=== PATIENT | female | born 1945 | race Caucasian/White ===

== ENCOUNTER → 2017-07-26 07:08 | Outpatient (CLI) | payer MEDICARE, SELFPAY ==
[2017-07-26 10:10] LABS: Absolute Lymphocyte Count 1.75 X10^3/ul (0.83-4.51); Absolute Neutrophil Count 1.3 X10^3/uL (2.0-7.7); Basophil# 0.02 X10^3/uL; Basophil% 0.6 % (0-1); Eosinophil# 0.13 X10^3/uL; Eosinophils% 3.7 % (0-5); Hematocrit 35.9 % (37-47); Hemoglobin 11.8 g/dl (12.0-15.0); Lymphocyte # 1.75 X10^3/ul (4.0); Lymphocyte % 49.7 % (19-41); Mean Corp Hgb Conc 32.9 g/gl (32-36); Mean Corpuscular Hgb 29.5 pg (27.0-32.0); Mean Corpuscular Volume 89.8 fL (81-99); Mean Platelet Vol. 9.3 fl (6.2-12.0); Monocyte# 0.35 X10^3/uL; Monocyte% 9.9 % (0-10); Neutrophil # 1.27 X10^3/uL (2.7-7.7); Neutrophil % 36.1 % (47-70); POSITIVE COUNT NO; POSITIVE DIFFERENTIAL NO; POSITIVE MORPHOLOGY NO; Platelet Count 174 K/mm3 (150-450); RBC Distribution Width CV 13.1 % (11.6-14.6); RBC Distribution Width SD 42.4 fl (35.1-43.9); White Blood Count 3.5 K/mm3 (4.4-11.0)
[2017-07-26 10:20] LABS: Albumin, Serum 3.5 g/dL (3.2-5.0); BUN 27 mg/dL (7-18); BUN/Creat Ratio 29.9 RATIO (10-20); Calcium,Total 8.4 mg/dL (8.5-10.1); Chloride 104 mmol/L (98-107); EST Glomerular Filtration Rate 65 mL/min (>60); Est Glom Filt Rate - Afr Amer 79 mL/min (>60); Glucose 104 mg/dL (74-106); Magnesium 1.7 mg/dL (1.6-2.6); Phosphorus 2.8 mg/dL (2.5-4.9); Potassium 3.2 mmol/L (3.5-5.1); Sodium Level 139 mmol/L (136-145)
[2017-07-27 09:00] LABS: Vitamin D,25 Hydroxy 27.7 ng/mL (19.95-100.01)
[2017-07-27 09:03] LABS: PTHIN 44.4 pg/mL (18.4-80.1)
== END ==
PROVIDERS: Family Provider Family Medicine; PCP Family Medicine; Visit Provider Internal Medicine Nephrology
DX: N18.3 Chronic kidney disease, stage 3 (moderate) (principal); D63.1 Anemia in chronic kidney disease; E55.9 Vitamin D deficiency, unspecified
CPT/HCPCS: 36415; 80069; 82306; 82570; 83735; 83970; 85025

== ENCOUNTER → 2017-10-13 14:12 | Outpatient (CLI) | payer MEDICARE, SELFPAY ==
[2017-10-13 14:23] LABS: Bacteria 0 SEEN /hpf (None Seen); Mucous, Urine 0 SEEN /hpf (<or=2+); Squamous Epithelial Cells - UA 0 SEEN /hpf (5-10)
[2017-10-13 14:28] LABS: Color, Urine Yellow (Yellow); Glucose, Dipstick 1000 mg/dl (Normal); Ketone-Dipstick Negative (Negative); Leukocyte Esterase-Dipstick 25 /ul (Negative); Nitrite-Dipstick Negative (Negative); Occult Blood-Urine 250 /ul (Negative); Protein-Dipstick 15 mg/dl (Negative); Urine Bilirubin Dipstick Negative (Negative); Urine Clarity Clear (Clear); Urine Urobilinogen Normal (Normal)
[2017-10-13 14:38] LABS: White Blood Cells 5-10 SEEN /hpf (0-5)
[2017-10-13 14:40] LABS: Red Blood Cells-Urine 5-10 SEEN /hpf (0-5)
== END ==
PROVIDERS: Family Provider Family Medicine; PCP Family Medicine; Visit Provider Nurse Practitioner Family
DX: N39.0 Urinary tract infection, site not specified (principal)
CPT/HCPCS: 81001; 87086; 87088; 87186

== ENCOUNTER → 2017-12-05 08:44 | Outpatient (CLI) | payer MEDICARE, SELFPAY ==
--- NOTE | 2017-12-05 09:04 | RAD_ITS ---
STUDY: X-RAY - ACUTE ABDOMINAL SERIES REASON FOR EXAM: Female, 72 years old. Abdominal pain for 2 weeks, most prominent in the right lower quadrant. History of colon cancer, hysterectomy, appendectomy, bladder wall repair. TECHNIQUE: Single view of the chest. Supine, and erect view(s) of the abdomen were obtained. COMPARISON: None. FINDINGS: The lungs are clear and expanded. Normal size heart. Normal mediastinum and ines. Normal visualized pulmonary arteries. There is mild atherosclerotic calcification of the aortic arch. There is a non-specific bowel gas pattern. There is no demonstrated free intraperitoneal air. Surgical clips of prior cholecystectomy project in the right upper quadrant of the abdomen. There are a few small calcified phleboliths in the right pelvic soft tissues. There are multilevel degenerative changes of the visualized spine, as well as early degenerative arthrosis of the bilateral sacroiliac and hip joints. RAD/Acute Abdomen Inc Chest IMPRESSION: 1. Prior cholecystectomy. 2. Nonspecific bowel gas pattern. No free gas. 3. No acute cardiopulmonary disease. Electronically Signed: Ajiht Bah MD at 19:28 EDT , Service support ,
[2017-12-05 10:26] LABS: Absolute Lymphocyte Count 1.46 X10^3/ul (0.83-4.51); Absolute Neutrophil Count 1.4 X10^3/uL (2.0-7.7); Basophil# 0.02 X10^3/uL; Basophil% 0.6 % (0-1); Eosinophil# 0.12 X10^3/uL; Eosinophils% 3.7 % (0-5); Hematocrit 37.1 % (37-47); Hemoglobin 12.4 g/dl (12.0-15.0); Lymphocyte # 1.46 X10^3/ul (4.0); Lymphocyte % 44.5 % (19-41); Mean Corp Hgb Conc 33.4 g/gl (32-36); Mean Corpuscular Hgb 30.5 pg (27.0-32.0); Mean Corpuscular Volume 91.4 fL (81-99); Monocyte# 0.25 X10^3/uL; Monocyte% 7.6 % (0-10); Neutrophil # 1.43 X10^3/uL (2.7-7.7); Neutrophil % 43.6 % (47-70); Platelet Count 179 K/mm3 (150-450); RBC Distribution Width CV 12.6 % (11.6-14.6); RBC Distribution Width SD 42.4 fl (35.1-43.9); Red Blood Count 4.06 M/mm3 (4.2-5.4); White Blood Count 3.3 K/mm3 (4.4-11.0)
[2017-12-05 10:37] LABS: POSITIVE COUNT NO; POSITIVE DIFFERENTIAL NO; POSITIVE MORPHOLOGY NO
[2017-12-05 10:39] LABS: ALB/GLOB Ratio 1.1 RATIO (0.9-2.4); AST(SGOT) 17 U/L (15-37); Alanine Aminotransfer ALT/SGPT 21 U/L (13-56); Albumin, Serum 3.8 g/dL (3.2-5.0); Alkaline Phosphatase 40 U/L (45-117); Anion Gap 7 (5-15); BUN 26 mg/dL (7-18); Calcium,Total 8.9 mg/dL (8.5-10.1); Chloride 106 mmol/L (98-107); Creatinine, Serum 1.04 mg/dL (0.55-1.02); EST Glomerular Filtration Rate 55 mL/min (>60); Est Glom Filt Rate - Afr Amer 67 mL/min (>60); Globulin 3.4 g/dL (2.2-4.2); Glucose 111 mg/dL (74-106); Protein, Total 7.2 g/dL (6.4-8.2); Sodium Level 140 mmol/L (136-145)
== END ==
PROVIDERS: Family Provider Family Medicine; PCP Family Medicine; Visit Provider Family Medicine
DX: R10.9 Unspecified abdominal pain (principal); Z90.49 Acquired absence of other specified parts of digestive tract
CPT/HCPCS: 36415; 74022; 80053; 85025

== ENCOUNTER → 2017-12-14 11:36 | Outpatient (CLI) | payer MEDICARE, SELFPAY | PROVIDERS: Family Provider Family Medicine; PCP Family Medicine; Visit Provider Family Medicine | DX: N39.0 Urinary tract infection, site not specified (principal) | CPT/HCPCS: 87086; 87088; 87186 ==

== ENCOUNTER → 2018-07-15 07:06 | Outpatient (CLI) | payer MEDICARE, SELFPAY ==
[2018-07-15 10:15] LABS: Hematocrit 35.8 % (37-47); Hemoglobin 12.4 g/dl (12.0-15.0); Mean Corp Hgb Conc 34.6 g/gl (32-36); Mean Corpuscular Hgb 31.2 pg (27.0-32.0); Mean Corpuscular Volume 90.2 fL (81-99); Mean Platelet Vol. 9.6 fl (6.2-12.0); Platelet Count 173 K/mm3 (150-450); RBC Distribution Width CV 11.8 % (11.6-14.6); RBC Distribution Width SD 38.2 fl (35.1-43.9); Red Blood Count 3.97 M/mm3 (4.2-5.4); White Blood Count 2.9 K/mm3 (4.4-11.0)
[2018-07-15 10:19] LABS: Scan Indicated on CBC? Y/N NO
[2018-07-15 10:23] LABS: Albumin, Serum 3.7 g/dL (3.2-5.0); BUN 22 mg/dL (7-18); Calcium,Total 8.8 mg/dL (8.5-10.1); Chloride 103 mmol/L (98-107); Creatinine, Serum 1.05 mg/dL (0.55-1.02); EST Glomerular Filtration Rate 55 mL/min (>60); Est Glom Filt Rate - Afr Amer 66 mL/min (>60); Glucose 116 mg/dL (74-106); Magnesium 1.9 mg/dL (1.6-2.6); Phosphorus 3.9 mg/dL (2.5-4.9); Potassium 3.4 mmol/L (3.5-5.1); Sodium Level 137 mmol/L (136-145)
[2018-07-15 10:29] LABS: PTHIN 23.8 pg/mL (18.4-80.1)
[2018-07-15 10:43] LABS: Microalbumin,Random Urine 29.6 mg/L (NO RANGE EST.); Microalbumin:Creatinine Ratio 58.4 mg/g CRE (<30 mg/g CRE)
== END ==
PROVIDERS: Family Provider Family Medicine; PCP Family Medicine; Referring Provider Internal Medicine Nephrology; Visit Provider Internal Medicine Nephrology
DX: E55.9 Vitamin D deficiency, unspecified (principal); N18.3 Chronic kidney disease, stage 3 (moderate); D63.1 Anemia in chronic kidney disease
CPT/HCPCS: 36415; 80069; 82043; 82306; 82570; 83735; 83970; 85027

== ENCOUNTER → 2018-08-06 06:26 | Outpatient (CLI) | payer MEDICARE, SELFPAY ==
[2018-07-15 08:55] VITALS: BMI 27.4
--- NOTE | 2018-08-06 10:32 | STRESSREP_ITS ---
Stress Test Report Date: 08-06-18 Procedure: Exercise tolerance test/imaging study Indications: Chest pain; shortness of breath/dyspnea; cardiac dysrhythmia Consent: Per the patient Procedure: The patient exercised on a Miguelangel protocol for 3 minutes completing Stage I achieving a peak heart rate of 176 bpm (119 % predicted maximal heart rate) with a peak blood pressure 200/46 mmHg and a peak MET capacity of 4 METs. The baseline ECG demonstrated normal sinus rhythm . The peak exercise ECG demonstrated approximately 1-[address] segment depression in leads II, III, and aVF, and approximately 1 mm of horizontal/upsloping ST segment depression in leads V4 through V6 with gradual resolution towards baseline and recovery . There were occasional PACs and PVCs pretest, during exercise, and recovery The functional capacity was considered decreased . There was chest pressure during exercise with spontaneous resolution and recovery . The examination was discontinued secondary to dysrhythmia, chest discomfort, and fatigue . Impression: 1. Technically adequate (percent predicted maximal heart rate greater than 85%) exercise tolerance test 2. Peak exercise ECG demonstrated approximately 1-[address] segment depression in leads II, III, and aVF, and approximately 1 mm of horizontal/upsloping ST segment depression in leads V4 through V6 with gradual resolution towards baseline and recovery 3. There were occasional PACs and PVCs pretest, during exercise, and recovery 4. Nuclear images pending Myocardial perfusion imaging study: Technique: The patient was injected with 11.6 mCi of technetium 99m Cardiolite and subsequently rest SPECT Cardiolite nuclear imaging was obtained in the horizontal long, vertical long, and short axis views. The patient exercised on a Miguelangel protocol for 3 minutes completing Stage I achieving a peak heart rate of 176 bpm (119 % predicted maximal heart rate) with a peak blood pressure 200/46 mmHg and a peak MET capacity of For 4 METs. The patient was injected with 33.1 mCi of technetium 99m Cardiolite and subsequently stress SPECT Cardiolite nuclear imaging was obtained in the horizontal long, vertical long, and short axis views. A gated Cardiolite study at peak stress was obtained. Interpretation: Rest and stress SPECT Cardiolite nuclear imaging status post realignment, normalization, and attenuation correction, demonstrates a small area of subtle diminished tracer uptake in the distal inferior/inferoapical area status post stress . There is end systolic thickening and brightening. The gated Cardiolite study demonstrates myocardial thickening and inward wall motion. The reported LVEF is 86 %. Impression: 1. Rest and stress SPECT Cardiolite nuclear imaging demonstrate A small area of subtle diminished tracer uptake in the distal inferior/inferoapical areas status post stress potentially compatible with shifting soft tissue attenuation/artifact although a small area of stress induced myocardial ischemia cannot necessarily be excluded . 2. The gated Cardiolite study reports an LVEF of 86 %. This note was generated with [employer] software. It may contain incorrect words, spelling, and punctuation that were not noted in checking the note before signing.
== END ==
PROVIDERS: Family Provider Family Medicine; PCP Family Medicine; Referring Provider Nurse Practitioner Family; Visit Provider Nurse Practitioner Family
DX: I25.10 Atherosclerotic heart disease of native coronary artery without angina pectoris (principal); I10 Essential (primary) hypertension; E78.2 Mixed hyperlipidemia; R07.9 Chest pain, unspecified
CPT/HCPCS: 78452; 93017; A9500; A4216

== ENCOUNTER → 2018-08-09 12:25 | Outpatient (CLI) | payer MEDICARE, SELFPAY ==
[2018-07-15 08:55] VITALS: BMI 27.4
== END ==
PROVIDERS: Family Provider Family Medicine; PCP Family Medicine; Referring Provider Family Medicine; Visit Provider Family Medicine
DX: R35.0 Frequency of micturition (principal)
CPT/HCPCS: 87077; 87086; 87088; 87186

== ENCOUNTER 2018-08-14 06:46 | Day surgery (SDC) | payer MEDICARE, SELFPAY ==
[2018-07-15 08:55] VITALS: BMI 27.4
[2018-08-12 09:35] VITALS: BMI 26.9
--- NOTE | 2018-08-12 10:35 | RAD_ITS ---
STUDY: X-RAY CHEST REASON FOR EXAM: Female, 72 years old. Chest pain for 2 to 3 months. TECHNIQUE: PA and lateral views of the chest. COMPARISON: Acute abdominal series with chest, January 04, 2018. FINDINGS: The lungs are clear and hyperexpanded. There is no demonstrated pleural abnormality. Normal size heart. Normal mediastinum and ines. Normal visualized pulmonary arteries. Normal visualized aortic arch and descending thoracic aorta. Normal visualized thoracic spine. There is evidence of anterior fusion of lower cervical spine. There is degenerative osteoarthritis of the bilateral shoulders. There is no demonstrated abnormality of the visualized soft tissue structures of the upper abdomen. RAD/Chest PA and Lateral IMPRESSION: No acute cardiopulmonary disease or major interval change. Electronically Signed: Timothy Brand DO at 22:38 EST Tel [phone], Service support ,
[2018-08-12 12:35] LABS: Prothrombin Time (Protime)PT. 13.4 SECONDS (11.7-14.9)
[2018-08-12 12:52] LABS: Hematocrit 40.2 % (37-47); Hemoglobin 13.7 g/dl (12.0-15.0); Mean Corp Hgb Conc 34.1 g/gl (32-36); Mean Corpuscular Hgb 31.1 pg (27.0-32.0); Mean Corpuscular Volume 91.4 fL (81-99); Platelet Count 226 K/mm3 (150-450); RBC Distribution Width SD 39.7 fl (35.1-43.9); White Blood Count 4.2 K/mm3 (4.4-11.0)
[2018-08-12 12:57] LABS: Scan Indicated on CBC? Y/N NO
[2018-08-12 13:02] LABS: Anion Gap 12 (5-15); BUN 19 mg/dL (7-18); BUN/Creat Ratio 17.3 RATIO (10-20); Calcium,Total 9.1 mg/dL (8.5-10.1); Chloride 102 mmol/L (98-107); EST Glomerular Filtration Rate 52 mL/min (>60); Est Glom Filt Rate - Afr Amer 63 mL/min (>60); Glucose 206 mg/dL (74-106); Potassium 3.8 mmol/L (3.5-5.1); Sodium Level 140 mmol/L (136-145)
[2018-08-13 09:28] VITALS: BMI 26.9
--- NOTE | 2018-08-14 09:13 | CL.D_ITS ---
Patient Name: LAW TSAHL Study Date: 08/14/2018 Performing: Nitin Rodriguez MD Ht: 64.17 inches 163 cm : 1945 Wt: 156.53 lbs 71 kg Age: 72 Gender: female BSA: 1.77 PROCEDURE(S) PERFORMED UR29-GWF/COR/LV CLINICAL PROFILE AND INDICATIONS Indications: Suspected CAD Heart Failure: None Stress/Imaging Stress Test w/SPECT MPI: Yes Result: PositiveStress Test with SPECT MPI: Positive Angina Classification Anginal Classification w/in 2 Weeks: CCS III CAD Presentations: Other: Chest Pain / Shortness of Breath CONCLUSIONS Elevated Left Ventricular End Diastolic Pressure (mild) Normal LV size, wall motion,and systolic function LVEF: by LV gram 65 % [place] Multivessel CAD (non angiographically significant) RECOMMENDATIONS Risk factor modification Medical therapy Follow up with primary care physician for non cardiac evaluation of symptoms DESCRIPTION OF PROCEDURE The patient arrived to the procedure lab. The risks and benefits of the procedure as well as a full d escription of our services here and current unavailability of surgical backup were fully explained to the patient and/or their significant other prior to the catheterization. The Timeout was completed, verifying the correct patient and procedure. The patient's procedural site was prepped and draped in the usual fashion. Local anesthetic was given subcutaneously to right groin region with Lidocaine 2%. Using a modified Seldinger technique, arterial access was obtained via the right femoral artery, a 4 Fr sheath was inserted Left Coronary Artery selective angiography was performed in multiple views us ing a 4 Fr. JL5 catheter. Right Coronary Artery selective angiography was then performed in multiple views using a 4 Fr. 3DRC catheter. Left Ventriculography was performed in JACK projection using a 4 Fr . Pigtail catheter. LV to AO pullback pressures were then recorded.The arterial sheath was pulled and manual compression applied until hemostasis is achieved. CORONARY ANGIOGRAPHY DOMINANCE: Right Dominant LEFT HEART ASSESSMENT Left Ventricular Ejection Fraction: by LV Gram 65 % Normal LV wall motion Elevated Left Ventricular End Diastolic Pressure LVEDP: 15 mmHg LEFT MAIN: Angiographically normal LEFT ANTERIOR DECENDING ARTERY: Mild luminal irregularities PROX LAD: Moderate calcification MID LAD: Moderate calcification CIRCUMFLEX ARTERY: OSTIAL CIRC: Eccentric: 10 % Stenosis RIGHT CORONARY ARTERY: Mild luminal irregularities PROX RCA: Mild calcification, Eccentric: 10 % Stenosis MID RCA: Mild calcification VALVE FINDINGS: Normal Aortic Valve function Normal Mitral Valve function AORTIC ROOT: Angiographically normal COMPLICATIONS No Complications PROCEDURE MEDICATIONS Versed 1 mg IV Oxygen: 2 L/min via nasal cannula SUMMARY OF HEMODYNAMIC DATA Time AIR REST ECG 07:06:22 AO 145/50 (84) SA 08:16:30 LV 165/-14, 16 08:33:06 LV 152/-16, 15 08:33:13 LV 145/-2, 15 08:34:08 LV 154/-3, 16 08:34:15 LVp 157/1, 13 08:34:25 AOp 155/56 (97) 08:34:30 Signed By Nitin Rodriguez MD On 08/14/2018 09:13:14 Nitin Rodriguez MD
== END 2018-08-14 13:00 | disposition home or self-care (01) ==
LOC: CLSP 06:47
PROVIDERS: Family Provider Family Medicine; PCP Family Medicine; Referring Provider Internal Medicine Cardiovascular Disease; Visit Provider Internal Medicine Cardiovascular Disease
DX: I25.10 Atherosclerotic heart disease of native coronary artery without angina pectoris (principal); I11.0 Hypertensive heart disease with heart failure; I50.1 Left ventricular failure, unspecified; I47.2 Ventricular tachycardia; E78.2 Mixed hyperlipidemia; R07.89 Other chest pain; R94.39 Abnormal result of other cardiovascular function study; E11.9 Type 2 diabetes mellitus without complications; Z79.4 Long term (current) use of insulin; Z79.899 Other long term (current) drug therapy
CPT/HCPCS: 36415; 71046; 80048; 85027; 85610; 85730; 93458; 99152; 99153; J7040; C1769; C1894; Q9967

== ENCOUNTER → 2018-08-20 12:12 | Outpatient (CLI) | payer MEDICARE, SELFPAY ==
[2018-08-13 09:28] VITALS: BMI 26.9
--- NOTE | 2018-08-20 12:14 | BI_ITS ---
MAMMOGRAPHY - BILATERAL SCREENING REASON FOR EXAM: Female, 72 years old. Routine annual screening examination. PERTINENT HISTORY: Sister with breast cancer. TECHNIQUE: Digital bilateral breast danyell (3D mammographic acquisition) in the CC and MLO projections. 2-D mediolateral oblique (MLO) and craniocaudad (CC) views of both breasts were obtained. CAD: Full Field Digital Mammography with Computer Added Detection was performed. COMPARISON: Comparison is made with prior study dated June 22, 2016 and May 26, 2015. FINDINGS: Breast Composition: There are scattered areas of fibroglandular density. There are no dominant masses or suspicious calcifications. There is a 2 mm nodule in the superior lateral anterior aspect of the left breast. This may present a small cyst. Correlation with ultrasound is recommended. No other significant abnormalities are identified. BI/SCREENING MAMM (CAD), BILAT IMPRESSION: 2 mm well-defined nodule in the upper lateral anterior aspect of the left breast as described. Correlation with ultrasound is recommended. ASSESSMENT CATEGORY: BIRADS Category 0: Incomplete. Need additional imaging evaluation. A letter regarding these results will be sent to the patient by the facility within 30 days. Approximately 10% of breast cancers are not detected by mammography. A normal mammogram should not delay biopsy of a clinically suspicious abnormality. [id number] Electronically Signed: Addi Azar, at 14:51 EDT , Service support ,
--- NOTE | 2018-08-20 12:22 | BD_ITS ---
STUDY: DUAL ENERGY X-RAY ABSORPTIOMETRY / DXA REASON FOR EXAM: Female, 72 years old. The patient is postmenopausal. Loss of height. TECHNIQUE: Bone Mineral Density (BMD) measurements of lumbar spine and bilateral hips were obtained. COMPARISON: Comparison is made with prior study dated June 22, 2016. FINDINGS: Lumbar Spine (L1-L4): g/cm2 (1.278) / T-score (0.9) / Z-score (2.6) Findings are suggestive of normal bone density with a low fracture risk. Left Femur Total: g/cm2 (0.933) / T-score (-0.6) / Z-score (1.1) Left Femoral Neck: g/cm2 (0.878) / T-score (-1.2) / Z-score (0.7) Right Femur Total: g/cm2 (0.954) / T-score (-0.4) / Z-score (1.2) Right Femoral Neck: g/cm2 (0.881) / T-score (-1.1) / Z-score (0.7) The T-Scores on the most recent prior examination were: Lumbar Spine (L1-L4): There has been improvement of bone density since the previous examination. Left Femur Total: which represents a worsening of 3%. Right Femur Total: which represents a worsening of 2.8%. BD/Dexa Bone Density Study IMPRESSION: The patient is considered osteopenic as outlined below according to World Teddy Organization (WHO) criteria with a low fracture risk. There has been worsening of bone density since the previous examination. Reference Information: The T-score is the number of standard deviations above or below the standard which is normal for young adults at their peak bone mineral density. The World Health Organization (WHO) interprets the T-scores as follows: Above -1 Normal bone density Between -1 and -2.5 Osteopenia Equal to / or below -2.5 Osteoporosis As a practical clinical guideline, osteopenia may be graded as follows: Mild -1 through -1.5 Moderate -1.6 through -2.0 Severe -2.1 through -2.4 The Z-score is the number of standard deviations above or below age-matched controls. A Z-score of less than -1.5 would be considered abnormal. References: 1. NIH Osteoporosis and Related Bone Diseases http://www.osteo.org 2. International Society for Clinical Densitometry http://www.iscd.org 3. National Osteoporosis Foundation http://www.nof.org Electronically Signed: Addi Azar, at 15:46 EDT , Service support ,
== END ==
PROVIDERS: Family Provider Family Medicine; PCP Family Medicine; Referring Provider Family Medicine; Visit Provider Family Medicine
DX: N95.9 Unspecified menopausal and perimenopausal disorder (principal); Z12.31 Encounter for screening mammogram for malignant neoplasm of breast; N63.20 Unspecified lump in the left breast, unspecified quadrant; Z80.3 Family history of malignant neoplasm of breast
CPT/HCPCS: 77063; 77067; 77080

== ENCOUNTER → 2018-08-23 10:28 | Outpatient (CLI) | payer MEDICARE, SELFPAY ==
[2018-08-13 09:28] VITALS: BMI 26.9
--- NOTE | 2018-08-23 10:35 | US_ITS ---
STUDY: ULTRASOUND BREAST - LEFT REASON FOR EXAM: Female, 72 years old. Abnormal screening mammogram. TECHNIQUE: Axial and longitudinal images of the LEFT breast were performed with a high resolution ultrasound transducer. COMPARISON: Comparison is made with prior mammogram dated August 20, 2018. FINDINGS: LEFT Breast: The lateral half of the left breast was examined by ultrasound. There is evidence of fibroglandular tissue. No solid or cystic mass lesion is seen. US/Breast Limited Unilateral IMPRESSION: Unremarkable sonogram of the lateral half of the left breast as described. Routine mammographic follow-up is recommended. ASSESSMENT CATEGORY: BIRADS Category 1: Negative. A letter regarding these results will be sent to the patient by the facility within 30 days. Electronically Signed: Addi Azar, at 14:06 EDT , Service support ,
== END ==
PROVIDERS: Family Provider Family Medicine; PCP Family Medicine; Referring Provider Family Medicine; Visit Provider Family Medicine
DX: R92.8 Other abnormal and inconclusive findings on diagnostic imaging of breast (principal)
CPT/HCPCS: 76642

== ENCOUNTER → 2019-05-29 08:26 | Outpatient (CLI) | payer MEDICARE, SELFPAY ==
[2018-08-26 10:25] VITALS: BMI 27.8
[2019-05-29 11:20] LABS: Anion Gap 7 (5-15); BUN 23 mg/dL (7-18); BUN/Creat Ratio 20.4 RATIO (10-20); Calcium,Total 9.2 mg/dL (8.5-10.1); Chloride 107 mmol/L (98-107); Creatinine, Serum 1.13 mg/dL (0.55-1.02); EST Glomerular Filtration Rate 50 mL/min (>60); Est Glom Filt Rate - Afr Amer 60 mL/min (>60); Glucose 97 mg/dL (74-106); Potassium 3.9 mmol/L (3.5-5.1); Sodium Level 140 mmol/L (136-145)
== END ==
PROVIDERS: Family Provider Family Medicine; PCP Family Medicine; Referring Provider Family Medicine; Visit Provider Family Medicine
DX: I10 Essential (primary) hypertension (principal)
CPT/HCPCS: 36415; 80048

== ENCOUNTER → 2019-07-25 07:17 | Outpatient (CLI) | payer MEDICARE, SELFPAY ==
[2018-08-26 10:25] VITALS: BMI 27.8
[2019-07-25 10:06] LABS: Hematocrit 37.8 % (37-47); Hemoglobin 12.6 g/dL (12.0-15.0); Mean Corp Hgb Conc 33.3 g/dL (32-36); Mean Corpuscular Hgb 30.1 pg (27.0-32.0); Mean Corpuscular Volume 90.2 fL (81-99); Mean Platelet Vol. 9.7 fl (6.2-12.0); Platelet Count 205 K/mm3 (150-450); RBC Distribution Width CV 12.3 % (11.6-14.6); RBC Distribution Width SD 39.9 fl (35.1-43.9); Red Blood Count 4.19 M/mm3 (4.2-5.4); White Blood Count 3.8 K/mm3 (4.4-11.0)
[2019-07-25 10:16] LABS: Albumin, Serum 3.6 g/dL (3.2-5.0); BUN 23 mg/dL (7-18); BUN/Creat Ratio 20.9 RATIO (10-20); Calcium,Total 8.8 mg/dL (8.5-10.1); Chloride 105 mmol/L (98-107); Color, Urine Yellow (Yellow); EST Glomerular Filtration Rate 52 mL/min (>60); Est Glom Filt Rate - Afr Amer 62 mL/min (>60); Glucose 93 mg/dL (74-106); Glucose, Dipstick 1000 mg/dl (Normal); Ketone-Dipstick Negative (Negative); Leukocyte Esterase-Dipstick Negative /ul (Negative); Nitrite-Dipstick Negative (Negative); Occult Blood-Urine 10 /ul (Negative); Phosphorus 3.6 mg/dL (2.5-4.9); Potassium 3.6 mmol/L (3.5-5.1); Protein-Dipstick Negative (Negative); Sodium Level 139 mmol/L (136-145); Specific Gravity, Urine 1.015 (1.002-1.030); Urine Bilirubin Dipstick Negative (Negative); Urine Clarity Clear (Clear); Urine Urobilinogen Normal (Normal)
[2019-07-25 10:31] LABS: Vitamin D,25 Hydroxy 41.5 ng/mL (29.95-100.01)
[2019-07-25 10:32] LABS: PTHIN 43.7 pg/mL (18.4-80.1)
[2019-07-25 10:41] LABS: Microalbumin,Random Urine 10.5 mg/L (NO RANGE EST.); Protein, Urine (Random) 8.2 mg/dL (<11.9); Protein:Creat Ratio 109 mg/g CRE (0-200)
== END ==
PROVIDERS: PCP Family Medicine; Referring Provider Internal Medicine Nephrology; Visit Provider Internal Medicine Nephrology
DX: N18.3 Chronic kidney disease, stage 3 (moderate) (principal); D63.1 Anemia in chronic kidney disease; E55.9 Vitamin D deficiency, unspecified
CPT/HCPCS: 36415; 80069; 81002; 82043; 82306; 82570; 83970; 84156; 85027

== ENCOUNTER → 2019-11-21 12:06 | Outpatient (CLI) | payer MEDICARE, SELFPAY ==
[2019-08-01 09:58] VITALS: BMI 28.9
--- NOTE | 2019-11-21 12:08 | BI_ITS ---
MAMMOGRAPHY - BILATERAL SCREENING REASON FOR EXAM: Female, 74 years old. Routine annual screening examination. PERTINENT HISTORY: Sister with breast cancer. TECHNIQUE: Digital bilateral breast bebo (3D mammographic acquisition) in the CC and MLO projections. 2-D mediolateral oblique (MLO) and craniocaudad (CC) views of both breasts were obtained. CAD: Full Field Digital Mammography with Computer Added Detection was performed. COMPARISON: Comparison is made with prior examination of August 20, 2018 and June 22, 2016. FINDINGS: Breast Composition: There are scattered areas of fibroglandular density. There are no dominant masses or suspicious calcifications. No other significant abnormalities are identified. There has been no significant change since the prior study. BI/SCREEN MAMM (CAD) W/BEBO BILAT IMPRESSION: Stable bilateral screening mammogram. Yearly follow-up mammogram recommended. (A) ASSESSMENT CATEGORY: BIRADS Category 1: Negative. A letter regarding these results will be sent to the patient by the facility within 30 days. Approximately 10% of breast cancers are not detected by mammography. A normal mammogram should not delay biopsy of a clinically suspicious abnormality. [id number] Electronically Signed: Addi Azar, at 13:06 EDT , Service support ,
== END ==
PROVIDERS: PCP Family Medicine; Referring Provider Family Medicine; Visit Provider Family Medicine
DX: Z12.31 Encounter for screening mammogram for malignant neoplasm of breast (principal); Z80.3 Family history of malignant neoplasm of breast
CPT/HCPCS: 77063; 77067

== ENCOUNTER → 2019-11-24 09:07 | Outpatient (CLI) | payer MEDICARE, SELFPAY ==
[2019-08-01 09:58] VITALS: BMI 28.9
[2019-11-24 12:49] LABS: AST(SGOT) 13 U/L (15-37); Alanine Aminotransfer ALT/SGPT 19 U/L (13-56); Albumin, Serum 3.7 g/dL (3.2-5.0); Alkaline Phosphatase 50 U/L (45-117); Anion Gap 3 (5-15); BUN 24 mg/dL (7-18); BUN/Creat Ratio 25.4 RATIO (10-20); Calcium,Total 9.2 mg/dL (8.5-10.1); Chloride 107 mmol/L (98-107); Cholesterol 141 mg/dL (200); Creatinine, Serum 0.94 mg/dL (0.55-1.02); EST Glomerular Filtration Rate 61 mL/min (>60); Est Glom Filt Rate - Afr Amer 74 mL/min (>60); Globulin 3.7 g/dL (2.2-4.2); Glucose 106 mg/dL (74-106); High Density Lipoprotein 51 mg/dL; Potassium 3.5 mmol/L (3.5-5.1); Protein, Total 7.4 g/dL (6.4-8.2); Sodium Level 141 mmol/L (136-145); Triglycerides 81 mg/dL; Very Low Density Lipoprotein 16 mg/dL (5-40)
== END ==
PROVIDERS: PCP Family Medicine; Referring Provider Family Medicine; Visit Provider Family Medicine
DX: E11.65 Type 2 diabetes mellitus with hyperglycemia (principal)
CPT/HCPCS: 36415; 80053; 80061

== ENCOUNTER 2020-02-18 11:38 | Emergency (ER) | payer MEDICARE, SELFPAY ==
[2020-01-29 13:26] VITALS: BMI 28.7
[2020-02-18 11:39] VITALS: BP 154/80; PULSE 72; RESP 16; TEMP 36.1; O2SAT 98; BMI 27.8
[2020-02-18 11:41] VITALS: BP 154/80; PULSE 72; RESP 16; TEMP 36.1; O2SAT 98
--- NOTE | 2020-02-18 11:52 | ED.VIS.GEN ---
History of Present Illness Chief Complaint: General Illness Informant: Patient Onset: Days Context: Gradual Onset Timing: Continuous Current Severity: Mild Maximum Severity: Mild Narrative: The patient is a 74-year-old female medical history significant for hypertension, hyperlipidemia, diabetes that presents to the emergency department concern for COVID-19. Patient's has tested positive. She is been quarantining with him. Over the past 2 days, she states she is had a mild tickle in her throat. Today, she was mildly nauseated. She denies fever chills. She denies cough or shortness of breath. She denies syncope. She states otherwise, she has been doing well. She states because of the exposure, she thought that she may benefit from testing. Prior similar symptoms: No Recent Illness/Hospitalization: No Past Medical History - Allergies and Home Meds Allergies/Adverse Reactions: Allergies exenatide [From Byetta] Adverse Reaction (Severe, Verified 02/18/20 11:41) hives, nausea, vomiting codeine Adverse Reaction (Intermediate, Verified 02/18/20 11:41) Vomiting liraglutide [From Victoza] Adverse Reaction (Intermediate, Verified 02/18/20 11:41) Nausea,vomiting Primary Care Physician: Nitin Blair MD [Primary Care Provider] - Prior records reviewed: Yes Past Medical History: - - Hypertension, diabetes Surgical History: noncontributory Smoking Status: Never smoker Review of Systems General: Reports: Malaise. Denies: Chills, Fever, Sweats Eyes: Denies: Visual changes - bilaterally, Diplopia ENT: Denies: Rhinorrhea, Sore throat Cardiovascular: Denies: Chest pain, Palpitations Respiratory: Denies: Dyspnea, Cough, Dyspnea on exertion Gastrointestinal: Reports: Nausea. Denies: Abdominal pain, Vomiting, Diarrhea, Melena, Hematochezia Genitourinary: Denies: Dysuria, Hematuria, Frequency Musculoskeletal: Denies: Back pain, Extremity Pain Skin: Denies: Rash, Wounds Neurological: Denies: Headache, Weakness, Numbness Physical Exam Vital Signs/Narrative: Vital Signs Temp Pulse Resp BP Pulse Ox 02/18/20 11:41 97 F L 72 16 154/80 H 98 02/18/20 11:39 97 F L 72 16 154/80 H 98 Inital Vital Signs reviewed: Yes General: Well nourished, Well developed, No Acute Distress Head: Normocephalic, Atraumatic Eyes: Perrl, EOMI ENT: Moist mucous membranes, No rhinorrhea Neck: Supple, Nontender Cardiovascular: Regular rate, Regular rhythm, No murmurs Respiratory: No distress, CTA bilaterally, Chest nontender Abdomen: Soft, Nontender, Nondistended, Normal bowel sounds Back: Nontender, Normal Inspection Extremities: Nontender, No edema Skin: Normal color, No rash Neurological: Alert, Oriented x3, Cranial nerves II-XII grossly intact, Normal Strength, Normal Sensation Psychological: Normal affect, Normal Mood Diagnostic/Tx/Re-eval - Medical Decision Making Patient is very well-appearing. She is not tachypneic, hypoxic, or tachycardic. She is in no distress. Her abdomen is soft and nontender. Her symptoms do seem very limited. At this point, we will obtain a send out COVID. She does feel comfortable with self quarantine. She was counseled on concerning symptoms and reasons to return. She will be discharged home. Impression 1. Exposure to COVID-19 ED Disposition - Plan for ED Patient: Instructions: ED Viral Syndrome Referrals: Nitin Blair MD [Primary Care Provider] -
== END 2020-02-18 12:34 | disposition home or self-care (01) ==
LOC: ED 12:19
PROVIDERS: Emergency Provider Emergency Medicine; PCP Family Medicine
DX: U07.1 COVID-19 (principal); I10 Essential (primary) hypertension; E78.5 Hyperlipidemia, unspecified; E11.9 Type 2 diabetes mellitus without complications; Z79.4 Long term (current) use of insulin; Z79.82 Long term (current) use of aspirin; Z79.899 Other long term (current) drug therapy
CPT/HCPCS: 87635; 99282; C9803; U0003

== ENCOUNTER → 2020-07-09 10:35 | Outpatient (CLI) | payer MEDICARE, SELFPAY ==
[2020-07-09 10:47] LABS: Bacteria 0 SEEN /hpf (None Seen); Mucous, Urine 0 SEEN /hpf (<or=2+); Red Blood Cells-Urine 0 SEEN /hpf (0-5); White Blood Cells 0 SEEN /hpf (0-5)
[2020-07-09 12:15] LABS: Color, Urine Yellow (Yellow); Glucose, Dipstick 1000 mg/dl (Normal); Ketone-Dipstick Negative (Negative); Leukocyte Esterase-Dipstick Negative /ul (Negative); Nitrite-Dipstick Negative (Negative); Occult Blood-Urine Negative /ul (Negative); Protein-Dipstick Negative (Negative); Urine Bilirubin Dipstick Negative (Negative); Urine Clarity Sl. Cloudy (Clear); Urine Urobilinogen Normal (Normal)
[2020-07-09 12:27] LABS: Squamous Epithelial Cells - UA 0-5 SEEN /hpf (5-10)
[2020-07-09 12:50] LABS: Creatinine, Urine (random) < 13.00 mg/dL (NO RANGE EST.); Protein, Urine (Random) < 6.0 mg/dL (<11.9)
[2020-07-09 12:53] LABS: Anion Gap 9 (5-15); BUN 24 mg/dL (7-18); BUN/Creat Ratio 20.9 RATIO (10-20); Calcium,Total 9.2 mg/dL (8.5-10.1); Chloride 100 mmol/L (98-107); Creatinine, Serum 1.15 mg/dL (0.55-1.02); EST Glomerular Filtration Rate 49 mL/min (>60); Est Glom Filt Rate - Afr Amer 59 mL/min (>60); Glucose 218 mg/dL (74-106); Phosphorus 3.7 mg/dL (2.5-4.9); Potassium 3.7 mmol/L (3.5-5.1); Sodium Level 134 mmol/L (136-145)
[2020-07-09 13:02] LABS: Vitamin D,25 Hydroxy 56.4 ng/mL
[2020-07-09 13:23] LABS: 24HR. UA Prot. Total Volume 2400 mL
[2020-07-09 13:28] LABS: Urine Protein (24 Hour) < 6.0 mg/dL (<11.9)
[2020-07-09 13:29] LABS: Creat.Clear Total Volume 2400 mL; Creatinine Clearance 45 ml/min (100-200); Creatinine Serum Creat 1.2 mg/dL (0.6-1.0); Creatinine Urine 31.1 mg/dL (NO RANGE EST.); EST Glomerular Filtration Rate 49 mL/min (>60); Est Glom Filt Rate - Afr Amer 59 mL/min (>60)
== END ==
PROVIDERS: PCP Family Medicine; Referring Provider Internal Medicine; Visit Provider Internal Medicine
DX: N18.30 Chronic kidney disease, stage 3 unspecified (principal); E55.9 Vitamin D deficiency, unspecified
CPT/HCPCS: 36415; 80048; 81001; 82306; 82570; 82575; 84100; 84156

== ENCOUNTER → 2020-07-16 09:14 | Outpatient (CLI) | payer MEDICARE, SELFPAY ==
[2019-08-01 09:58] VITALS: BMI 28.9
--- NOTE | 2020-07-16 09:21 | US_ITS ---
STUDY: RENAL ULTRASOUND - COMPLETE REASON FOR EXAM: Female, 74 years old. CKD3 TECHNIQUE: Ultrasound evaluation of the kidneys was performed with real-time and static telles-scale imaging. COMPARISON: Comparison is made with prior examination dated 02/03/2010. FINDINGS: RIGHT KIDNEY: Normal location of the right kidney, which is normal in size. The right kidney measures 9.6 cm x 4.1 cm x 4.1 cm. There is a normal cortex of the right kidney. The renal cortex measures 1.4 cm. There is no right renal mass or cyst. There are no right renal calculi. There is no right hydronephrosis. DISTAL RIGHT URETER: There is non-visualization of the distal right ureter. There is no demonstrated right ureterovesical junction calculus. There is a visualized right ureteral jet. LEFT KIDNEY: Normal location of the left kidney, which is normal in size. The left kidney measures 9 cm x 5.2 cm x 4.6 cm. There is a normal cortex of the left kidney. The renal cortex measures 1.4 cm. There is no left renal mass or cyst. There are no left renal calculi. There is no left hydronephrosis. DISTAL LEFT URETER: There is non-visualization of the distal left ureter. There is no demonstrated left ureterovesical junction calculus. There is a visualized left ureteral jet. BLADDER: The distended urinary bladder has a volume of 21 ml. There is a normal wall thickness of the distended urinary bladder. There is no demonstrated mass within the urinary bladder. There are no demonstrated bladder calculi. US/Kidney and Bladder IMPRESSION: Normal ultrasound of the kidneys and urinary bladder. Electronically Signed: Addi Azar MD at 10:31 EST , Service support ,
== END ==
PROVIDERS: PCP Family Medicine; Referring Provider Internal Medicine; Visit Provider Internal Medicine
DX: N18.30 Chronic kidney disease, stage 3 unspecified (principal)
CPT/HCPCS: 76770

== ENCOUNTER → 2020-08-23 08:48 | Outpatient (CLI) | payer MEDICARE, SELFPAY ==
[2020-08-23 10:24] LABS: Anion Gap 7 (5-15); BUN 21 mg/dL (7-18); BUN/Creat Ratio 21.2 RATIO (10-20); Calcium,Total 8.9 mg/dL (8.5-10.1); Chloride 105 mmol/L (98-107); Cholesterol 144 mg/dL (200); Creatinine, Serum 0.99 mg/dL (0.55-1.02); EST Glomerular Filtration Rate 58 mL/min (>60); Est Glom Filt Rate - Afr Amer 70 mL/min (>60); Glucose 133 mg/dL (74-106); High Density Lipoprotein 55 mg/dL; Potassium 3.4 mmol/L (3.5-5.1); Sodium Level 139 mmol/L (136-145); Triglycerides 88 mg/dL; Very Low Density Lipoprotein 18 mg/dL (5-40)
[2020-08-23 10:36] LABS: PTHIN 32.4 pg/mL (18.4-80.1)
[2020-08-23 10:48] LABS: Hepatitis C Antibody Non-Reactive (Nonreactive)
== END ==
PROVIDERS: PCP Family Medicine; Visit Provider Family Medicine
DX: E11.22 Type 2 diabetes mellitus with diabetic chronic kidney disease (principal); N18.9 Chronic kidney disease, unspecified; Z11.59 Encounter for screening for other viral diseases
CPT/HCPCS: 36415; 80048; 80061; 83970; 86803

== ENCOUNTER → 2021-01-11 10:49 | Outpatient (CLI) | payer MEDICARE, SELFPAY ==
--- NOTE | 2021-01-11 10:52 | BI_ITS ---
MAMMOGRAPHY - BILATERAL SCREENING REASON FOR EXAM: Female, 75 years old. Routine annual screening examination. PERTINENT HISTORY: TECHNIQUE: Digital bilateral breast bebo (3D mammographic acquisition) in the CC and MLO projections. 2-D mediolateral oblique (MLO) and craniocaudad (CC) views of both breasts were obtained. CAD: Full Field Digital Mammography with Computer Added Detection was performed. COMPARISON: Previous mammogram obtained on 11/21/2019 FINDINGS: Breast Composition: Fatty There are no dominant masses or suspicious calcifications. No other significant abnormalities are identified. BI/SCRN MAMM (CAD)W/BEBO BILAT IMPRESSION: Stable bilateral screening mammogram. Yearly follow-up mammogram recommended. (A) ASSESSMENT CATEGORY: BIRADS Category 1: Negative. A letter regarding these results will be sent to the patient by the facility within 30 days. Approximately 10% of breast cancers are not detected by mammography. A normal mammogram should not delay biopsy of a clinically suspicious abnormality. [id number] Electronically Signed: Sacha Galan DO at 13:49 EDT Tel , Service support ,
== END ==
PROVIDERS: PCP Family Medicine; Referring Provider Family Medicine; Visit Provider Family Medicine
DX: Z12.31 Encounter for screening mammogram for malignant neoplasm of breast (principal)
CPT/HCPCS: 77063; 77067

== ENCOUNTER 2021-06-20 13:38 | Outpatient (CLI) | payer MEDICARE, SELFPAY | END 2021-06-20 23:59 | disposition short-term general hospital (02) | LOC: MFPLAB 13:40 | PROVIDERS: PCP Family Medicine; Visit Provider Family Medicine | DX: R30.0 Dysuria (principal) | CPT/HCPCS: 87077; 87086; 87088; 87186 ==

== ENCOUNTER 2021-07-12 07:15 | Outpatient (CLI) | payer MEDICARE, SELFPAY ==
[2021-07-12 07:21] LABS: Mucous, Urine 0 SEEN /hpf (<or=2+)
[2021-07-12 10:04] LABS: Color, Urine Yellow (Yellow); Glucose, Dipstick 1000 mg/dl (Normal); Ketone-Dipstick Negative (Negative); Leukocyte Esterase-Dipstick 100 /ul (Negative); Nitrite-Dipstick Negative (Negative); Occult Blood-Urine 25 /ul (Negative); Protein-Dipstick Negative (Negative); Specific Gravity, Urine 1.015 (1.002-1.030); Urine Bilirubin Dipstick Negative (Negative); Urine Clarity Clear (Clear); Urine Urobilinogen Normal (Normal)
[2021-07-12 10:14] LABS: Protein, Urine (Random) 11.1 mg/dL (<11.9); Protein:Creat Ratio 139 mg/g CRE (0-200)
[2021-07-12 10:17] LABS: PTHIN 43.6 pg/mL (18.4-80.1)
[2021-07-12 10:19] LABS: Bacteria 1+ /hpf (None Seen); Red Blood Cells-Urine 0-5 SEEN /hpf (0-5); Squamous Epithelial Cells - UA 0-5 SEEN /hpf (5-10); White Blood Cells 10-25 SEEN /hpf (0-5)
[2021-07-12 10:20] LABS: Vitamin D,25 Hydroxy 48.3 ng/mL
[2021-07-12 10:25] LABS: Anion Gap 9 (5-15); BUN 16 mg/dL (7-18); BUN/Creat Ratio 15.7 RATIO (10-20); Calcium,Total 8.8 mg/dL (8.5-10.1); Chloride 97 mmol/L (98-107); Creatinine, Serum 1.02 mg/dL (0.55-1.02); EST Glomerular Filtration Rate 56 mL/min (>60); Est Glom Filt Rate - Afr Amer 68 mL/min (>60); Glucose 108 mg/dL (74-106); Phosphorus 3.5 mg/dL (2.5-4.9); Potassium 2.9 mmol/L (3.5-5.1); Sodium Level 132 mmol/L (136-145)
== END 2021-07-12 23:59 | disposition short-term general hospital (02) ==
LOC: MTLAB 07:17
PROVIDERS: PCP Family Medicine; Referring Provider Internal Medicine; Visit Provider Internal Medicine
DX: N18.31 Chronic kidney disease, stage 3a (principal); E55.9 Vitamin D deficiency, unspecified
CPT/HCPCS: 36415; 80048; 81001; 82306; 82570; 83970; 84100; 84156

== ENCOUNTER 2021-08-16 07:08 | Outpatient (CLI) | payer MEDICARE, SELFPAY ==
[2021-08-16 10:12] LABS: Hematocrit 40.1 % (37-47); Hemoglobin 13.5 g/dL (12.0-15.0); Mean Corp Hgb Conc 33.7 g/dL (32-36); Mean Corpuscular Hgb 30.1 pg (27.0-32.0); Mean Corpuscular Volume 89.5 fL (81-99); Platelet Count 227 K/mm3 (150-450); RBC Distribution Width CV 12.1 % (11.6-14.6); RBC Distribution Width SD 39.8 fl (35.1-43.9); Red Blood Count 4.48 M/mm3 (4.2-5.4); White Blood Count 3.1 K/mm3 (4.4-11.0)
[2021-08-16 10:26] LABS: Albumin, Serum 3.6 g/dL (3.2-5.0); BUN 19 mg/dL (7-18); BUN/Creat Ratio 20.7 RATIO (10-20); Calcium,Total 9.1 mg/dL (8.5-10.1); Chloride 99 mmol/L (98-107); Creatinine, Serum 0.92 mg/dL (0.55-1.02); EST Glomerular Filtration Rate 63 mL/min (>60); Est Glom Filt Rate - Afr Amer 76 mL/min (>60); Glucose 139 mg/dL (74-106); Phosphorus 3.5 mg/dL (2.5-4.9); Potassium 3.7 mmol/L (3.5-5.1); Protein, Urine (Random) 8.4 mg/dL (<11.9); Protein:Creat Ratio 268 mg/g CRE (0-200); Sodium Level 135 mmol/L (136-145)
[2021-08-16 10:31] LABS: PTHIN 35.2 pg/mL (18.4-80.1)
[2021-08-16 10:34] LABS: Vitamin D,25 Hydroxy 47.3 ng/mL
== END 2021-08-16 23:59 | disposition home or self-care (01) ==
LOC: MTLAB 07:09
PROVIDERS: PCP Family Medicine; Referring Provider Internal Medicine Nephrology; Visit Provider Internal Medicine Nephrology
DX: N18.31 Chronic kidney disease, stage 3a (principal); N25.81 Secondary hyperparathyroidism of renal origin; D63.1 Anemia in chronic kidney disease; E55.9 Vitamin D deficiency, unspecified
CPT/HCPCS: 36415; 80069; 82306; 82570; 83970; 84156; 85027

== ENCOUNTER → 2022-02-23 | Outpatient (CLI) | payer MEDICARE, SELFPAY ==
[2022-02-23 10:25] LABS: Anion Gap 9 (5-15); BUN 21 mg/dL (7-18); BUN/Creat Ratio 19.4 RATIO (10-20); Calcium,Total 8.7 mg/dL (8.5-10.1); Chloride 98 mmol/L (98-107); Cholesterol 127 mg/dL (200); Creatinine, Serum 1.08 mg/dL (0.55-1.02); EST Glomerular Filtration Rate 52 mL/min (>60); Est Glom Filt Rate - Afr Amer 63 mL/min (>60); Glucose 101 mg/dL (74-106); High Density Lipoprotein 54 mg/dL; Potassium 3.4 mmol/L (3.5-5.1); Sodium Level 133 mmol/L (136-145); Triglycerides 67 mg/dL; Very Low Density Lipoprotein 13 mg/dL (5-40)
== END | disposition home or self-care (01) ==
LOC: MFPLAB 08:26
PROVIDERS: PCP Family Medicine; Referring Provider Family Medicine; Visit Provider Family Medicine
DX: E11.65 Type 2 diabetes mellitus with hyperglycemia (principal)
CPT/HCPCS: 36415; 80048; 80061

== ENCOUNTER → 2022-03-13 | Outpatient (CLI) | payer MEDICARE, SELFPAY ==
--- NOTE | 2022-03-13 07:26 | BI_ITS ---
MAMMOGRAPHY - BILATERAL SCREENING REASON FOR EXAM: Female, 76 years old. Routine annual screening examination. PERTINENT HISTORY: Sister with breast cancer. TECHNIQUE: Digital bilateral breast bebo (3D mammographic acquisition) in the CC and MLO projections. 2-D mediolateral oblique (MLO) and craniocaudad (CC) views of both breasts were obtained. CAD: Full Field Digital Mammography with Computer Added Detection was performed. COMPARISON: Comparison is made with prior study 01/11/2021 and 11/21/2019. FINDINGS: Breast Composition: There are scattered areas of fibroglandular density. There are no dominant masses or suspicious calcifications. No other significant abnormalities are identified. There has been no significant change since the prior study. BI/SCRN MAMM (CAD)W/BEBO BILAT IMPRESSION: Stable bilateral screening mammogram. Yearly follow-up mammogram recommended. (A) ASSESSMENT CATEGORY: BIRADS Category 1: Negative. A letter regarding these results will be sent to the patient by the facility within 30 days. Approximately 10% of breast cancers are not detected by mammography. A normal mammogram should not delay biopsy of a clinically suspicious abnormality. [id number] Electronically Signed: Addi Azar MD at 9:24 EDT ,
== END | disposition home or self-care (01) ==
LOC: OPBI 07:23
PROVIDERS: PCP Family Medicine; Visit Provider Family Medicine
DX: Z12.31 Encounter for screening mammogram for malignant neoplasm of breast (principal); Z80.3 Family history of malignant neoplasm of breast
CPT/HCPCS: 77063; 77067

== ENCOUNTER → 2022-03-23 | Outpatient (CLI) | payer MEDICARE, SELFPAY ==
[2022-03-23 12:48] LABS: Anion Gap 9 (5-15); BUN 20 mg/dL (7-18); BUN/Creat Ratio 16.3 RATIO (10-20); Chloride 101 mmol/L (98-107); Creatinine, Serum 1.23 mg/dL (0.55-1.02); EST Glomerular Filtration Rate 45 mL/min (>60); Est Glom Filt Rate - Afr Amer 54 mL/min (>60); Glucose 237 mg/dL (74-106); Potassium 3.8 mmol/L (3.5-5.1); Sodium Level 135 mmol/L (136-145)
== END | disposition home or self-care (01) ==
LOC: MFPLAB 10:17
PROVIDERS: PCP Family Medicine; Referring Provider Family Medicine; Visit Provider Family Medicine
DX: E87.6 Hypokalemia (principal)
CPT/HCPCS: 36415; 80048

== ENCOUNTER → 2022-08-23 | Outpatient (CLI) | payer MEDICARE, SELFPAY ==
[2022-08-23 10:47] LABS: Anion Gap 10 (5-15); BUN 19 mg/dL (7-18); BUN/Creat Ratio 20.3 RATIO (10-20); Calcium,Total 9.1 mg/dL (8.5-10.1); Chloride 98 mmol/L (98-107); Creatinine, Serum 0.93 mg/dL (0.55-1.02); EST Glomerular Filtration Rate 62 mL/min (>60); Est Glom Filt Rate - Afr Amer 75 mL/min (>60); Glucose 113 mg/dL (74-106); Potassium 3.4 mmol/L (3.5-5.1); Sodium Level 135 mmol/L (136-145)
== END | disposition home or self-care (01) ==
LOC: MFPLAB 08:38
PROVIDERS: PCP Family Medicine; Referring Provider Family Medicine; Visit Provider Family Medicine
DX: I10 Essential (primary) hypertension (principal)
CPT/HCPCS: 36415; 80048

== ENCOUNTER → 2023-03-16 | Outpatient (CLI) | payer MEDICARE, SELFPAY ==
--- NOTE | 2023-03-16 08:44 | BI_ITS ---
MAMMOGRAPHY - BILATERAL SCREENING REASON FOR EXAM: Female, 77 years old. Routine annual screening examination. PERTINENT HISTORY: Sister with breast cancer. Palpable lump in the axillary region of the right breast. TECHNIQUE: Digital bilateral breast bebo (3D mammographic acquisition) in the CC and MLO projections. 2-D mediolateral oblique (MLO) and craniocaudad (CC) views of both breasts were obtained. CAD: Full Field Digital Mammography with Computer Added Detection was performed. COMPARISON: Comparison is made with prior study March 13, 2022 and January 11, 2021. FINDINGS: Breast Composition: The breasts are almost entirely fatty. There are no dominant masses or suspicious calcifications. No other significant abnormalities are identified. There has been no significant change since the prior study. BI/SCRN MAMM (CAD)W/BEBO BILAT IMPRESSION: Stable bilateral screening mammogram. Yearly follow-up mammogram recommended. (A) ASSESSMENT CATEGORY: BIRADS Category 1: Negative. A letter regarding these results will be sent to the patient by the facility within 30 days. Approximately 10% of breast cancers are not detected by mammography. A normal mammogram should not delay biopsy of a clinically suspicious abnormality. [id number] Electronically Signed: Addi Azar MD at 14:30 EDT ,
== END | disposition home or self-care (01) ==
LOC: OPBI 08:42
PROVIDERS: PCP Family Medicine; Referring Provider Family Medicine; Visit Provider Family Medicine
DX: Z12.31 Encounter for screening mammogram for malignant neoplasm of breast (principal); Z80.3 Family history of malignant neoplasm of breast
CPT/HCPCS: 77063; 77067

== ENCOUNTER → 2023-05-24 | Outpatient (CLI) | payer MEDICARE, SELFPAY ==
[2023-05-24 11:18] LABS: Anion Gap 7 (5-15); BUN 18 mg/dL (7-18); BUN/Creat Ratio 18.4 RATIO (10-20); Calcium,Total 9.2 mg/dL (8.5-10.1); Chloride 104 mmol/L (98-107); Cholesterol 132 mg/dL (200); Creatinine, Serum 0.98 mg/dL (0.55-1.02); EST Glomerular Filtration Rate 58 mL/min (>60); Est Glom Filt Rate - Afr Amer 71 mL/min (>60); Glucose 122 mg/dL (74-106); High Density Lipoprotein 48 mg/dL; Potassium 3.7 mmol/L (3.5-5.1); Sodium Level 136 mmol/L (136-145); Triglycerides 91 mg/dL; Very Low Density Lipoprotein 18 mg/dL (5-40)
[2023-05-24 11:38] LABS: Microalbumin,Random Urine 70.2 mg/L (NO RANGE EST.); Microalbumin:Creatinine Ratio 108.8 mg/g CRE (<30 mg/g CRE)
== END | disposition home or self-care (01) ==
LOC: MFPLAB 08:29
PROVIDERS: PCP Family Medicine; Visit Provider Family Medicine
DX: E11.9 Type 2 diabetes mellitus without complications (principal)
CPT/HCPCS: 36415; 80048; 80061; 82043; 82570

== ENCOUNTER → 2023-09-26 | Outpatient (CLI) | payer MEDICARE, SELFPAY ==
[2023-09-26 10:52] LABS: ALB/GLOB Ratio 1.1 RATIO (0.9-2.4); AST(SGOT) 19 U/L (15-37); Alanine Aminotransfer ALT/SGPT 22 U/L (13-56); Albumin, Serum 3.8 g/dL (3.2-5.0); Alkaline Phosphatase 49 U/L (45-117); Anion Gap 7 (5-15); BUN 19 mg/dL (7-18); BUN/Creat Ratio 16.8 RATIO (10-20); Calcium,Total 9.1 mg/dL (8.5-10.1); Chloride 101 mmol/L (98-107); Creatinine, Serum 1.13 mg/dL (0.55-1.02); EST Glomerular Filtration Rate 49 mL/min (>60); Est Glom Filt Rate - Afr Amer 60 mL/min (>60); Globulin 3.4 g/dL (2.2-4.2); Glucose 211 mg/dL (74-106); Potassium 4.1 mmol/L (3.5-5.1); Protein, Total 7.2 g/dL (6.4-8.2); Sodium Level 134 mmol/L (136-145)
== END | disposition home or self-care (01) ==
LOC: MFPLAB 08:43
PROVIDERS: PCP Family Medicine; Visit Provider Family Medicine
DX: E11.65 Type 2 diabetes mellitus with hyperglycemia (principal)
CPT/HCPCS: 36415; 80053

== ENCOUNTER 2023-11-15 16:05 | Emergency (ER) | payer MEDICARE, SELFPAY ==
[2023-11-15 16:05] VITALS: BP 168/59; PULSE 64; RESP 14; TEMP 36.1; O2SAT 100
--- NOTE | 2023-11-15 16:50 | RAD_ITS ---
INDICATION: fall EXAMINATION/TECHNIQUE: X-RAY - LEFT XR Hand Min 3 Views 4 VIEWS COMPARISON: No relevant prior comparison study available FINDINGS: SOFT TISSUES: No soft tissue swelling or gas. No radiopaque foreign body. BONES/JOINTS: 1. There is normal bony alignment, degenerative changes are present at the trapeziometacarpal articulation with joint space narrowing endplate sclerosis and mild erosions. 2. Remaining bony elements have normal alignment with the exception of a fracture at the base of the proximal 5th phalanx. Fracture plane extends into the joint surface and there is impaction and mild angulation. No other fracture noted. RAD/Hand Min 3 Views IMPRESSION: 1. Impacted angulated fracture involving the base of the 5th proximal phalanx with fracture plane extending into the articular surface of the MCP. 2. No other fracture noted. 3. Extensive degenerative change at the base of the thumb at the trapeziometacarpal articulation. Electronically Signed: Feroz Gutierres MD at 17:24 EDT ,
--- NOTE | 2023-11-15 16:50 | RAD_ITS ---
INDICATION: fall EXAMINATION/TECHNIQUE: X-RAY - LEFT XR Ankle Min 3 Views 3 VIEWS COMPARISON: Imaging of the LEFT foot on same date FINDINGS: SOFT TISSUES: No soft tissue swelling or gas. No radiopaque foreign body. BONES/JOINTS: There is a minimally distracted avulsion fracture involving the base of the 5th metatarsal. No other fractures noted. Joint space maintained. Incidental note of a plantar spur. RAD/Ankle min 3 Views IMPRESSION: 1. Avulsion fracture of base of 5th metatarsal. 2. No other fracture or joint space abnormality involving the LEFT ankle. 3. Plantar spur Electronically Signed: Feroz Gutierres MD at 17:30 EDT ,
--- NOTE | 2023-11-15 16:50 | RAD_ITS ---
INDICATION: fall EXAMINATION/TECHNIQUE: X-RAY - LEFT XR Foot Min 3 Views 3 VIEWS COMPARISON: No relevant prior comparison study available FINDINGS: SOFT TISSUES: No soft tissue swelling or gas. No radiopaque foreign body. BONES/JOINTS: There is normal bony alignment with the exception of avulsion deformity/fracture at the base of the 5th metatarsal. There is chronic deformity of the head and neck of the 2nd metatarsal. Mild degenerative changes involving the interphalangeal joints. No other evidence of acute bony or joint space abnormality. There is a plantar spur. RAD/Foot min 3 Views IMPRESSION: 1. Avulsion fracture at the base of the 5th metatarsal with mild distraction. No angulation. 2. No other fractures or acute bony or joint space abnormality noted. 3. Moderate degenerative changes involving the head and neck of the 2nd metatarsal Electronically Signed: Feroz Gutierres MD at 17:28 EDT ,
--- NOTE | 2023-11-15 16:51 | EX.ED.DYSGE1 ---
HPI <ISAC Aviles - Last Filed: 11/15/23 18:00> History of Present Illness Chief Complaint: Fall Narrative Narrative: Patient is a 78-year-old female with history of diabetes, hypertension hyperlipidemia presents to the emergency department after mechanical fall injuring her left foot and ankle as well as left hand. Patient that she was sitting, when she went to get up to the window, her left leg was asleep. She rolled her left ankle, injuring her foot and her ankle. Patient also landed on her left hand. Denies any head or neck injury. Denies any LOC. PFS <ISAC Aviles - Last Filed: 11/15/23 18:00> [facility] Medical History (Updated 11/15/23 @ 18:00 by ISAC Aviles) Essential hypertension Abnormal stress test Chest discomfort Abnormal myocardial perfusion study Ventricular tachyarrhythmia CAD in [place] artery Diabetes mellitus Atherosclerotic heart disease of [place] coronary artery without angina pectoris Home Medications ?Medication ?Instructions ?Recorded ?Last Taken ?Type aspirin 81 mg tablet,delayed 81 mg PO QDAY 05/15/17 08/14/18 History release (Adult Low Dose Aspirin) losartan 50 mg tablet 50 mg PO QDAY 05/15/17 08/14/18 History metformin 1,000 mg tablet 1,000 mg PO BID 90 days #180 tabs 07/15/18 Unknown History nitroglycerin 0.4 mg sublingual 0.4 mg sublingual Q5-15M PRN chest 08/12/18 Unknown Rx tablet pain #25 tabs pravastatin 40 mg tablet 40 mg PO DAILY 90 days #90 tabs 08/26/18 Unknown History cholecalciferol (vitamin D3) 125 125 mcg PO DAILY 08/01/19 Unknown History mcg (5,000 unit) capsule dapagliflozin propanediol 5 mg 5 mg PO DAILY 08/01/19 Unknown History tablet (Farxiga) esomeprazole magnesium 20 mg 20 mg PO DAILY 08/01/19 Unknown History capsule,delayed release (Nexium) multivitamin 1 tab PO DAILY 08/01/19 Unknown History hrhubje-wdxxqaxsxdkza-sszcxxuj 250 1 tab PO DAILY PRN 01/23/22 Unknown History mg-250 mg-65 mg tablet (Excedrin Extra Strength) metoprolol tartrate 25 mg tablet 25 mg PO DAILY 01/23/22 Unknown History potassium chloride 20 mEq 20 meq PO DAILY 01/23/22 Unknown History tablet,extended release insulin glargine 100 unit/mL (3 18 unit subcut DAILY 03/16/23 Unknown History mL) subcutaneous pen (Basaglar KwikPen U-100 Insulin) Allergy/AdvReac Type Severity Reaction Status Date / Time exenatide (From Byetta) AdvReac Severe hives, Verified 03/16/23 11:03 nausea, vomiting codeine AdvReac Intermediate Vomiting Verified 03/16/23 11:03 liraglutide (From Victoza) AdvReac Intermediate Nausea,vomi Verified 03/16/23 11:03 ting Family History Mother CAD (coronary artery disease) Hx CABG Cancer Lung cancer Grandmother CVA (cerebral vascular accident) Grandfather CVA (cerebral vascular accident) Brother Heart disease CAD (coronary artery disease) Hx CABG Myocardial infarction Cancer pancreas, stomach Sister CAD (coronary artery disease) Cancer breast Son , age 53 Cancer lung Surgical History History of bladder repair surgery History of partial colectomy History of fusion of cervical spine History of carpal tunnel surgery of right wrist Hx of cholecystectomy History of hysterectomy History of appendectomy Social History Smoking Status: Never smoker alcohol intake: never substance use type: does not use caffeine: Yes Type: coffee Number of servings: 1 what type of physical activity do you participate in: none seatbelt use: always do you feel safe at home: Yes ROS <Nitin Morataya NP-C - Last Filed: 11/15/23 18:00> ROS ED ROS Narrative Constitutional: Negative for fever, chills, weight loss, weakness Eyes: Negative for vision loss, vision change, double vision ENT: Negative for any sore throat, ear pain, congestion Cardiovascular: Negative for any chest pain, tightness, palpitations Respiratory: Negative for any cough, sputum production, hemoptysis, dyspnea, dyspnea on exertion, orthopnea Gastrointestinal: Negative for any abdominal pain, nausea, vomiting, diarrhea, constipation, blood in stool, blood in vomit : Negative for any urinary frequency, dysuria, retention, blood in urine Muscle skeletal: Negative for any neck pain, back pain. Positive for left foot, left ankle pain. Positive for left hand pain Neurological: Negative for any headache, syncope, dizziness Skin: Negative for any rashes, itching, abrasions, lacerations Psychiatric: Negative for any depression, anxiety, stress, suicidal ideation, homicidal ideation Hematologic: Negative for any excessive bruising, easy bleeding EXAM <ISAC Aviles - Last Filed: 11/15/23 18:00> Physical Exam Narrative Exam Narrative: Vital signs reviewed. HEET: Head normocephalic atraumatic, TMs clear bilaterally. Posterior pharynx is clear, moist mucous membranes. Nares clear bilaterally. Neck: Supple with no lymphadenopathy or tenderness. No signs of meningismus. Cardiac: Regular rate and rhythm no murmurs gallops or rubs, equal peripheral pulses bilaterally. Respiratory: Lungs clear to auscultation bilaterally. No chest tenderness. Abdomen: Soft, nontender, nondistended. No abdominal bruit or pulsatile masses. No hepatosplenomegaly Extremities: Patient has pain to the left lateral malleolus, as well as dorsal foot on the lateral aspect. Significant pain along the fifth metatarsal. Patient does have bruising to the palmar aspect of the fourth and fifth digits. Active full range of motion of all extremities. Neuro: Cranial nerves II through XII intact, no focal neurological deficits. Skin: Clean dry and intact with no rash, purpura, petechiae, vesicles or pustules. Backs/flank: No CVA tenderness, no midline spinal tenderness, no deformity. Psych: Normal mood and affect. No SI, HI or acute psychosis. Const Vital Signs: 11/15/23 16:05 11/15/23 16:05 Temperature 97 F L Temperature Source Temporal Pulse Rate 64 Respiratory Rate 14 Respiratory Effort Normal Non-Labored Respiratory Depth Normal Respiratory Pattern Normal Blood Pressure 168/59 H Blood Pressure Mean 95 Pulse Ox 100 Oxygen Delivery Method Room Air Positive well nourished and well developed General Appearance ED: well developed <Dr. Ronny Hopkins DO - Last Filed: 11/15/23 18:16> Physical Exam Const Vital Signs: 11/15/23 16:05 11/15/23 16:05 Temperature 97 F L Temperature Source Temporal Pulse Rate 64 Respiratory Rate 14 Respiratory Effort Normal Non-Labored Respiratory Depth Normal Respiratory Pattern Normal Blood Pressure 168/59 H Blood Pressure Mean 95 Pulse Ox 100 Oxygen Delivery Method Room Air [facility] <ISAC Aviles - Last Filed: 11/15/23 18:00> [facility] Radiography Diagnostic Testing: Clinical Impression(s) from Imaging Studies Ankle X-Ray 11/15/23 16:50 IMPRESSION: 1. Avulsion fracture of base of 5th metatarsal. 2. No other fracture or joint space abnormality involving the LEFT ankle. 3. Plantar spur Electronically Signed: Feroz Gutierres MD at 17:30 EDT , Foot X-Ray 11/15/23 16:50 IMPRESSION: 1. Avulsion fracture at the base of the 5th metatarsal with mild distraction. No angulation. 2. No other fractures or acute bony or joint space abnormality noted. 3. Moderate degenerative changes involving the head and neck of the 2nd metatarsal Electronically Signed: Feroz Gutierres MD at 17:28 EDT , Hand X-Ray 11/15/23 16:50 IMPRESSION: 1. Impacted angulated fracture involving the base of the 5th proximal phalanx with fracture plane extending into the articular surface of the MCP. 2. No other fracture noted. 3. Extensive degenerative change at the base of the thumb at the trapeziometacarpal articulation. Electronically Signed: Feroz Gutierres MD at 17:24 EDT , Treatment and Re-Evaluation :: Differential diagnosis includes however is not limited to: Left foot contusion, metatarsal fracture, lateral malleolus fracture, hand fracture, contusions Patient appears to be in no obvious distress vital signs are stable. Patient presents to the emergency department for complaints of a mechanical fall injuring her left foot and ankle as well as her left hand. Patient received Tylenol here. Patient received x-rays of the left foot ankle as well as left hand. All radiologic examinations were read, reviewed by the emergency department attending. From these reads, a plan of care will be put in place. Patient's x-rays of the left ankle shows avulsion fracture of the base of the fifth metatarsal. No other fractures or joint space abnormality along the left ankle. Patient's x-ray of the left hand shows an impacted angulated fracture involving the base of the fifth proximal phalanx with fracture plane extending into the articular surface of the MCP. No other fracture noted. Spoke with orthopod, patient will follow-up with him, he will she will also be instructed to follow-up with the [facility] in case she might need surgery. Patient be placed in a boot for her left foot. She given pain medicine for home. I will place the patient in a gutter like splint for her left fifth finger. Patient tolerated well, patient was offered pain medicine for home however she refused. Patient will ice and elevate. She will follow-up with both orthopedics locally, I will also provide her with names from the [facility] hand center. She is happy with the plan of care, stable for discharge. <Dr. Ronny Hopkins, DO - Last Filed: 11/15/23 18:16> MDM Radiography Diagnostic Testing: Clinical Impression(s) from Imaging Studies Ankle X-Ray 11/15/23 16:50 IMPRESSION: 1. Avulsion fracture of base of 5th metatarsal. 2. No other fracture or joint space abnormality involving the LEFT ankle. 3. Plantar spur Electronically Signed: Feroz Gutierres MD at 17:30 EDT , Foot X-Ray 11/15/23 16:50 IMPRESSION: 1. Avulsion fracture at the base of the 5th metatarsal with mild distraction. No angulation. 2. No other fractures or acute bony or joint space abnormality noted. 3. Moderate degenerative changes involving the head and neck of the 2nd metatarsal Electronically Signed: Feroz Gutierres MD at 17:28 EDT , Hand X-Ray 11/15/23 16:50 IMPRESSION: 1. Impacted angulated fracture involving the base of the 5th proximal phalanx with fracture plane extending into the articular surface of the MCP. 2. No other fracture noted. 3. Extensive degenerative change at the base of the thumb at the trapeziometacarpal articulation. Electronically Signed: Feroz Gutierres MD at 17:24 EDT , Treatment and Re-Evaluation :: Differential diagnosis includes however is not limited to: Left foot contusion, metatarsal fracture, lateral malleolus fracture, hand fracture, contusions Patient appears to be in no obvious distress vital signs are stable. Patient presents to the emergency department for complaints of a mechanical fall injuring her left foot and ankle as well as her left hand. Patient received Tylenol here. Patient received x-rays of the left foot ankle as well as left hand. All radiologic examinations were read, reviewed by the emergency department attending. From these reads, a plan of care will be put in place. Patient's x-rays of the left ankle shows avulsion fracture of the base of the fifth metatarsal. No other fractures or joint space abnormality along the left ankle. Patient's x-ray of the left hand shows an impacted angulated fracture involving the base of the fifth proximal phalanx with fracture plane extending into the articular surface of the MCP. No other fracture noted. Spoke with orthopod, patient will follow-up with him, he will she will also be instructed to follow-up with the [facility] in case she might need surgery. Patient be placed in a boot for her left foot. She given pain medicine for home. I will place the patient in a gutter like splint for her left fifth finger. Patient tolerated well, patient was offered pain medicine for home however she refused. Patient will ice and elevate. She will follow-up with both orthopedics locally, I will also provide her with names from the [facility] hand center. She is happy with the plan of care, stable for discharge. This patient was seen with a PA/PROGRAM DIRECTOR Individually assessed they patient including history and physical. I have reviewed everything on the chart that is available and agree with the documentation provided by the PA/PROGRAM DIRECTOR including discussion about the assessment, treatment plan, discussion, and return precautions. Patient presenting with left hand pain left foot pain after mechanical fall. On my interpretation she stated fracture to the left hand with an impacted angulated fracture of the base of the proximal fifth phalanx. There is also intra-articular extension. There is also a left foot avulsion fracture at the base of the fifth metatarsal. Discussed with orthopedics and will place patient in a walking boot and splint her hand for follow-up. Discharge Plan Triage Chief Complaint: Fall ED Midlevel Provider: Nitin Morataya ED Provider: Ronny Hopkins Dx/Rx/DC Orders Clinical Impression: Fall, Foot fracture, Finger fracture Instructions: ED Fracture, Foot, ED Fracture, Upper Extremity Prescriptions: No Action losartan 50 mg tablet 50 mg PO QDAY aspirin [Adult Low Dose Aspirin] 81 mg tablet,delayed release (DR/EC) 81 mg PO QDAY metformin 1,000 mg tablet 1,000 mg PO BID 90 Days Qty: 180 Patient Comments: pravastatin 40 mg tablet 40 mg PO DAILY 90 Days Qty: 90 Patient Comments: nitroglycerin 0.4 mg tablet, sublingual 0.4 mg SUBLINGUAL Q5-15M PRN (Reason: chest pain) Qty: 25 3RF Rx Instructions: until response; do not exceed 3 doses per episode Farxiga 5 mg tablet 5 mg PO DAILY esomeprazole magnesium [Nexium] 20 mg capsule,delayed release(DR/EC) 20 mg PO DAILY cholecalciferol (vitamin D3) 125 mcg (5,000 unit) capsule 125 mcg PO DAILY multivitamin Tablet 1 tab PO DAILY Basaglar KwikPen U-100 Insulin 100 unit/mL (3 mL) insulin pen 18 unit SC DAILY metoprolol tartrate 25 mg tablet 25 mg PO DAILY potassium chloride 20 mEq tablet extended release 20 meq PO DAILY Excedrin Extra Strength 250-250-65 mg tablet 1 tab PO DAILY PRN Primary Care Provider: Nitin Blair Referrals: Sacha Irene MD [Non-Staff] - Nitin Blair MD [Primary Care Provider] - Stanislav Garcia MD [Med Staff - Active Staff] - Activity Restrictions/Additional Instructions: You will follow-up with orthopedics locally, I will also provide you with [facility] hand surgeons. Keep elevated. Ice is much as you can. Continue take Tylenol. Print Language: Barb[place] Disposition Disposition: Home, Self Care
[2023-11-15] MEDS: Acetaminophen 500 MG Tablet 1000 MG PO (17:18)
--- NOTE | 2023-11-15 18:04 | CON.PCM.OR_ITS ---
HPI Consult Data Date of Consult: 11/15/23 HPI Narrative HPI Narrative: LAW STAHL, is a 78 F who presents for a fall 5th digit fracture and 5th MT base fracture. [facility] Medical History (Updated 11/15/23 @ 18:00 by ISAC Aviles) Essential hypertension Abnormal stress test Chest discomfort Abnormal myocardial perfusion study Ventricular tachyarrhythmia CAD in [place] artery Diabetes mellitus Atherosclerotic heart disease of [place] coronary artery without angina pectoris Home Medications ?Medication ?Instructions ?Recorded ?Last Taken ?Type aspirin 81 mg tablet,delayed 81 mg PO QDAY 05/15/17 08/14/18 History release (Adult Low Dose Aspirin) losartan 50 mg tablet 50 mg PO QDAY 05/15/17 08/14/18 History metformin 1,000 mg tablet 1,000 mg PO BID 90 days #180 tabs 07/15/18 Unknown History nitroglycerin 0.4 mg sublingual 0.4 mg sublingual Q5-15M PRN chest 08/12/18 Unknown Rx tablet pain #25 tabs pravastatin 40 mg tablet 40 mg PO DAILY 90 days #90 tabs 08/26/18 Unknown History cholecalciferol (vitamin D3) 125 125 mcg PO DAILY 08/01/19 Unknown History mcg (5,000 unit) capsule dapagliflozin propanediol 5 mg 5 mg PO DAILY 08/01/19 Unknown History tablet (Farxiga) esomeprazole magnesium 20 mg 20 mg PO DAILY 08/01/19 Unknown History capsule,delayed release (Nexium) multivitamin 1 tab PO DAILY 08/01/19 Unknown History ogxjgvi-xppzkirpebeod-mwzuajcg 250 1 tab PO DAILY PRN 01/23/22 Unknown History mg-250 mg-65 mg tablet (Excedrin Extra Strength) metoprolol tartrate 25 mg tablet 25 mg PO DAILY 01/23/22 Unknown History potassium chloride 20 mEq 20 meq PO DAILY 01/23/22 Unknown History tablet,extended release insulin glargine 100 unit/mL (3 18 unit subcut DAILY 03/16/23 Unknown History mL) subcutaneous pen (Basaglar KwikPen U-100 Insulin) Allergy/AdvReac Type Severity Reaction Status Date / Time exenatide (From Byetta) AdvReac Severe hives, Verified 03/16/23 11:03 nausea, vomiting codeine AdvReac Intermediate Vomiting Verified 03/16/23 11:03 liraglutide (From Victoza) AdvReac Intermediate Nausea,vomi Verified 03/16/23 11:03 ting Family History (Reviewed 03/16/23 @ 11:09 by Shawna Henriquez APPLICATIONS INSTRUCTOR, APPLICATIONS INSTRUCTOR-C) Mother CAD (coronary artery disease) Hx CABG Cancer Lung cancer Grandmother CVA (cerebral vascular accident) Grandfather CVA (cerebral vascular accident) Brother Heart disease CAD (coronary artery disease) Hx CABG Myocardial infarction Cancer pancreas, stomach Sister CAD (coronary artery disease) Cancer breast Son , age 53 Cancer lung Surgical History (Reviewed 03/16/23 @ 11:08 by Shawna Henriquez APPLICATIONS INSTRUCTOR, APPLICATIONS INSTRUCTOR-C) History of bladder repair surgery History of partial colectomy History of fusion of cervical spine History of carpal tunnel surgery of right wrist Hx of cholecystectomy History of hysterectomy History of appendectomy Social History (Reviewed 03/16/23 @ 11:09 by Shawna Henriquez APPLICATIONS INSTRUCTOR, APPLICATIONS INSTRUCTOR-C) Smoking Status: Never smoker alcohol intake: never substance use type: does not use caffeine: Yes Type: coffee Number of servings: 1 what type of physical activity do you participate in: none seatbelt use: always do you feel safe at home: Yes Vital Signs Vital Signs Vital Signs: 11/15/23 16:05 11/15/23 16:05 Temperature 97 F L Temperature Source Temporal Pulse Rate 64 Respiratory Rate 14 Respiratory Effort Normal Non-Labored Respiratory Depth Normal Respiratory Pattern Normal Blood Pressure 168/59 H Blood Pressure Mean 95 Pulse Ox 100 Oxygen Delivery Method Room Air Imaging Radiology Impression Ankle X-Ray 11/15/23 16:50 IMPRESSION: 1. Avulsion fracture of base of 5th metatarsal. 2. No other fracture or joint space abnormality involving the LEFT ankle. 3. Plantar spur Electronically Signed: Feroz Gutierres MD at 17:30 EDT , Foot X-Ray 11/15/23 16:50 IMPRESSION: 1. Avulsion fracture at the base of the 5th metatarsal with mild distraction. No angulation. 2. No other fractures or acute bony or joint space abnormality noted. 3. Moderate degenerative changes involving the head and neck of the 2nd metatarsal Electronically Signed: Feroz Gutierres MD at 17:28 EDT , Hand X-Ray 11/15/23 16:50 IMPRESSION: 1. Impacted angulated fracture involving the base of the 5th proximal phalanx with fracture plane extending into the articular surface of the MCP. 2. No other fracture noted. 3. Extensive degenerative change at the base of the thumb at the trapeziometacarpal articulation. Electronically Signed: Feroz Gutierres MD at 17:24 EDT , Assessment & Plan Assessment/Plan (1) Finger fracture: PLAN: Recommend splinting the finger / rusty taping. NVI per the ED doc. Will FU in clinic next week. Will likely need ORIF d/t intra articular involvement. (2) Foot fracture: PLAN: Recommend orthosis boot, NWB, crutches and FU in the office next week. ED doc concurs with the plan. no further concerns. No need to see the patient in ED.
[2023-11-15 18:05] VITALS: BP 150/62; PULSE 77; RESP 12; O2SAT 98
[2023-11-15 18:30] VITALS: BP 150/62; PULSE 77; RESP 12; TEMP 36.7; O2SAT 98
== END 2023-11-15 18:31 | disposition home or self-care (01) ==
PROVIDERS: Emergency Provider Student in an Organized Health Care Education/Training Program; PCP Family Medicine; Visit Provider Student in an Organized Health Care Education/Training Program
DX: S92.902A Unspecified fracture of left foot, initial encounter for closed fracture (principal); E11.9 Type 2 diabetes mellitus without complications; S62.617A Displaced fracture of proximal phalanx of left little finger, initial encounter for closed fracture; I25.10 Atherosclerotic heart disease of native coronary artery without angina pectoris; W19.XXXA Unspecified fall, initial encounter
CPT/HCPCS: 73130; 73610; 73630; 99283

== ENCOUNTER → 2023-12-28 | Outpatient (CLI) | payer MEDICARE, SELFPAY ==
[2023-12-28 10:42] LABS: Anion Gap 9 (5-15); BUN 17 mg/dL (7-18); BUN/Creat Ratio 17.9 RATIO (10-20); Chloride 98 mmol/L (98-107); Cholesterol 111 mg/dL (200); Creatinine, Serum 0.95 mg/dL (0.55-1.02); EST Glomerular Filtration Rate 60 mL/min (>60); Est Glom Filt Rate - Afr Amer 73 mL/min (>60); Glucose 97 mg/dL (74-106); High Density Lipoprotein 57 mg/dL; Potassium 3.6 mmol/L (3.5-5.1); Sodium Level 133 mmol/L (136-145); Triglycerides 54 mg/dL; Very Low Density Lipoprotein 11 mg/dL (5-40)
== END | disposition home or self-care (01) ==
LOC: MFPLAB 08:32
PROVIDERS: PCP Family Medicine; Visit Provider Family Medicine
DX: E11.22 Type 2 diabetes mellitus with diabetic chronic kidney disease (principal)
CPT/HCPCS: 36415; 80048; 80061

== ENCOUNTER → 2024-01-15 | Outpatient (CLI) | payer MEDICARE, SELFPAY ==
--- NOTE | 2024-01-15 11:04 | BD_ITS ---
STUDY: DUAL ENERGY X-RAY ABSORPTIOMETRY / DXA REASON FOR EXAM: Female, 78 years old. [id number]. TECHNIQUE: Bone Mineral Density (BMD) measurements of lumbar spine and bilateral hips were obtained. COMPARISON: Comparison is made with prior study August 20, 2018. FINDINGS: Lumbar Spine (L1-L4): g/cm2 (1.085) / T-score (0.6) / Z-score (3.2) Findings are suggestive of normal bone density with a low fracture risk. Left Femur Total: g/cm2 (0.836) / T-score (-0.9) / Z-score (1.2) Left Femoral Neck: g/cm2 (0.702) / T-score (-1.3) / Z-score (0.9) Right Femur Total: g/cm2 (0.815) / T-score (-1.0) / Z-score (1.0) Right Femoral Neck: g/cm2 (0.728) / T-score (-1.1) / Z-score (1.2) The T-Scores on the most recent prior examination were: Lumbar Spine (L1-L4): There has been worsening of bone density since the previous examination. Left Femur Total: which represents a worsening of 3.7%. Right Femur Total: which represents a worsening of 8.4%. BD/Dexa Bone Density Study IMPRESSION: The patient is considered osteopenic as outlined below according to World Teddy Organization (WHO) criteria with a low fracture risk. There has been worsening of bone density since the previous examination. Reference Information: The T-score is the number of standard deviations above or below the standard which is normal for young adults at their peak bone mineral density. The World Health Organization (WHO) interprets the T-scores as follows: Above -1 Normal bone density Between -1 and -2.5 Osteopenia Equal to / or below -2.5 Osteoporosis As a practical clinical guideline, osteopenia may be graded as follows: Mild -1 through -1.5 Moderate -1.6 through -2.0 Severe -2.1 through -2.4 The Z-score is the number of standard deviations above or below age-matched controls. A Z-score of less than -1.5 would be considered abnormal. References: 1. NIH Osteoporosis and Related Bone Diseases www osteo.org 2. International Society for Clinical Densitometry www iscd.org 3. National Osteoporosis Foundation www nof.org Electronically Signed: Addi Azar MD at 12:18 EDT ,
== END | disposition home or self-care (01) ==
LOC: OPBD 11:00
PROVIDERS: PCP Family Medicine; Referring Provider Family Medicine; Visit Provider Family Medicine
DX: N95.9 Unspecified menopausal and perimenopausal disorder (principal)
CPT/HCPCS: 77080

== ENCOUNTER → 2024-05-12 | Outpatient (CLI) | payer MEDICARE, SELFPAY ==
--- NOTE | 2024-05-12 08:16 | BI_ITS ---
MAMMOGRAPHY - BILATERAL SCREENING REASON FOR EXAM: Female, 78 years old. Routine annual screening examination. PERTINENT HISTORY: Sister with breast cancer. TECHNIQUE: Digital bilateral breast bebo (3D mammographic acquisition) in the CC and MLO projections. 2-D mediolateral oblique (MLO) and craniocaudad (CC) views of both breasts were obtained. CAD: Full Field Digital Mammography with Computer Added Detection was performed. COMPARISON: Comparison is made with prior study March 16, 2023 and March 13, 2022. FINDINGS: Breast Composition: There are scattered areas of fibroglandular density. There are no dominant masses or suspicious calcifications. Since prior study, there has been an increase in the breast tissue seen in both breasts. This may be related to patient''s medication intake. Clinical correlation recommended. No other significant abnormalities are identified. BI/SCRN MAMM (CAD)W/BEBO BILAT IMPRESSION: Increased glandular tissue as compared to prior study. This may be related to patient''s medication intake. Clinical correlation recommended. Yearly follow-up mammogram recommended. (A) ASSESSMENT CATEGORY: BIRADS Category 2: Benign. A letter regarding these results will be sent to the patient by the facility within 30 days. Approximately 10% of breast cancers are not detected by mammography. A normal mammogram should not delay biopsy of a clinically suspicious abnormality. [id number] Electronically Signed: Addi Azar MD at 10:13 EST ,
== END | disposition home or self-care (01) ==
LOC: OPBI 08:15
PROVIDERS: PCP Family Medicine; Referring Provider Family Medicine; Visit Provider Family Medicine
DX: Z12.31 Encounter for screening mammogram for malignant neoplasm of breast (principal)
CPT/HCPCS: 77063; 77067

== ENCOUNTER → 2024-06-30 | Outpatient (CLI) | payer MEDICARE, SELFPAY ==
[2024-06-30 10:41] LABS: Protein, Urine (Random) 22.7 mg/dL (<11.9); Protein:Creat Ratio 299 mg/g CRE (0-200)
[2024-06-30 10:55] LABS: AST(SGOT) 13 U/L (15-37); Alanine Aminotransfer ALT/SGPT 16 U/L (13-56); Albumin, Serum 3.6 g/dL (3.2-5.0); Alkaline Phosphatase 47 U/L (45-117); Anion Gap 5 (5-15); BUN 19 mg/dL (7-18); BUN/Creat Ratio 20.9 RATIO (10-20); Calcium,Total 9.2 mg/dL (8.5-10.1); Chloride 103 mmol/L (98-107); Cholesterol 130 mg/dL (200); Creatinine, Serum 0.91 mg/dL (0.55-1.02); EST Glomerular Filtration Rate 63 mL/min (>60); Est Glom Filt Rate - Afr Amer 77 mL/min (>60); Globulin 3.7 g/dL (2.2-4.2); Glucose 102 mg/dL (74-106); High Density Lipoprotein 59 mg/dL; Potassium 3.5 mmol/L (3.5-5.1); Protein, Total 7.3 g/dL (6.4-8.2); Sodium Level 136 mmol/L (136-145); Triglycerides 73 mg/dL; Very Low Density Lipoprotein 15 mg/dL (5-40)
== END | disposition home or self-care (01) ==
LOC: MTLAB 08:26
PROVIDERS: PCP Family Medicine; Referring Provider Family Medicine; Visit Provider Family Medicine
DX: E11.65 Type 2 diabetes mellitus with hyperglycemia (principal)
CPT/HCPCS: 36415; 80053; 80061; 82570; 84156

== ENCOUNTER → 2024-12-25 | Outpatient (CLI) | payer MEDICARE, SELFPAY ==
[2024-12-25 11:00] LABS: Creatinine, Urine (random) 59.30 mg/dL (28.00-217.00); Microalbumin,Random Urine 13.6 mg/L (<20 mg/L)
== END | disposition home or self-care (01) ==
LOC: MTLAB 08:59
PROVIDERS: PCP Family Medicine; Referring Provider Family Medicine; Visit Provider Family Medicine
DX: I10 Essential (primary) hypertension (principal)
CPT/HCPCS: 36415; 82043; 82570

== ENCOUNTER → 2024-12-29 | Outpatient (CLI) | payer MEDICARE, SELFPAY ==
[2024-12-29 11:24] LABS: Creatinine, Urine (random) 60.40 mg/dL (28.00-217.00); Microalbumin,Random Urine 17.1 mg/L (<20 mg/L)
[2024-12-29 12:08] LABS: Anion Gap 13 (5-15); BUN 16 mg/dL (4-19); BUN/Creat Ratio 16.5 RATIO (10-20); Calcium,Total 9.2 mg/dL (7.6-11.0); Carbon Dioxide 23.4 mmol/L (21.0-32.0); Chloride 99 mmol/L (98-108); Cholesterol 133 mg/dL (<=200); Glucose 97 mg/dL (70-99); Low Density Lipoprotein Calc. 61 mg/dL; Potassium 4.0 mmol/L (3.3-5.1); Triglycerides 75 mg/dL; Very Low Density Lipoprotein 15 mg/dL (5-40); cholesterol:hdl ratio screen 2.33
== END | disposition home or self-care (01) ==
LOC: MFPLAB 08:46
PROVIDERS: PCP Family Medicine; Referring Provider Family Medicine; Visit Provider Family Medicine
DX: E11.65 Type 2 diabetes mellitus with hyperglycemia (principal)
CPT/HCPCS: 36415; 80048; 80061; 82043; 82570

== ENCOUNTER → 2025-01-02 | Outpatient (CLI) | payer MEDICARE, SELFPAY ==
--- NOTE | 2025-01-02 08:32 | EKG12_ITS ---
Test Reason : ROUTINE Blood Pressure : */* mmHG Vent. Rate : 66 BPM Atrial Rate : 80 BPM P-R Int : 170 ms QRS Dur : 90 ms QT Int : 422 ms P-R-T Axes : 44 58 71 degrees QTcB Int : 442 ms Sinus rhythm with marked sinus arrhythmia Otherwise normal ECG Confirmed by JEANETTE RHODES, BETY ([id number]), supervising editor news reel EMERSON SINGH ([id number]) on 01/05/2025 9:02:14 AM Referred By: Marisela Bernardo Confirmed By: BETY REID MD
== END | disposition home or self-care (01) ==
PROVIDERS: PCP Family Medicine; Referring Provider Physician Assistant Medical; Visit Provider Physician Assistant Medical
DX: R42 Dizziness and giddiness (principal)
CPT/HCPCS: 93005; 93225; 93226

== ENCOUNTER → 2025-01-23 | Outpatient (CLI) | payer MEDICARE, SELFPAY ==
--- OUTSIDE RECORDS SUMMARY | 2025-01-23 06:35 | XMS RPT_ITS | CCD ---
Author Organization [facility] CliniSyal Care Team Providers Care Piggyback Clerk Name Role Phone Lazara Bedolla Unavailable Unavailable Johnnie, Dr. Taveras Primary Care Provider Johnnie, Dr. Taveras Referring Provider Dr. Nitin Rodriguez Attending Provider Johnnie, Dr. Taveras Primary Care Provider Johnnie, Dr. Taveras Referring Provider [phone] Martinez BECKETT, ISAC Matos Attending Provider Dr. Nitin Blair MD Primary Care Provider Dr. Nitin Blair MD Attending Provider Johnnie RHODES, Dr. Taveras Referring Provider Marisela Staton Attending Provider Marisela Staton Referring Provider Dr. Theo Hernandez MD Attending Provider Nitin Blair Primary Care Unavailable Blair, Nitin Attending Unavailable Blair, Nitin Referring Unavailable Blair, Nitin Primary Care Unavailable Blair, Nitin Attending Unavailable Blair, Nitin Referring Unavailable Blair, Nitin Primary Care Unavailable Marisela Staton Attending Unavail able Nitin Blair Referring Unavailable Blair, Nitin Primary Care Unavailable Shawna Henriquez NP Attending Unavailable Nitin Blair Referring Unavailable Blair, Nitin Primary Care Unavailable Johnnie, Nitin Referring Unavailable Theo Hernandez Attending Unavailable Marisela Staton Referring Unavail able Theo Hernandez Attending Unavailable Johnnie, Nitin Primary Care Unavailable Blair, Nitin Primary Care Unavailable Blair, Nitin Attending Unavailable Blair, Nitin Referring Unavailable Blair, Nitin Primary Care Unavailable Blair, Nitin Attending Unavailable Blair, Nitin Referring Unavailable Blair, Nitin Primary Care Unavailable Blair, Nitin Attending Unavailable Marisela Staton Consulting Unavail able Nitin Blair Referring Unavailable Nitin Blair Primary Care Unavailable Marisela Staton Consulting Unavail able Marisela Staton Attending Unavail able Marisela Staton Referring Unavail able Allergies Allergy Classification Reported Allergen(s) Allergy Type Date of Onset Reaction(s) Facility (12 sources) Codeine; Translations: [codeine] Drug Allergy 3 vomiting [facility] Work Phone: (1 source) exenatide Drug Allergy 3 hives, nausea, vomitting [facility] Work Phone: (1 source) liraglutide Drug Allergy 3 nausea & vomitting [facility] Work Phone: (10 sources) exenatide Drug Allergy 2 hives, nausea, vomiting [facility] (10 sources) liraglutide Drug Allergy 2 Nausea,vomiting [facility] (1 source) exenatide Drug Allergy 5 [facility] (1 source) liraglutide Drug Allergy 5 [facility] Medications Current Medications Medication Drug Class(es) Dates Sig (Normalized) Sig (Original) acetaminophen 250 mg / aspirin 250 mg / caffeine 65 mg oral tablet (10 sources) Platelet Aggregation Inhibitor, Nonsteroidal Anti-inflammatory Drug, Central Nervous System Stimulant, Methylxanthine Start: 01-23-2022 Aspirin-Acetaminoph en-Caffeine (Excedrin Extra Strength) 250-250-65 mg tablet Active 1 {tbl} PO DAILY as needed January 23, 2022 12:00am calcium acetate (4 sources) Start: 03-18-2024 calcium acetate Active PO daily March 18, 2024 12:00am cholecalciferol 0.125 mg oral capsule (20 sources) Vitamin D Start: 08-01-2019 take 1 capsule by mouth once daily Cholecalciferol (Vitamin D3) 125 mcg (5,000 unit) capsule Active 125 ug PO DAILY August 01, 2019 1:00am Start: 08-26-2018 End: 08-01-2019 take 1 capsule by mouth once daily Cholecalciferol (Vitamin D3) 2,000 unit capsule Discontinued 2000 U PO DAILY August 26, 2018 12:00am August 01, 2019 11:00am dapagliflozin 5 mg oral tablet (10 sources) Sodium-Glucose Cotransporter 2 Inhibitor Start: 08-01-2019 take 1 tablet by mouth once daily Dapagliflozin Propanediol (Farxiga) 5 mg tablet Active 5 mg PO DAILY August 01, 2019 1:00am esomeprazole 20 mg delayed release oral capsule (10 sources) Proton Pump Inhibitor Start: 08-01-2019 take 1 capsule by mouth once daily Esomeprazole Magnesium (Nexium) 20 mg capsule,delayed release(DR/EC) Active 20 mg PO DAILY August 01, 2019 1:00am 3 ml insulin glargine 100 unt/ml pen injector (20 sources) Insulin Analog Start: 03-18-2024 Insulin Glargine (Basaglar Kwikpen U-100 Insulin) 100 unit/mL (3 mL) insulin pen Active 15 U SC DAILY March 18, 2024 8:35am Start: 03-16-2023 End: 03-18-2024 Insulin Glargine (Basaglar K wikpen U-100 Insulin) 100 unit/mL (3 mL) insulin pen Discontinued 18 U SC DAILY March 16, 2023 11:03am March 18, 2024 8:38am Start: 01-26-2021 End: 03-16-2023 Insulin Glargine (Basaglar K wikpen U-100 Insulin) 100 unit/mL (3 mL) insulin pen Discontinued 16 U SC DAILY January 26, 2021 10:29am March 16, 2023 11:03am Start: 08-01-2019 End: 01-26-2021 Insulin Glargine (Basaglar K wikpen U-100 Insulin) 100 unit/mL (3 mL) insulin pen Discontinued 14 U SC DAILY August 01, 2019 1:00am January 26, 2021 10:30am Start: 07-15-2018 End: 08-01-2019 Insulin Glargine (Lantus U-1 00 Insulin) 100 unit/mL solution Discontinued 11 U SC daily July 15, 2018 10:07am August 01, 2019 10:59am Start: 07-03-2017 End: 07-15-2018 Insulin Glargine (Lantus U-1 00 Insulin) 100 unit/mL solution Discontinued 0 SC daily July 03, 2017 1:00am July 15, 2018 10:08am As directed SC QDAY Start: 07-03-2017 End: 07-15-2018 Insulin Glargine (Lantus U-1 00 Insulin) 100 unit/mL solution Discontinued 0 SC daily July 03, 2017 1:00am July 15, 2018 10:08am As directed SC QDAY Start: 10-21-2014 LANTUS 100 UNI T/ML SOLN as directed INSULIN GLARGINE [id number] Marisela Bernardo PA-C losartan potassium 100 mg oral tablet (20 sources) Angiotensin 2 Receptor Ethel Start: 12-30-2024 take 1 tablet by mouth once daily Losartan 100 mg tablet Active 100 mg PO daily December 30, 2024 12:00am Start: 11-20-2023 End: 12-30-2024 take 2 tablets by mouth once daily Losartan 50 mg tablet Discontinued 100 mg PO daily November 20, 2023 9:58am December 30, 2024 12:59pm Start: 05-15-2017 End: 11-20-2023 take 1 tablet by mouth once daily Losartan 50 mg tablet Discontinued 50 mg PO daily May 15, 2017 1:00am November 20, 2023 9:59am Start: 10-14-2013 take 1 tablet by mariana th once daily LOSARTAN POTASSIUM 25 MG TABS One tablet by mouth daily LOSARTAN POTASSIUM [id number] Marisela Bernardo PA-C Start: 10-14-2013 take 1 tablet by mariana th once daily LOSARTAN POTASSIUM 50 MG TABS One tablet by mouth daily LOSARTAN POTASSIUM [id number] Marisela Bernardo PA-C metFORMIN hydrochloride 1000 mg oral tablet (20 sources) Biguanide Start: 05-15-2017 End: 07-15-2018 take 1 tablet by mouth twice daily Metformin 1,000 mg tablet Active 1000 mg PO TWICE A DAY 180 90 0 July 15, 2018 10:07am Start: 05-15-2017 End: 07-15-2018 Metformin 1,000 mg tablet Discontinued PO 90 0 May 15, 2017 1:00am July 15, 2018 10:08am Start: 01-09-2013 take 1 tablet by mariana th twice daily METFORMIN HCL 1000 MG TABS One tablet by mouth twice daily METFORMIN HCL [id number] Morena Fair RN 24 hr metoprolol succinate 25 mg extended release oral tablet (20 sources) beta-Adrenergic Ethel Start: 12-30-2024 take 1 tablet by mouth once daily Metoprolol Succinate 25 mg tablet extended release 24 hr Active 25 mg PO daily December 30, 2024 12:00am Start: 01-23-2022 End: 12-30-2024 take 1 tablet by mouth once daily Metoprolol Tartrate 25 mg tablet Discontinued 25 mg PO DAILY January 23, 2022 11:40am December 30, 2024 1:00pm Start: 06-12-2019 End: 01-23-2022 take 1 tablet by mouth twice daily Metoprolol Tartrate 25 mg tablet Discontinued 25 mg PO TWICE A DAY 180 3 June 12, 2019 2:52pm January 23, 2022 11:42am Start: 05-15-2017 End: 05-17-2019 take 1 tablet by mouth twice daily Metoprolol Tartrate 25 mg tablet Discontinued 25 mg PO TWICE A DAY 180 90 3 May 22, 2018 5:56pm May 16, 2019 1:00am May 17, 2019 1:09am Start: 05-15-2017 End: 05-15-2017 Metoprolol Tartrate 25 mg ta blet Discontinued PO 90 0 May 15, 2017 1:00am May 15, 2017 4:32pm Start: 05-15-2017 End: 05-15-2017 Metoprolol Tartrate Disconti nued PO 90 May 15, 2017 1:00am May 15, 2017 4:32pm Start: 01-09-2013 take 1 tablet by mariana th twice daily METOPROLOL TARTRATE 25 MG TABS One tablet by mouth twice daily METOPROLOL TARTRATE [id number] Janice Fried ECHOCARDIOGRAPHY TECH Multivitamin preparation (6 sources) Start: 08-01-2019 take 1 tablet by mouth once daily Multivitamin Active 1 TABLET PO DAILY August 01, 2019 12:00am Start: 08-01-2019 take 1 tablet by mariana th once daily Multivitamin Active 1 TABLET PO DAILY August 01, 2019 1:00am potassium chloride 20 meq extended release oral tablet (10 sources) Start: 01-23-2022 take 1 tablet by mouth once daily Potassium Chloride 20 mEq tablet extended release Active 20 meq PO DAILY January 23, 2022 12:00am pravastatin sodium 40 mg oral tablet (20 sources) HMG-CoA Reductase Inhibitor Start: 08-26-2018 take 1 tablet by mouth once daily Pravastatin 40 mg tablet Active 40 mg PO DAILY 90 90 0 August 26, 2018 10:30am Start: 05-15-2017 End: 08-26-2018 Pravastatin 40 mg tablet Discontinued 1 {tbl} PO EVERY OTHER DAY 90 0 May 15, 2017 1:00am August 26, 2018 10:32am Start: 01-09-2013 take 1 tablet by mariana th at bedtime PRAVASTATIN SODIUM 40 MG TABS One tablet by mouth at bedtime. PRAVASTATIN SODIUM [id number] Eileen Aguirre RN Completed/Discontinued Medications Medication Drug Class(es) Dates Sig (Normalized) Sig (Original) aspirin 81 mg delayed release oral tablet (12 sources) Platelet Aggregation Inhibitor, Nonsteroidal Anti-inflammatory Drug Start: 05-15-2017 End: 03-18-2024 Aspirin (Adult Low Dose Aspirin) 81 mg tablet,delayed release (DR/EC) Discontinued 81 mg PO daily May 15, 2017 1:00am March 18, 2024 8:34am Start: 01-09-2013 take 1 tablet by mariana th once daily ASPIRIN 81 MG CHEW One tablet by mouth daily ASPIRIN [id number] Nitin Rodriguez MD Start: 01-09-2013 take 1 tablet by mariana th once daily ASPIRIN EC 81 MG TBEC One tablet by mouth daily ASPIRIN [id number] Marisela Smith RN calcium carbonate 1500 mg / cholecalciferol 200 unt oral tablet (2 sources) Vitamin D Start: 01-09-2013 End: 04-22-2014 take 1 tablet by mouth once daily CALCIUM + D 600-200 MG-UNIT TABS One tablet by mouth daily CALCIUM CARBONATE-VITAMIN D [id number] Nitin Rodriguez MD canagliflozin 100 mg oral tablet (11 sources) Sodium-Glucose Cotransporter 2 Inhibitor Start: 07-03-2017 End: 08-01-2019 take 1 tablet by mouth once daily Canagliflozin (Invokana) 100 mg tablet Discontinued 100 mg PO daily July 03, 2017 1:00am August 01, 2019 11:00am Start: 04-11-2013 take 1 tablet by mariana th once daily INVOKANA 100 MG TABS One tablet by mouth daily CANAGLIFLOZIN [id number] Marisela Bernardo PA-C cephalexin 500 mg oral capsule (10 sources) Cephalosporin Antibacterial Start: 10-13-2017 End: 07-15-2018 take 1 capsule by mouth every twelve hours Cephalexin (Keflex) 500 mg capsule Discontinued 500 mg PO Q12H 14 0 October 13, 2017 12:00am July 15, 2018 10:06am cetirizine hydrochloride 10 mg oral tablet (2 sources) Histamine-1 Receptor Antagonist Start: 01-09-2013 End: 04-22-2014 take 1 tablet by mouth once daily ZYRTEC ALLERGY 10 MG TABS One tablet by mouth daily CETIRIZINE HCL [id number] Nitin Rodriguez MD clopidogrel 75 mg oral tablet (20 sources) P2Y12 Platelet Inhibitor Start: 08-07-2018 End: 08-14-2018 take 1 tablet by mouth once daily Clopidogrel 75 mg tablet Discontinued 75 mg PO DAILY August 07, 2018 10:28am August 12, 2018 11:02am empagliflozin 10 mg oral tablet (1 source) Sodium-Glucose Cotransporter 2 Inhibitor Start: 04-11-2013 take 1 tablet by mouth once daily JARDIANCE 10 MG TABS One tablet by mouth daily EMPAGLIFLOZIN [id number] Nitin Rodriguez MD glipiZIDE er 5 mg 24 hr extended release oral tablet (11 sources) Sulfonylurea Start: 07-15-2018 End: 01-26-2021 take 1 tablet by mouth once daily Glipizide 5 mg tablet extended release 24hr Discontinued 5 mg PO DAILY July 15, 2018 1:00am January 26, 2021 10:30am Start: 01-09-2013 take 1 tablet by mariana th once daily GLIPIZIDE 5 MG TABS One tablet by mouth daily GLIPIZIDE [id number] Marisela Bernardo PA-C glyBURIDE 5 mg oral tablet (11 sources) Sulfonylurea Start: 05-15-2017 End: 07-15-2018 Glyburide 5 mg tablet Discontinued PO 90 0 May 15, 2017 1:00am July 15, 2018 10:06am Start: 05-15-2017 End: 07-15-2018 Glyburide Discontinued PO 90 May 15, 2017 1:00am July 15, 2018 10:06am Start: 01-09-2013 take 1 tablet by mariana th twice daily GLYBURIDE 5 MG TABS One tablet by mouth twice daily GLYBURIDE [id number] Eileen Aguirre RN lisinopril 10 mg oral tablet (2 sources) Angiotensin Converting Enzyme Inhibitor Start: 01-09-2013 End: 10-23-2016 take 1 tablet by mouth once daily LISINOPRIL 10 MG TABS One tablet by mouth daily LISINOPRIL [id number] Eileen gAuirre RN MULTIPLE VITAMIN (2 sources) Start: 01-09-2013 End: 04-26-2016 take 1 tablet by mouth once daily MULTIVITAMINS TABS One tablet by mouth daily MULTIPLE VITAMIN [id number] Nitin Rodriguez MD Start: 01-09-2013 take 1 tablet by mariana once daily MULTIVITAMINS TABS One tablet by mouth daily MULTIPLE VITAMIN [id number] Nitin Rodriguez MD Multivitamin tablet (4 sources) Start: 08-01-2019 End: 12-30-2024 Multivitamin tablet Discontinued 1 {tbl} PO DAILY August 01, 2019 1:00am December 30, 2024 1:00pm nitroglycerin 0.4 mg sublingual tablet (10 sources) Nitrate Vasodilator Start: 08-12-2018 End: 11-20-2023 Nitroglycerin 0.4 mg tablet, sublingual Discontinued 0.4 mg SL every 5 to 15 minutes as needed for chest pain 02 09August 12, 2018 1:00am November 20, 2023 9:58am until response; do not exceed 3 doses per episode Start: 08-12-2018 Nitroglycerin Active 0.4 MG SL every 5 to 15 minutes August 12, 2018 1:00am until response; do not exceed 3 doses per episode omeprazole 20 mg delayed release oral tablet (20 sources) Proton Pump Inhibitor Start: 08-14-2018 End: 08-01-2019 Omeprazole Magnesium (Prilosec Otc) 20 mg tablet,delayed release (DR/EC) Discontinued 40 mg PO daily August 14, 2018 1:02pm August 01, 2019 11:00am Start: 05-15-2017 End: 08-14-2018 take 1 tablet by mouth once daily Omeprazole Magnesium (Prilosec Otc) 20 mg tablet,delayed release (DR/EC) Discontinued 20 mg PO daily May 15, 2017 1:00am August 14, 2018 1:03pm Start: 01-09-2013 take 1 tablet by mariana th once daily PRILOSEC OTC 20 MG TBEC One tablet by mouth daily OMEPRAZOLE MAGNESIUM [id number] Nitin Rodriguez MD SITagliptin 100 mg oral tablet (11 sources) Dipeptidyl Peptidase 4 Inhibitor Start: 05-15-2017 End: 08-01-2017 Sitagliptin Phosphate 100 mg tablet Discontinued PO 30 0 May 15, 2017 1:00am August 01, 2017 12:38pm Start: 05-15-2017 End: 08-01-2017 Sitagliptin Phosphate Discon tinued PO 30 May 15, 2017 1:00am August 01, 2017 12:38pm Start: 04-11-2013 take 1 tablet by mariana th once daily JANUVIA 100 MG TABS One tablet by mouth daily SITAGLIPTIN PHOSPHATE [id number] Nitin Rodriguez MD valsartan 160 mg oral tablet (2 sources) Angiotensin 2 Receptor Ethel Start: 01-09-2013 End: 10-14-2013 take 1 tablet by mouth once daily DIOVAN 160 MG TABS One tablet by mouth daily VALSARTAN [id number] Marisela Bernardo PA-C Problems Active Problems Problem Classification Problem Date Documented Date Episodic/Chronic Cardiac dysrhythmias (20 sources) Ventricular tachycardia; Translations: [Ventricular tachycardia] Onset: 3 01-09-2013 Chronic Cardiac dysrhythmias (1 source) Palpitations; Translations: [Palpitations] Onset: 5 Episodic Conditions associated with dizziness or vertigo (12 sources) Dizziness; Translations: [Dizziness and giddiness] Onset: 3 01-09-2013 Episodic Coronary atherosclerosis and other heart disease (20 sources) Atherosclerotic heart disease of [place] coronary artery without angina pectoris; Translations: [Coronary arteriosclerosis] Onset: 3 04-19-2016 Chronic Diabetes mellitus with complications (1 source) Type 2 diabetes mellitus with hyperglycemia; Translations: [Type 2 diabetes mellitus with hyperglycemia] Onset: 5 Chronic Diabetes mellitus without complication (12 sources) Diabetes mellitus; Translations: [Type 2 diabetes mellitus without complications] Onset: 3 10-21-2014 Chronic Disorders of lipid metabolism (19 sources) Hyperlipidemia; Translations: [Mixed hyperlipidemia] Onset: 3 01-09-2013 Chronic E Codes: Fall (4 sources) Fall; Translations: [Unspecified fall, initial encounter] 11-23-2023 Episodic Essential hypertension (20 sources) Hypertensive disorder; Translations: [Essential hypertension] Onset: 3 01-09-2013 Chronic Fracture of lower limb (8 sources) Displaced fracture of fifth metatarsal bone, left foot, initial encounter for closed fracture; Translations: [Fracture of fifth metatarsal bone of left foot] 11-20-2023 Episodic Fracture of upper limb (8 sources) Fracture of phalanx of finger; Translations: [Fracture of unspecified phalanx of unspecified finger, initial encounter for closed fracture] 11-23-2023 Episodic Nonspecific chest pain (20 sources) Chest discomfort; Translations: [Other chest pain] Onset: 3 01-09-2013 Episodic Other aftercare (6 sources) Patient encounter status; Translations: [Other care home (current) drug therapy] 07-25-2017 Episodic Other aftercare (4 sources) Long-term current use of drug therapy; Translations: [Other termite treater (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) drug therapy] 07-25-2017 Episodic Other lower respiratory disease (2 sources) Other forms of dyspnea; Translations: [Other forms of dyspnea] Onset: 5 Episodic Other nutritional; endocrine; and metabolic disorders (1 source) Body mass index 25-29 - overweight; Translations: [Overweight] Onset: 3 11-11-2015 Chronic Other screening for suspected conditions (not mental disorders or infectious disease) (1 source) Abnormal findings on diagnostic imaging of other specified body structures; Translations: [Abnormal findings on diagnostic imaging of other specified body structures] Onset: 5 Chronic Other screening for suspected conditions (not mental disorders or infectious disease) (20 sources) Electrocardiogram abnormal; Translations: [Cardiovascular stress test abnormal] Onset: 3 01-09-2013 Episodic Unclassified (2 sources) Long-term drug therapy; Translations: [Other termite treater (current) drug therapy] Onset: 5 11-11-2015 Past or Other Problems Problem Classification Problem Date Documented Da te Episodic/Chronic Other nutritional; endocrine; and metabolic disorders (1 source) Body mass index (BMI) 26.0-26.9, adult; Translations: [Body mass index (BMI) 26.0-26.9, adult] Onset: 04-11-2013 04-11-2013 Episodic Residual codes; unclassified (2 sources) Family history of ischemic heart disease and other diseases of the circulatory system; Translations: [Family history of ischemic heart disease and other diseases of the circulatory system] 04-22-2014 Episodic Residual codes; unclassified (1 source) Family history of stroke; Translations: [Family history of stroke] 10-21-2014 Episodic Unclassified (2 sources) Finding of body mass index; Translations: [Body mass index (BMI) 25.0-25.9, adult] Onset: 04-11-2013 04-22-2014 Results Test Name Value Interpretation Reference Range Facility Electrocardiogram reportOrde red By: Theo Hernandez on 01-05-2025 EKG study [facility] [address] [place] [id number] 12 Lead EKG 01/02/25 0831 MR#: [id number] Acct: [id number] Name: LAW STAHL Rep #:[id number] : 1945 79 From: Thoe Hernandez MD Attending Dr: Marisela Bernardo PA Status: REG CLI Ordering Dr: Nitin Blair MD Date: Location: [facility] Sex: F C Admitted: Test Reason : ROUTINE Blood Pressure : */* mmHG Vent. Rate : 66 BPM Atrial Rate : 80 BPM P-R Int : 170 ms QRS Dur : 90 ms QT Int : 422 ms P-R-T Axes : 44 58 71 degrees QTcB Int : 442 ms Sinus rhythm with marked sinus arrhythmia Otherwise normal ECG Confirmed by JEANETTE RHODES, THEO ([id number]), newspaper editor EMERSON SINGH ([id number]) on 01/05/2025 9:02:14 AM Referred By: Marisela Bernardo Confirmed By: THEO HERNANDEZ MD 01/05/25901 Date _ Theo Hernandez MD CC: Dr. Nitin Blair MD; NBA Brink ~ Signed [facility] Work Phone: 12 Lead EKGon 01-02-2025 12 Lead EKG [facility] [address] [place] [address] 12 Lead EKG 01/02/25 0831 MR#: [id number] Acct: [id number] Name: LAW STAHL Rep #: [id number] : 1945 79 From: Theo Hernandez MD Attending Dr: NBA Brink Status: REG CLI Ordering Dr: Nitin Blair MD Date: 01/02/25 Location: [facility] Sex: F C Admitted: Test Reason : ROUTINE Blood Pressure : */* mmHG Vent. Rate : 66 BPM Atrial Rate : 80 BPM P-R Int : 170 ms QRS Dur : 90 ms QT Int : 422 ms P-R-T Axes : 44 58 71 degrees QTcB Int : 442 ms Sinus rhythm with marked sinus arrhythmia Otherwise normal ECG Confirmed by JEANETTE RHODES, THEO ([id number]), newspaper editor EMERSON SINGH ([id number]) on 01/05/2025 9:02:14 AM Referred By: Marisela Bernardo Confirmed By: THEO HERNANDEZ MD 01/05/25901 Date Theo Hernandez MD CC: Dr. Nitin Blair MD; NBA Brink Signed Normal [facility] Cardiology Visit Reporton Cardiology Visit Report [facility] [address] [place] [address] OFFICE VISIT Date of Service: 12/30/24 MR#: [id number] Acct: [id number] Name: LAW STAHL Rep #: [id number] : 1945 Provider: NBA Butler Age/Sex: 79/F Location: [facility] [place] Status: Signed HPI HPI History of Present Illness Details: This is a 79-year-old white female with a history of underlying coronary artery calcification and nonobstructive CAD, nonsustained wide-complex tachycardia, hyperlipidemia, and hypertension. Pt notes that she was in to see her PCP yesterday and noted that she had some irregular heart beats on her exam. She did have an EKG, I do not have this available. She does note that she has been more fatigued. She has also notes some dizziness and has had vertigo in the past. She does not have any worsening SOB. She does not have any chest pain. She is not aware of any palpitations. Bps have been higher. She notes at home it has been normal. Intake Vital Signs 03/18/24 08:33 12/30/24 12:51 12/30/24 13:03 Height 5 ft 4 in 5 ft 4 in Weight: 145 lb BMI 24.9 BP 169/79 H 171/67 H Blood Pressure Location Lt brachial Rt brachial Position Sitting Sitting Respiration 16 Pulse 71 71 Pulse Source NIBP NIBP Intake Visit Reasons: SEE NOTES IN MAILBOX Ditch Cleaner Required: No Is patient in pain?: No Allergies exenatide (From By[place]) Adverse Reaction (Severe, Verified 12/30/24 12:59) hives, nausea, vomiting codeine Adverse Reaction (Intermediate, Verified 12/30/24 12:59) Vomiting liraglutide (From Victoza) Adverse Reaction (Intermediate, Verified 12/30/24 12:59) Nausea,vomiting Medications ???Medication ???Instructions ???Recorded ???Confirmed ???Type metformin 1,000 mg tablet 1,000 mg PO BID 90 days #180 tabs 07/15/18 12/30/24 History pravastatin 40 mg tablet 40 mg PO DAILY 90 days #90 tabs 12/30/24 History cholecalciferol (vitamin D3) 125 125 mcg PO DAILY 08/01/19 12/30/24 History mcg (5,000 unit) capsule dapagliflozin propanediol 5 mg 5 mg PO DAILY 08/01/19 12/30/24 Hi story tablet (Farxiga) esomeprazole magnesium 20 mg 20 mg PO DAILY 08/01/19 12/30/24 H istory capsule,delayed release (Nexium) aspirin-acetaminophe n-caffeine 250 1 tab PO DAILY PRN 01/23/2212/10 History mg-250 mg-65 mg tablet (Excedrin Extra Strength) potassium chloride 20 mEq 20 meq PO DAILY 01/23/22 12/30/24 History tablet,extended release calcium acetate PO QDAY 03/18/24 12/30/24 History insulin glargine 100 unit/mL (3 15 unit subcut DAILY 03/18/2412/10 History mL) subcutaneous pen (Basaglar KwikPen U-100 Insulin) losartan 100 mg tablet 100 mg PO QDAY 12/30/24 12/30/24 H istory metoprolol succinate 25 mg 25 mg PO QDAY 12/30/24 12/30/24 Hi story tablet,extended release 24 hr Ejection fraction %: 65 Have you fallen in the past year?: No PFSH Medical History Fracture of proximal phalanx of left little finger Fracture of fifth metatarsal bone of left foot Essential hypertension Abnormal stress test Chest discomfort Abnormal myocardial perfusion study Ventricular tachyarrhythmia CAD in [place] artery Diabetes mellitus Atherosclerotic heart disease of [place] coronary artery without angina pectoris Surgical History History of bladder repair surgery History of partial colectomy History of fusion of cervical spine History of carpal tunnel surgery of right wrist Hx of cholecystectomy History of hysterectomy History of appendectomy Family History Mother CAD (coronary artery disease) Hx CABG Cancer Lung cancer Grandmother CVA (cerebral vascular accident) Grandfather CVA (cerebral vascular accident) Brother Heart disease CAD (coronary artery disease) Hx CABG Myocardial infarction Cancer pancreas, stomach Sister CAD (coronary artery disease) Cancer breast Son , age 53 Cancer lung Social History Smoking Status: Never smoker alcohol intake: never substance use type: does not use caffeine: Yes Type: coffee Number of servings: 1 what type of physical activity do you participate in: none seatbelt use: always do you feel safe at home: Yes ROS Const Const: Positive for fatigue (More tired recently); Negative for weakness Eyes Eyes: Negative for change in vision ENT ENT: Positive for dizziness; Negative for balance problems Cardio Chest Pain: No Palpitations: No Edema: Bilateral (Occasionally) Resp Respiratory: Negative for SOB with activity, SOB at rest or SOB orthopnea SOB lying down GI G (more content not included)... Normal [facility] Anion gap in Serum or Plasma Ordered By: Nitin Blair on 12-29-2024 Anion gap [Moles/Vol] 13 mmol/L 10-23 [facility] BUN/creatinine ratioOrdered By: Nitin Blair on 12-29-2024 Urea nitrogen/Creatinine [Mass ratio] 16.5 mg/mg 03-30 [facility] Basic Metabolic Profile (BMP )on 12-29-2024 BUN/CRE 16.5 RATIO Normal 03-30 [facility] Comment on above: Performed By: #### L 502.0250, L500.4100, L500.2500 #### [facility] [address] [place], [address] Calcium [Mass/Vol] 9.2 mg/dL Normal 7.6-11.0 [facility] Comment on above: Performed By: #### L 502.0250, L500.4100, L500.2500 #### [facility] [address] [place], [address] Chloride [Moles/Vol] 99 mmol/L Normal 98-108 [facility] Comment on above: Performed By: #### L 502.0250, L500.4100, L500.2500 #### [facility] [address] [place], [address] CO2 [Moles/Vol] 23.4 mmol/L Normal 21.0-32.0 [facility] Comment on above: Performed By: #### L 502.0250, L500.4100, L500.2500 #### [facility] [address] [place], [address] Creatinine [Mass/Vol] 0.99 mg/dL Normal 0.70-1.20 [facility] Comment on above: Performed By: #### L 502.0250, L500.4100, L500.2500 #### [facility] [address] [place], [address] GAP 13 Normal 5-15 [facility] Comment on above: Performed By: #### L 502.0250, L500.4100, L500.2500 #### [facility] [address] [place], [address] GFR/1.73 sq M.predicted among non-blacks MDRD (S/P/Bld) [Vol rate/Area] 58 mL/min/{1.73_m2} Low >60 [facility] Comment on above: Result Comment: mL/m in/1.73m2 CKD-EPI Creatinine Equation (2020) Performed By: #### L 502.0250, L500.4100, L500.2500 #### [facility] [address] [place], [address] Glucose [Mass/Vol] 97 mg/dL Normal 70-99 [facility] Comment on above: Performed By: #### L 502.0250, L500.4100, L500.2500 #### [facility] [address] [place], [address] Potassium [Moles/Vol] 4.0 mmol/L Normal 3.3-5.1 [facility] Comment on above: Performed By: #### L 502.0250, L500.4100, L500.2500 #### [facility] [address] [place], [address] Sodium [Moles/Vol] 136 mmol/L Normal 133-145 [facility] Comment on above: Performed By: #### L 502.0250, L500.4100, L500.2500 #### [facility] [address] [place], [place], [address] Urea nitrogen [Mass/Vol] 16 mg/dL Normal 4-19 [facility] Comment on above: Performed By: #### L 502.0250, L500.4100, L500.2500 #### [facility] [address] [place], [address] Calculated very low density lipoprotein (VLDL) cholesterol measurementOrdered By: Nitin Blair on 12-29-2024 Calculated very low density lipoprotein (VLDL) cholesterol measurement 15 mg/dL 5-40 [facility] Carbon dioxide, total [Moles /volume] in Central venous bloodOrdered By: Nitin Blair on 12-29-2024 CO2 [Moles/Vol] 23.4 mmol/L 21.0-32.0 [facility] Chloride assayOrdered By: Nba Blair on 12-29-2024 Chloride [Moles/Vol] 99 mmol/L 98-108 [facility] Glomerular filtration rate ( GFR) estimation/1.73 sq m using serum, plasma, or whole bOrdered By: Nitin Blair on 12-29-2024 GFR/1.73 sq M.predicted among non-blacks MDRD (S/P/Bld) [Vol rate/Area] 58 mL/min/{1.73_m2} Low >60 [facility] Comment on above: mL/min/1.73m2 CKD-EP I Creatinine Equation (2020) LDL calc ser/plasOrdered By: Nitin Blair on 12-29-2024 Cholesterol in LDL [Mass/Vol] 61 mg/dL [facility] Comment on above: Lgdsnojjeh=566-633 m g/dL & Higher Qufq=155 mg/dL or greater Lipid Profileon 12-29-2024 CHOL:HDL 2.33 Normal [facility] Comment on above: Performed By: #### L 502.0250, L500.4100, L500.2500 ####[facility] [address] [place], [address] Cholesterol [Mass/Vol] 133 mg/dL Normal <=200 [facility] Comment on above: Result Comment: Chol esterol level, Desirable <200 mg/dL Borderline high cholesterol 200-239 mg/dL High cholesterol >=240 mg/dL Recommendations of the NCEP Adult Treatment Panel for the following risk-cutoff thresholds for the [place] population. Performed By: #### L 502.0250, L500.4100, L500.2500 ####[facility] [address] [place], [address] Cholesterol in HDL [Mass/Vol] 57 mg/dL Normal [facility] Comment on above: Result Comment: [place] Cholesterol Education Program (NCEP) guidelines: <40 mg/dL: Low HDL-cholesterol (major risk factor for CHD) >= 60 mg/dL: High HDL-cholesterol (negative risk factor for CHD) HDL-cholesterol is affected by a number of factors, e.g. smoking, exercise, hormones, sex and age. Performed By: #### L 502.0250, L500.4100, L500.2500 ####[facility] [address] [place], [address] Cholesterol in LDL [Mass/Vol] 61 mg/dL Normal [facility] Comment on above: Result Comment: Bord kfrhay=467-907 mg/dL Higher Tsdv=157 mg/dL or greater Performed By: #### L 502.0250, L500.4100, L500.2500 ####[facility] [address] [place], [address] Cholesterol in VLDL [Mass/Vol] 15 mg/dL Normal 5-40 [facility] Comment on above: Performed By: #### L 502.0250, L500.4100, L500.2500 ####[facility] [address] [place], [address] Triglyceride [Mass/Vol] 75 mg/dL Normal [facility] Comment on above: Result Comment: The drugs N-Acetylcysteine and Metamizole may falsely depress this assay. Normal range: <150 mg/dL Borderline High: 150-199 mg/dL High: 200-499 mg/dL Very High: >500 mg/dL Performed By: #### L 502.0250, L500.4100, L500.2500 ####[facility] [address] [place], [address] Microalb:Creat Ratio,Random URon 12-29-2024 Creatinine [Mass/Vol] 60.40 mg/dL Normal 28.00-217.00 [facility] Comment on above: Performed By: #### L 502.0250, L500.4100, L500.2500 #### [facility] [address] [place], [address] MALB:CREAT 28.3 mg/g CRE Normal <30 mg/g CRE [facility] Comment on above: Performed By: #### L 502.0250, L500.4100, L500.2500 #### [facility] [address] [place], [address] MICROALBUMIN,UR 17.1 mg/L Normal <20 mg/L [facility] Comment on above: Performed By: #### L 502.0250, L500.4100, L500.2500 #### [facility] [address] [place], [address] Potassium measurement (mass/ volume)Ordered By: Nitin Blair on 12-29-2024 Potassium (Unsp spec) [Mass/Vol] 4.0 mmol/L 3.3-5.1 [facility] Random urine creatinine km urement (mass/volume)Ordered By: Nitin Blair on 12-29-2024 Creatinine Unsp time (U) [Mass/Vol] 60.40 mg/dL 28.00-217.00 [facility] Screening total cholesterol/ high density lipoprotein (HDL) cholesterol ratioOrdered By: Nitin Blair on 12-29-2024 Cholesterol.total/Batsheva sterol in HDL [Mass ratio] 2.33 {ratio} [facility] Serum creatinine measurement (mass/volume)Ordered By: Nitin Blair on 12-29-2024 Creatinine [Mass/Vol] 0.99 mg/dL 0.70-1.20 [facility] Serum glucose measurement (m ass/volume)Ordered By: Nitin Blair on 12-29-2024 Glucose [Mass/Vol] 97 mg/dL 70-99 [facility] Serum or plasma calcium km urement (mass/volume)Ordered By: Nitin Blair on 12-29-2024 Calcium [Mass/Vol] 9.2 mg/dL 7.6-11.0 [facility] Serum or plasma cholesterol in HDL measurement (mass/volume)Ordered By: Nitin Blair on 12-29-2024 Cholesterol in HDL [Mass/Vol] 57 mg/dL >40 [facility] Comment on above: National Cholesterol Education Program (NCEP) guidelines:<40 mg/dL: Low HDL-cholesterol (major risk factor for CHD)>= 60 mg/dL: High HDL-cholesterol (negative risk factor for CHD)HDL-cholesterol is affected by a number of factors, e.g. smoking, exercise, hormones, sex and age. Serum or plasma cholesterol measurement (mass/volume)Ordered By: Nitin Blair on 12-29-2024 Cholesterol [Mass/Vol] 133 mg/dL <201 [facility] Comment on above: Cholesterol level, D esirable <200 mg/dLBorderline high cholesterol 200-239 mg/dLHigh cholesterol >=240 mg/dLRecommendations of the NCEP Adult Treatment Panel for the following risk-cutoff thresholds for the [place] population. Serum or plasma urea nitroge n measurement (mass/volume)Ordered By: Nitin Blair on 12-29-2024 Urea nitrogen [Mass/Vol] 16 mg/dL 4-19 [facility] Sodium levelOrdered By: Nitin Blair on 12-29-2024 Sodium [Moles/Vol] 136 mmol/L 133-145 [facility] Triglycerides measurementOrd ered By: Nitin Blair on 12-29-2024 Triglyceride [Mass/Vol] 75 mg/dL <[address] [facility] Comment on above: The drugs N-Acetylcy steine and Metamizole may falsely depress this assay. Normal range: <150 mg/dLBorderline High: 150-199 mg/dLHigh: 200-499 mg/dLVery High: >500 mg/dL Urine albumin measurement wi th detection limit of 20 mg/L or less (mass/volume)Ordered By: Nitin Blair on 12-29-2024 Albumin DL <= 20 mg/L (U) [Mass/Vol] 17.1 mg/L <20 mg/L [facility] Microalb:Creat Ratio,Random URon 12-25-2024 Creatinine [Mass/Vol] 59.30 mg/dL Normal 28.00-217.00 [facility] Comment on above: Performed By: #### L 502.0250 #### [facility] [address] [place], [place], [address] MALB:CREAT 22.9 mg/g CRE Normal <30 mg/g CRE [facility] Comment on above: Performed By: #### L 502.0250 #### [facility] [address] [place], [place], [address] MICROALBUMIN,UR 13.6 mg/L Normal <20 mg/L [facility] Comment on above: Performed By: #### L 502.0250 #### [facility] [address] [place], [place], [address] Random urine creatinine km urement (mass/volume)Ordered By: Nitin Blair on 12-25-2024 Creatinine Unsp time (U) [Mass/Vol] 59.30 mg/dL 28.00-217.00 [facility] Urine albumin measurement wi th detection limit of 20 mg/L or less (mass/volume)Ordered By: Nitin Blair on 12-25-2024 Albumin DL <= 20 mg/L (U) [Mass/Vol] 13.6 mg/L <20 mg/L [facility] Comprehensive Metabolic Prof ilon 06-30-2024 Albumin [Mass/Vol] 3.6 g/dL Normal 3.2-5.0 [facility] Comment on above: Performed By: #### L 500.4100, L500.4050, L501.0900 #### [facility] [address] [place], [address] Albumin/Globulin [Mass ratio] 1.0 {ratio} Normal 0.9-2.4 [facility] Comment on above: Performed By: #### L 500.4100, L500.4050, L501.0900 #### [facility] [address] [place], [address] ALK P 47 U/L Normal 45-117 [facility] Comment on above: Performed By: #### L 500.4100, L500.4050, L501.0900 #### [facility] [address] [place], [address] ALT [Catalytic activity/Vol] 16 U/L Normal 13-56 [facility] Comment on above: Performed By: #### L 500.4100, L500.4050, L501.0900 #### [facility] [address] [place], [address] AST [Catalytic activity/Vol] 13 U/L Low 15-37 [facility] Comment on above: Performed By: #### L 500.4100, L500.4050, L501.0900 #### [facility] [address] [place], [address] Bilirubin [Mass/Vol] 1.00 mg/dL Normal 0.20-1.00 [facility] Comment on above: Result Comment: For patients on eltrombopag therapy, use of Dimension Thermal TBIL is not recommended. Performed By: #### L 500.4100, L500.4050, L501.0900 #### [facility] [address] [place], [address] BUN/CRE 20.9 RATIO High 10-20 [facility] Comment on above: Performed By: #### L 500.4100, L500.4050, L501.0900 #### [facility] [address] [place], [address] CA,Total 9.2 mg/dL Normal 8.5-10.1 [facility] Comment on above: Performed By: #### L 500.4100, L500.4050, L501.0900 #### [facility] [address] [place], [address] Chloride [Moles/Vol] 103 mmol/L Normal 98-107 [facility] Comment on above: Performed By: #### L 500.4100, L500.4050, L501.0900 #### [facility] [address] [place], [address] CO2 [Moles/Vol] 28.0 mmol/L Normal 21.0-32.0 [facility] Comment on above: Performed By: #### L 500.4100, L500.4050, L501.0900 #### [facility] [address] [place], [address] Creatinine [Mass/Vol] 0.91 mg/dL Normal 0.55-1.02 [facility] Comment on above: Result Comment: The validity of the calculated GFR GFRAA in patients over 70 years has not been determined. Clinical correlation is essential. Performed By: #### L 500.4100, L500.4050, L501.0900 #### [facility] [address] [place], [address] EST GFR - AA 77 mL/min Normal >60 [facility] Comment on above: Result Comment: Afri can [place] GFR Calc Performed By: #### L 500.4100, L500.4050, L501.0900 #### [facility] [address] [place], [address] GAP 5 Normal 5-15 [facility] Comment on above: Performed By: #### L 500.4100, L500.4050, L501.0900 #### [facility] [address] [place], [address] GFR/1.73 sq M.predicted among non-blacks MDRD (S/P/Bld) [Vol rate/Area] 63 mL/min/{1.73_m2} Normal >60 [facility] Comment on above: Result Comment: Non- GFR Calc Performed By: #### L 500.4100, L500.4050, L501.0900 #### [facility] [address] [place], [address] Globulin (S) [Mass/Vol] 3.7 g/dL Normal 2.2-4.[address] [facility] Comment on above: Performed By: #### L 500.4100, L500.4050, L501.0900 #### [facility] [address] [place], [address] Glucose [Mass/Vol] 102 mg/dL Normal 74-106 [facility] Comment on above: Result Comment: Fast ing Glucose result from 100 to 125 mg/dL suggests IMPAIRED HOMEOSTASIS per A.D.A. criteria. Performed By: #### L 500.4100, L500.4050, L501.0900 #### [facility] [address] [place], [address] Potassium [Moles/Vol] 3.5 mmol/L Normal 3.5-5.1 [facility] Comment on above: Performed By: #### L 500.4100, L500.4050, L501.0900 #### [facility] [address] [place], [address] Sodium [Moles/Vol] 136 mmol/L Normal 136-145 [facility] Comment on above: Performed By: #### L 500.4100, L500.4050, L501.0900 #### [facility] [address] [place], [address] T PROT 7.3 g/dL Normal 6.4-8.2 [facility] Comment on above: Performed By: #### L 500.4100, L500.4050, L501.0900 #### [facility] [address] [place], [address] Urea nitrogen [Mass/Vol] 19 mg/dL High 7-18 [facility] Comment on above: Performed By: #### L 500.4100, L500.4050, L501.0900 #### [facility] [address] [place], [address] Lipid Profileon 06-30-2024 Cholesterol [Mass/Vol] 130 mg/dL Normal 200 [facility] Comment on above: Result Comment: <200 mg/dL Desirable 200-240 mg/dL Borderline >240 mg/dL High Risk Performed By: #### L 500.4100, L500.4050, L501.0900 #### [facility] [address] [place], [address] Cholesterol in HDL [Mass/Vol] 59 mg/dL Normal [facility] Comment on above: Result Comment: The drugs N-Acetylcysteine and Metamizole may falsely depress this assay. Reference Range HDL <40 mg/dL Low HDL Cholesterol HDL >or= 60 mg/dL High HDL Cholesterol Performed By: #### L 500.4100, L500.4050, L501.0900 #### [facility] [address] [place], [address] Cholesterol in LDL [Mass/Vol] 56 mg/dL Normal 0-130 [facility] Comment on above: Performed By: #### L 500.4100, L500.4050, L501.0900 #### [facility] [address] [place], [address] Cholesterol in VLDL [Mass/Vol] 15 mg/dL Normal 5-40 [facility] Comment on above: Performed By: #### L 500.4100, L500.4050, L501.0900 #### [facility] [address] [place], [address] Triglyceride [Mass/Vol] 73 mg/dL Normal [facility] Comment on above: Result Comment: The drugs N-Acetylcysteine and Metamizole may falsely depress this assay. Serum Triglycerides Reference Interval Normal <150 mg/dL Borderline high 150 - 199 mg/dL High 200 - 499 mg/dL Very High > or = 500 mg/dL Performed By: #### L 500.4100, L500.4050, L501.0900 #### [facility] [address] [place], [address] Protein+Creatinine Ratio,Uri neon 06-30-2024 PROT:CRE RATIO 299 mg/g CRE High 0-200 [facility] Comment on above: Performed By: #### L 500.4100, L500.4050, L501.0900 #### [facility] [address] [place], [address] Protein (U) [Mass/Vol] 22.7 mg/dL High <11.9 [facility] Comment on above: Performed By: #### L 500.4100, L500.4050, L501.0900 #### [facility] [address] [place], [address] UR CREAT 76.00 mg/dL Normal NO RANGE EST. [facility] Comment on above: Performed By: #### L 500.4100, L500.4050, L501.0900 #### [facility] [address] [place], [address] SCRN MAMM (CAD)W/BEBO BILATo n 05-12-2024 SCRN MAMM (CAD)W/BEBO BILAT [facility] [address] [place] [address] SCRN MAMM (CAD)W/BEBO BILAT MR#: [id number] Acct: [id number] Name: LAW STAHL Rep #: [id number] : 1945 F 78 From: Addi hamlin MD PCP: Dr. Nitin Blair MD Status: [facility] Study: SCRN MAMM (CAD)W/BEBO BILAT Date of Exam: 08/04 Exam# [id number] Ordering Dr: Nitin Blair MD [id number] MAMMOGRAPHY - BILATERAL SCREENING REASON FOR EXAM: Female, 78 years old. Routine annual screening examination. PERTINENT HISTORY: Sister with breast cancer. TECHNIQUE: Digital bilateral breast bebo (3D mammographic acquisition) in the CC and MLO projections. 2-D mediolateral oblique (MLO) and craniocaudad (CC) views of both breasts were obtained. CAD: Full Field Digital Mammography with Computer Added Detection was performed. COMPARISON: Comparison is made with prior study March 16, 2023 and March 13, 2022. FINDINGS: Breast Composition: There are scattered areas of fibroglandular density. There are no dominant masses or suspicious calcifications. Since prior study, there has been an increase in the breast tissue seen in both breasts. This may be related to patient''s medication intake. Clinical correlation recommended. No other significant abnormalities are identified. BI/SCRN MAMM (CAD)W/BEBO BILAT IMPRESSION: Increased glandular tissue as compared to prior study. This may be related to patient''s medication intake. Clinical correlation recommended. Yearly follow-up mammogram recommended. (A) ASSESSMENT CATEGORY: BIRADS Category 2: Benign. A letter regarding these results will be sent to the patient by the facility within 30 days. Approximately 10% of breast cancers are not detected by mammography. A normal mammogram should not delay biopsy of a clinically suspicious abnormality. [id number] Electronically Signed: Addi Azar MD at 10:13 EST , CC: Dr. Nitin Blair MD Review Engineer: Signed Normal [facility] Cardiology Visit Reporton Cardiology Visit Report [facility] [address] [place] [address] OFFICE VISIT Date of Service: 03/18/24 MR#: [id number] Acct: [id number] Name: LAW STAHL Rep #: [id number] : 1945 Provider: ISAC del cid Age/Sex: 78/F Location: [facility] [place] Status: Signed HPI HPI History of Present Illness Details: This is a 78-year-old white female who presents today for an outpatient cardiovascular follow-up visit. She has a history of underlying coronary artery calcification and nonobstructive CAD, nonsustained wide-complex tachycardia, hyperlipidemia, and hypertension. From a cardiac standpoint, the patient is doing well. She denies any palpitations, chest pain, pressure or heaviness. She denies SOB, Orthopnea, and PND. She does not have bleeding issues; no blood in urine, stool or nosebleeds. She denies any decrease in energy level, myalgias, or claudication. She does not have edema, or sudden weight gain. She denies dizziness, lightheadedness, syncopal or near syncopal episodes, and headaches. Intake Vital Signs 03/16/23 10:49 01/15/24 11:02 03/18/24 08:33 Height 5 ft 3 in 5 ft 4 in 5 ft 4 in Weight: 139 lb 139 lb BMI 23.8 23.8 BP 120/69 Blood Pressure Location Lt brachial Position Sitting Respiration 16 Pulse 78 Pulse Source NIBP Intake Visit Reasons: 1 Y FU/PREV PFM Allergies exenatide (From Byetta) Adverse Reaction (Severe, Verified 03/18/24 08:41) hives, nausea, vomiting codeine Adverse Reaction (Intermediate, Verified 03/18/24 08:41) Vomiting liraglutide (From Victoza) Adverse Reaction (Intermediate, Verified 03/18/24 08:41) Nausea,vomiting Medications ???Medication ???Instructions ???Recorded ???Confirmed ???Type metformin 1,000 mg tablet 1,000 mg PO BID 90 days #180 tabs 07/15/18 03/18/24 History pravastatin 40 mg tablet 40 mg PO DAILY 90 days #90 tabs 08/26/18 03/18/24 History cholecalciferol (vitamin D3) 125 125 mcg PO DAILY 08/01/19 03/18/24 History mcg (5,000 unit) capsule dapagliflozin propanediol 5 mg 5 mg PO DAILY 08/01/19 03/18/24 History tablet (Farxiga) esomeprazole magnesium 20 mg 20 mg PO DAILY 08/01/19 03/18/24 History capsule,delayed release (Nexium) multivitamin 1 tab PO DAILY 08/01/19 03/18/24 History aspirin-acetaminophe n-caffeine 250 1 tab PO DAILY PRN 01/23/22 03/18/24 History mg-250 mg-65 mg tablet (Excedrin Extra Strength) metoprolol tartrate 25 mg tablet 25 mg PO DAILY 01/23/22 03/18/24 History potassium chloride 20 mEq 20 meq PO DAILY 01/23/22 03/18/24 History tablet,extended release losartan 50 mg tablet 100 mg PO QDAY 11/20/23 03/18/24 History calcium acetate PO QDAY 03/18/24 03/18/24 History insulin glargine 100 unit/mL (3 15 unit subcut DAILY 03/18/24 03/18/24 History mL) subcutaneous pen (Basaglar KwikPen U-100 Insulin) Have you fallen in the past year?: No PFSH Medical History Fracture of proximal phalanx of left little finger Fracture of fifth metatarsal bone of left foot Essential hypertension Abnormal stress test Chest discomfort Abnormal myocardial perfusion study Ventricular tachyarrhythmia CAD in [place] artery Diabetes mellitus Atherosclerotic heart disease of [place] coronary artery without angina pectoris Surgical History History of bladder repair surgery History of partial colectomy History of fusion of cervical spine History of carpal tunnel surgery of right wrist Hx of cholecystectomy History of hysterectomy History of appendectomy Family History (Reviewed 03/18/24 @ 08:41 by Shawna Henriquez ECHOCARDIOGRAPHY TECH, ECHOCARDIOGRAPHY TECH-C) Mother CAD (coronary artery disease) Hx CABG Cancer Lung cancer Grandmother CVA (cerebral vascular accident) Grandfather CVA (cerebral vascular accident) Brother Heart disease CAD (coronary artery disease) Hx CABG Myocardial infarction Cancer pancreas, stomach Sister CAD (coronary artery disease) Cancer breast Son , age 53 Cancer lung Social History (Reviewed 03/18/24 @ 08:41 by Shawna Henriquez ECHOCARDIOGRAPHY TECH, ECHOCARDIOGRAPHY TECH-C) Smoking Status: Never smoker alcohol intake: never substance use type: does not use caffeine: Yes Type: coffee Number of servings: 1 what type of physical activity do you participate in: none seatbelt use: always do you feel safe at home: Yes ROS Const Const: Negative for fatigue, weakness, fever(s), headache(s), chills, frequent falls, weight gain or weight loss Eyes Eyes: Negative for blind spots, loss of peripheral vision, transient loss of vision, blurry vision, change in vision, double vision, floaters or tunnel vision ENT ENT: Negative for headache(s), dizziness, Nosebleed/epistaxis, balance prob (more content not included)... Normal [facility] Basophil percentageOrdered B y: Nitin Blair on 09-26-2023 Bilirubin [Mass/Vol] 0.90 mg/dL 0.20-1.00 [facility] Comment on above: For patients on eltr ombopag therapy, use of Dimension Thermal TBIL is not recommended. Chloride [Moles/Vol] 101 mmol/L 98-107 [facility] Glucose [Mass/Vol] 211 mg/dL 74-106 [facility] Comment on above: Glucose result great er than or equal to 200 mg/dLsuggests DIABETES MELLITUS per A.D.A. criteria. Potassium [Moles/Vol] 4.1 mmol/L 3.5-5.1 [facility] Protein [Mass/Vol] 7.2 g/dL 6.4-8.2 [facility] Sodium [Moles/Vol] 134 mmol/L 136-145 [facility] Laboratory - Chemistry and C hemistry - challengeOrdered By: Nitin Blair on 09-26-2023 Albumin/Globulin [Mass ratio] 1.1 {ratio} 0.9-2.4 [facility] ALP [Catalytic activity/Vol] 49 U/L 45-117 [facility] ALT [Catalytic activity/Vol] 22 U/L 13-56 [facility] CO2 [Moles/Vol] 26.0 mmol/L 21.0-32.0 [facility] Globulin (S) [Mass/Vol] 3.4 g/dL 2.2-4.[address] [facility] Urea nitrogen/Creatinine [Mass ratio] 16.8 mg/mg 10-20 [facility] No Panel InformationOrdered By: Nitin Blair on 09-26-2023 Estimated GFR (MDRD) Amer 60 mL/min >60 [facility] Comment on above: GFR Calc Estimated GFR (MDRD) Non-Af Amer 49 mL/min >60 [facility] Comment on above: Non- GFR Calc Serum or plasma calcium km urement (mass/volume)Ordered By: Nitin Blair on 09-26-2023 Calcium [Mass/Vol] 9.1 mg/dL 8.5-10.1 [facility] Serum or plasma creatinine m easurement (mass/volume)Ordered By: Nitin Blair on 09-26-2023 Creatinine [Mass/Vol] 1.13 mg/dL 0.55-1.02 [facility] Comment on above: The validity of the calculated GFR & GFRAA in patients over 70 years has not been determined. Clinical correlation is essential. Serum or plasma urea nitroge n measurement (mass/volume)Ordered By: Nitin Blair on 09-26-2023 Urea nitrogen [Mass/Vol] 19 mg/dL 7-18 [facility] Thin prep Papanicolaou smear with manual screeningOrdered By: Nitin Blair on 09-26-2023 Thin prep Papanicolaou smear with manual screening 3.8 g/dL 3.2-5.0 [facility] Thin prep Papanicolaou smear with manual screening 19 U/L 15-37 [facility] Thin prep Papanicolaou smear with manual screening 7 5-15 [facility] Basophil percentageOrdered B y: Nitin Blair on 05-24-2023 Chloride [Moles/Vol] 104 mmol/L 98-107 [facility] Cholesterol [Mass/Vol] 132 mg/dL <200 [facility] Comment on above: <200 mg/dL Desirable 200-240 mg/dL Borderline >240 mg/dL High Risk Glucose [Mass/Vol] 122 mg/dL 74-106 [facility] Comment on above: Fasting Glucose resu lt from 100 to 125 mg/dL suggests IMPAIRED HOMEOSTASIS per A.D.A. criteria. Potassium [Moles/Vol] 3.7 mmol/L 3.5-5.1 [facility] Sodium [Moles/Vol] 136 mmol/L 136-145 [facility] Triglyceride [Mass/Vol] 91 mg/dL <199 [facility] Comment on above: The drugs N-Acetylcy steine and Metamizole may falsely depress this assay.Serum Triglycerides Reference Interval Normal <150 mg/dL Borderline high 150 - 199 mg/dL High 200 - 499 mg/dL Very High > or = 500 mg/dL Laboratory - Chemistry and C hemistry - challengeOrdered By: Nitin Blair on 05-24-2023 CO2 [Moles/Vol] 25.0 mmol/L 21.0-32.0 [facility] Urea nitrogen/Creatinine [Mass ratio] 18.4 mg/mg 10-20 [facility] No Panel InformationOrdered By: Nitin Blair on 05-24-2023 Estimated GFR (MDRD) Amer 71 mL/min >60 [facility] Comment on above: GFR Calc Estimated GFR (MDRD) Non-Af Amer 58 mL/min >60 [facility] Comment on above: Non- GFR Calc Urine Microalbumin/Creatinine Ratio 108.8 mg/g CRE <30 [facility] Serum or plasma calcium km urement (mass/volume)Ordered By: Nitin Blair on 05-24-2023 Calcium [Mass/Vol] 9.2 mg/dL 8.5-10.1 [facility] Serum or plasma cholesterol in HDL measurement (mass/volume)Ordered By: Nitin Blair on 05-24-2023 Cholesterol in HDL [Mass/Vol] 48 mg/dL >40 [facility] Comment on above: The drugs N-Acetylcy steine and Metamizole may falsely depress this assay. Reference Range HDL <40 mg/dL Low HDL Cholesterol HDL >or= 60 mg/dL High HDL Cholesterol Serum or plasma cholesterol in VLDL measurement (mass/volume)Ordered By: Nitin Blair on 05-24-2023 Cholesterol in VLDL [Mass/Vol] 18 mg/dL 5-40 [facility] Serum or plasma creatinine m easurement (mass/volume)Ordered By: Nitin Blair on 05-24-2023 Creatinine [Mass/Vol] 0.98 mg/dL 0.55-1.02 [facility] Comment on above: The validity of the calculated GFR & GFRAA in patients over 70 years has not been determined. Clinical correlation is essential. Serum or plasma low density lipoprotein (LDL) cholesterol measurement (mass/volume)Ordered By: Nitin Blair on 05-24-2023 Cholesterol in LDL [Mass/Vol] 66 mg/dL 0-130 [facility] Serum or plasma urea nitroge n measurement (mass/volume)Ordered By: Nitin Blair on 05-24-2023 Urea nitrogen [Mass/Vol] 18 mg/dL 7-18 [facility] Thin prep Papanicolaou smear with manual screeningOrdered By: Nitin Blair on 05-24-2023 Thin prep Papanicolaou smear with manual screening 7 5-15 [facility] Thin prep Papanicolaou smear with manual screening 70.2 mg/L NO RANGE EST. [facility] Urine creatinine measurement (mass/volume)Ordered By: Nitin Blair on 05-24-2023 Creatinine (U) [Mass/Vol] 64.50 mg/dL NO RANGE EST. [facility] Basophil percentageOrdered B y: Dr. Blair on 08-23-2022 Chloride [Moles/Vol] 98 mmol/L 98-107 [facility] Glucose [Mass/Vol] 113 mg/dL 74-106 [facility] Comment on above: Fasting Glucose resu lt from 100 to 125 mg/dL suggests IMPAIRED HOMEOSTASIS per A.D.A. criteria. Potassium [Moles/Vol] 3.4 mmol/L 3.5-5.1 [facility] Sodium [Moles/Vol] 135 mmol/L 136-145 [facility] - Chemistry and C hemistry - challengeOrdered By: Dr. Blair on 08-23-2022 CO2 [Moles/Vol] 27.0 mmol/L 21.0-32.0 [facility] Urea nitrogen/Creatinine [Mass ratio] 20.3 mg/mg - [facility] No Panel InformationOrdered By: Dr. Blair on 08-23-2022 Estimated GFR (MDRD) Amer 75 mL/min >60 [facility] Comment on above: GFR Calc Estimated GFR (MDRD) Non-Af Amer 62 mL/min >60 [facility] Comment on above: Non- GFR Calc Serum or plasma calcium km urement (mass/volume)Ordered By: Dr. Blair on 08-23-2022 Calcium [Mass/Vol] 9.1 mg/dL 8.5-10.1 [facility] Serum or plasma creatinine m easurement (mass/volume)Ordered By: Dr. Blair on 08-23-2022 Creatinine [Mass/Vol] 0.93 mg/dL 0.55-1.02 [facility] Comment on above: The validity of the calculated GFR & GFRAA in patients over 70 years has not been determined. Clinical correlation is essential. Serum or plasma urea nitroge n measurement (mass/volume)Ordered By: Dr. Blair on 08-23-2022 Urea nitrogen [Mass/Vol] 19 mg/dL 7-18 [facility] Thin prep Papanicolaou smear with manual screeningOrdered By: Dr. Blair on 08-23-2022 Thin prep Papanicolaou smear with manual screening 10 -15 [facility] Basophil percentageon 2021 Chloride [Moles/Vol] 101 mmol/L 98-107 [facility] Work Phone: Glucose [Mass/Vol] 237 mg/dL 74-106 [facility] Work Phone: Comment on above: Glucose result great er than or equal to 200 mg/dLsuggests DIABETES MELLITUS per A.D.A. criteria. Potassium [Moles/Vol] 3.8 mmol/L 3.5-5.1 [facility] Work Phone: Sodium [Moles/Vol] 135 mmol/L 136-145 [facility] Work Phone: Laboratory - Chemistry and C hemistry - challengeon 03-23-2022 CO2 [Moles/Vol] 25.0 mmol/L 21.0-32.0 [facility] Work Phone: Urea nitrogen/Creatinine [Mass ratio] 16.3 mg/mg 10-20 [facility] Work Phone: No Panel Informationon 03-23 Estimated GFR (MDRD) Amer 54 mL/min >60 [facility] Work Phone: Comment on above: GFR Calc Estimated GFR (MDRD) Non-Af Amer 45 mL/min >60 [facility] Work Phone: Comment on above: Non- GFR Calc Serum or plasma calcium km urement (mass/volume)on 03-23-2022 Calcium [Mass/Vol] 9.0 mg/dL 8.5-10.1 [facility] Work Phone: Serum or plasma creatinine m easurement (mass/volume)on 03-23-2022 Creatinine [Mass/Vol] 1.23 mg/dL 0.55-1.02 [facility] Work Phone: Comment on above: The validity of the calculated GFR & GFRAA in patients over 70 years has not been determined. Clinical correlation is essential. Serum or plasma urea nitroge n measurement (mass/volume)on 03-23-2022 Urea nitrogen [Mass/Vol] 20 mg/dL 7-18 [facility] Work Phone: Thin prep Papanicolaou smear with manual screeningon 03-23-2022 Thin prep Papanicolaou smear with manual screening 9 5-15 [facility] Work Phone: Basophil percentageon 2021 Chloride [Moles/Vol] 98 mmol/L 98-107 [facility] Work Phone: Cholesterol [Mass/Vol] 127 mg/dL <200 [facility] Work Phone: Comment on above: <200 mg/dL Desirable 200-240 mg/dL Borderline >240 mg/dL High Risk Glucose [Mass/Vol] 101 mg/dL 74-106 [facility] Work Phone: Comment on above: Fasting Glucose resu lt from 100 to 125 mg/dL suggests IMPAIRED HOMEOSTASIS per A.D.A. criteria. Potassium [Moles/Vol] 3.4 mmol/L 3.5-5.1 [facility] Work Phone: Sodium [Moles/Vol] 133 mmol/L 136-145 [facility] Work Phone: Triglyceride [Mass/Vol] 67 mg/dL <199 [facility] Work Phone: Comment on above: The drugs N-Acetylcy steine and Metamizole may falsely depress this assay.Serum Triglycerides Reference Interval Normal <150 mg/dL Borderline high 150 - 199 mg/dL High 200 - 499 mg/dL Very High > or = 500 mg/dL Laboratory - Chemistry and C hemistry - challengeon 02-23-2022 CO2 [Moles/Vol] 26.0 mmol/L 21.0-32.0 [facility] Work Phone: Urea nitrogen/Creatinine [Mass ratio] 19.4 mg/mg 10-20 [facility] Work Phone: No Panel Informationon 02-23 Estimated GFR (MDRD) Amer 63 mL/min >60 [facility] Work Phone: Comment on above: GFR Calc Estimated GFR (MDRD) Non-Af Amer 52 mL/min >60 [facility] Work Phone: Comment on above: Non- GFR Calc Serum or plasma calcium km urement (mass/volume)on 02-23-2022 Calcium [Mass/Vol] 8.7 mg/dL 8.5-10.1 [facility] Work Phone: Serum or plasma cholesterol in HDL measurement (mass/volume)on 02-23-2022 Cholesterol in HDL [Mass/Vol] 54 mg/dL >40 [facility] Work Phone: Comment on above: The drugs N-Acetylcy steine and Metamizole may falsely depress this assay. Reference Range HDL <40 mg/dL Low HDL Cholesterol HDL >or= 60 mg/dL High HDL Cholesterol Serum or plasma cholesterol in VLDL measurement (mass/volume)on 02-23-2022 Cholesterol in VLDL [Mass/Vol] 13 mg/dL 5-40 [facility] Work Phone: Serum or plasma creatinine m easurement (mass/volume)on 02-23-2022 Creatinine [Mass/Vol] 1.08 mg/dL 0.55-1.02 [facility] Work Phone: Comment on above: The validity of the calculated GFR & GFRAA in patients over 70 years has not been determined. Clinical correlation is essential. Serum or plasma low density lipoprotein (LDL) cholesterol measurement (mass/volume)on 02-23-2022 Cholesterol in LDL [Mass/Vol] 60 mg/dL 0-130 [facility] Work Phone: Serum or plasma urea nitroge n measurement (mass/volume)on 02-23-2022 Urea nitrogen [Mass/Vol] 21 mg/dL 7-18 [facility] Work Phone: Thin prep Papanicolaou smear with manual screeningon 02-23-2022 Thin prep Papanicolaou smear with manual screening 9 5-15 [facility] Work Phone: Replaced Document: Belia Koenig CG Kaylaon 11-11-2015 EKG QRS axis 55 deg [facility] Work Phone: [phone] Interpretation Sinus Rhythm WITHIN NORMAL LIMITS [facility] Work Phone: [phone] P [place] 66 deg [facility] Work Phone: [phone] VT Interval 146 ms [facility] Work Phone: [phone] QRS Duration 90 ms [facility] Work Phone: [phone] QT Interval new path ms [facility] Work Phone: [phone] QTc Baxter 414 ms [facility] Work Phone: [phone] T [place] 63 deg [facility] Work Phone: [phone] 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 Left ventricular Ejection fraction 65 % [facility] Work Phone: [phone] Office Visit: [facility] 10-22-19 15 cardiac risk group C [facility] Work Phone: [phone] General cardiovascular disease 10Y risk [#] [place].D'Agostumesh N/A [facility] Work Phone: [phone] Tobacco smoking status NHIS Never smoker [facility] Work Phone: [phone] Tobacco smoking status NHIS Never [facility] Work Phone: [phone] External Other: Preferred Me thod of Contacton 04-22-2014 methcontact secmsg [facility] Work Phone: [phone] 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 Glucose [Mass/Vol] 99 mg/dL [facility] Work Phone: [phone] Calcium [Mass/Vol] 9.1 mg/dL [facility] Work Phone: [phone] Chloride [Moles/Vol] 102 mmol/L [facility] Work Phone: [phone] Cholesterol [Mass/Vol] 151 mg/dL [facility] Work Phone: [phone] Cholesterol in HDL [Mass/Vol] 49 mg/dL [facility] Work Phone: [phone] Cholesterol in LDL [Mass/Vol] 88 mg/dL [facility] Work Phone: [phone] CO2 (BldV) [Partial pressure] 27.0 mmol/L [facility] Work Phone: [phone] Creatinine [Mass/Vol] 1.0 mg/dL [facility] Work Phone: [phone] Lipoprotein.pre-beta [Mass/Vol] 14 mg/dL [facility] Work Phone: [phone] Potassium [Moles/Vol] 3.8 mmol/L [facility] Work Phone: [phone] Sodium [Moles/Vol] 139 mmol/L [facility] Work Phone: [phone] Triglyceride [Mass/Vol] 70 mg/dL [facility] Work Phone: [phone] Urea nitrogen [Mass/Vol] 21 mg/dL [facility] Work Phone: [phone] Lab Report: CBCDon 3 Hematocrit (Bld) [Volume fraction] 33.4 % Low 37-47 [facility] Work Phone: [phone] Hemoglobin (Bld) [Mass/Vol] 11.6 g/dL Low 12.0-15.0 [facility] Work Phone: [phone] Platelets (Bld) [#/Vol] 207 10*3/mm3 Normal 150-450 [facility] Work Phone: [phone] RBC (Bld) [#/Vol] 3.85 10*6/uL Low 4.2-5.4 [facility] Work Phone: [phone] WBC (Bld) [#/Vol] 4.8 10*3/uL Normal 4.4-11.0 [facility] Work Phone: [phone] Lab Report: T4on 01-09-2013 T4 [Mass/Vol] 11.3 ug/dL Normal 4.8-13.9 [facility] Work Phone: [phone] Lab Report: TSHon 01-09-2013 TSH Qn 1.27 u[iU]/mL Normal 0.358-3.74 [facility] Work Phone: [phone] 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 ALP (Bld) [Catalytic activity/Vol] 53 U/L [facility] Work Phone: [phone] ALT [Catalytic activity/Vol] 22 U/L [facility] Work Phone: [phone] Anion gap [Moles/Vol] 9 mmol/L [facility] Work Phone: [phone] AST [Catalytic activity/Vol] 13 U/L [facility] Work Phone: [phone] Bilirubin [Mass/Vol] 1.10 mg/dL [facility] Work Phone: [phone] Urea nitrogen/Creatinine [Mass ratio] 18.0 mg/mg [facility] Work Phone: [phone] Vital Signs Date Time Vital Sign Value Performing Clinician Faci lity 12-30-2024 13:03-0400 Diastolic blood pressure 67 mm[Hg] Dr. Nitin Blair MD Work Phone: [facility] 12-30-2024 13:03-0400 Heart rate 71 /min Dr. Nitin Blair MD Work Phone: [facility] 12-30-2024 13:03-0400 Systolic blood pressure 171 mm[Hg] Dr. Nitin Blair MD Work Phone: [phone] [address] 12-30-2024 12:51-0400 Body height 162.[address] Nitin Blair MD Work Phone: [phone] [address] 12-30-2024 12:51-0400 Body mass index (BMI) [Ratio] 24.9 kg/m2 Dr. Nitin Blair MD Work Phone: [facility] 12-30-2024 12:51-0400 Body weight 65.[address] Nitin Blair MD Work Phone: [phone] [place] [address] 12-30-2024 12:51-0400 Respiratory rate 16 /min Dr. Nitin Blair MD Work Phone: [facility] 03-16-2023 10:49-0400 Body height 160.[address] Nitin Blair Work Phone: [facility] 03-16-2023 10:49-0400 Body mass index (BMI) [Ratio] 28.5 kg/m2 Dr. Nitin Blair Work Phone: [facility] 03-16-2023 10:49-0400 Body weight 73.[address] Nitin Blair Work Phone: [facility] 03-16-2023 10:49-0400 Diastolic blood pressure 73 mm[Hg] Dr. Nitin Blair Work Phone: [facility] 03-16-2023 10:49-0400 Heart rate 80 /min Dr. Nitin Blair Work Phone: [facility] 03-16-2023 10:49-0400 Respiratory rate 18 /min Dr. Nitin Blair Work Phone: [facility] 03-16-2023 10:49-0400 SaO2% (BldA) [Mass fraction] 97 % Dr. Nitin Blair Work Phone: [facility] 03-16-2023 10:49-0400 Systolic blood pressure 159 mm[Hg] Dr. Nitin Blair Work Phone: [facility] 01-23-2022 11:39-0400 Body height 160.[address] Nitin Blair Work Phone: [facility] Work Phone: 01-23-2022 11:39-0400 Body mass index (BMI) [Ratio] 27.7 kg/m2 Dr. Nitin Blair Work Phone: [facility] Work Phone: 01-23-2022 11:39-0400 Body weight 70.[address] Nitin Blair Work Phone: [facility] Work Phone: 01-23-2022 11:39-0400 Diastolic blood pressure 70 mm[Hg] Dr. Nitin Blair Work Phone: [facility] Work Phone: 01-23-2022 11:39-0400 Heart rate 68 /min Dr. Nitin Blair Work Phone: [facility] Work Phone: 01-23-2022 11:39-0400 Respiratory rate 16 /min Dr. Nitin Blair Work Phone: [facility] Work Phone: 01-23-2022 11:39-0400 Systolic blood pressure 150 mm[Hg] Dr. Nitin Blair Work Phone: [phone] [place] [address] Work Phone: 10-23-2016 14:220400 BMI (Body Mass Index) 27.1 kg/m2 [facility] Work Phone: 10-23-2016 [id number]:[id number] Body weight 71.62 kg [facility] Work Phone: 10-23-2016 14:22-0400 BP Diastolic 70 mm[Hg] [facility] Work Phone: 10-23-2016 14:22-0400 BP Systolic 142 mm[Hg] [facility] Work Phone: 10-23-2016 [id number]:220400 Height 162.56 cm [facility] Work Phone: 10-23-2016 14:22-0400 Pulse (Heart Rate) 57 /min [facility] Work Phone: 10-23-2016 [id number]:[id number] Pulse Oximetry 100 % [facility] Work Phone: 04-26-2016 14:090500 BSA (Body Surface Area) 1.75 m2 [facility] Work Phone: 04-26-2016 14:09-0500 Respiratory Rate 16 /min [facility] Work Phone: 11-11-2015 09:12-0400 Heart rate 81 /min [facility] Work Phone: 01-09-2013 12:15-0400 Heart rate 410 ms [facility] Work Phone: Encounters Encounter Date Encounter Type Care Provider Facility Start: 01-23-2025 ambulatory Nitin Blair Facility:[facility] Start: 01-02-2025 Non-patient / Non-visit [facility] Work Phone: Start: 01-02-2025 End: 01-02-[address] Nitin Blair MD Work Phone: -Pulmonary Services/Neurology Start: 01-02-2025 End: 01-02-2025 Patient encounter procedure Marisela MERRITT -Pulmonary Services/Neurology Work Phone: Start: 01-02-2025 End: 01-02-2025 ambulatory Nitin Blair Facility:[facility] Start: 12-30-2024 End: 12-30-2024 Patient encounter procedure Marisela MERRITT -[facility] Work Phone: Start: 12-30-2024 End: 12-30-[address] Nitin Blair MD Work Phone: -[facility] Start: 12-29-2024 End: 12-29-[address] Nitin Blair MD Work Phone: -[facility] [place] Start: 12-29-2024 End: 12-29-[address] [facility] Start: 12-29-2024 End: 12-29-2024 ambulatory Nitin Blair Facility:[facility] Start: 12-25-2024 End: 12-25-[address] Nitin Blair MD Work Phone: -[facility] [place] Start: 12-25-2024 End: 12-25-[address] Nitin Blair MD -[facility] [place] Work Phone: Start: 12-25-2024 End: 12-25-2024 ambulatory Nitin Blair Facility:[facility] Start: 06-30-2024 End: 06-30-2024 ambulatory Nitin Blair Facility:[facility] Start: 05-12-2024 End: 05-12-2024 ambulatory Nitin Blair Facility:[facility] Start: 03-18-2024 End: 03-18-2024 ambulatory Nitin Blair Facility:[facility] Start: 09-26-2023 End: 09-26-2023 ambulatory [facility] Work Phone: Start: 09-26-2023 End: 09-26-2023 Patient encounter procedure [facility] Start: 05-24-2023 End: 05-24-[address] Nitin Blair Work Phone: [facility] Work Phone: Start: 05-24-2023 End: 05-24-[address] Nitin Blair Work Phone: [facility] Start: 03-16-2023 End: 03-16-[address] Nitin Blair Work Phone: [facility] Work Phone: Start: 03-16-2023 End: 03-16-[address] Nitin Blair Work Phone: [facility] Work Phone: Start: 08-23-2022 End: 08-23-2022 ambulatory [facility] Work Phone: Start: 08-23-2022 End: 08-23-2022 Patient encounter procedure [facility] Start: 03-23-2022 End: 03-23-[address] Nitin Blair Work Phone: [facility] Work Phone: Start: 03-23-2022 End: 03-23-[address] Nitin Blair Work Phone: [facility] Start: 03-13-2022 End: 03-13-[address] Nitin Blair Work Phone: [facility] Work Phone: Start: 03-13-2022 End: 03-13-[address] Nitin Blair Work Phone: [facility] Start: 02-23-2022 End: 02-23-[address] Nitin Blair Work Phone: [facility] Work Phone: Start: 02-23-2022 End: 02-23-[address] Nitin Blair [facility] Start: 01-23-2022 End: 01-23-[address] Nitin Blair Work Phone: [facility] Procedures Date Procedure Procedure Detail Performing Clinician Start: 12-29-2024 Urine microalbumin/creatinine ratio measurement Dr. Nitin Blair MD Work Phone: Start: 12-25-2024 Urine microalbumin/creatinine ratio measurement Dr. Nitin Blair MD Work Phone: Start: 03-16-2023 Screening mammography Kyle Blair Work Phone: Start: 03-13-2022 Screening mammography D dori Blair Work Phone: Start: 10-23-2016 End: 10-23-2016 Documentation of current medications Lazara Bedolla Start: 10-23-2016 End: 10-23-2016 Follow Up Appt 6 months Marisela worrell PA-C Work Phone: Start: 10-23-2016 End: 10-23-2016 PFM Marisela Bernardo PA-C Work Phone: Start: 04-26-2016 End: 04-26-2016 Dietary management education, guidance, and counseling Lazara Bedolla Start: 04-26-2016 End: 04-26-2016 Follow Up Appt 6 months Nitin Rodriguez MD Start: 04-26-2016 End: 04-26-2016 MMHelga Rodriguez MD Start: 11-11-2015 End: 11-11-2015 Ecg routine ecg w/least 12 lds w/i&r Marisela Bernardo PA-C Work Phone: Start: 11-11-2015 End: 11-11-2015 Follow Up Appt 6 months Marisela worrell PA-C Work Phone: Start: 11-11-2015 End: 11-11-2015 Follow Up Appt Other Marisela urbina PA-C Work Phone: Start: 11-11-2015 End: 11-11-2015 PFM Marisela Bernardo PA-C Work Phone: Start: 04-26-2015 End: 04-26-2015 Follow Up Appt 6 months Nitin Rodriguez MD Start: 04-26-2015 End: 04-26-2015 WAYNE Rodriguez MD Start: 10-21-2014 End: 10-22-2014 Documentation of current medications Marisela Bernardo PA-C Work Phone: Start: 10-21-2014 End: 10-26-2015 Follow Up Appt 6 months Marisela worrell PA-C Work Phone: Start: 10-21-2014 End: 10-26-2015 PFM Marisela Bernardo PA-C Work Phone: Start: 04-22-2014 End: 04-22-2014 Ecg routine ecg w/least 12 lds w/i&r Nitin Rodriguez MD Start: 04-22-2014 End: 04-22-2014 Follow Up Appt 6 months Nitin Rodriguez MD Start: 04-22-2014 End: 10-26-2015 Follow Up Appt Other Nitin Rodriguez MD Start: 04-22-2014 End: 04-22-2014 WAYNE Rodriguez MD Start: 10-14-2013 End: 10-14-2013 Follow Up Appt 6 months Marisela worrell PA-C Work Phone: Start: 10-14-2013 End: 10-14-2013 PFM Marisela Bernardo PA-C Work Phone: Start: 04-11-2013 End: 04-11-2013 eRx Transmitted during this visit (Medicare only) Nitin Rodriguez MD Start: 04-11-2013 End: 04-11-2013 Follow Up Appt 6 months Nitin Rodriguez MD Start: 04-11-2013 End: 04-11-2013 MMM Nitin Rodriguez MD Start: 01-09-2013 End: 01-15-2013 *BMP Nitin Rodriguez MD Start: 01-09-2013 End: 01-09-2013 *CBC with Differential Nitin Rodriguez MD Start: 01-09-2013 End: 01-15-2013 Chest x-ray Nitin Rodriguez MD Start: 01-09-2013 End: 01-09-2013 Ecg routine ecg w/least 12 lds w/i&r Nitin Rodriguez MD Start: 01-09-2013 End: 01-09-2013 Follow Up Appt 3 months Nitin Rodriguez MD Start: 01-09-2013 End: 10-26-2015 Left Heart Cath Nitin Rodriguez MD Start: 01-09-2013 End: 01-09-2013 PFM Nitin Rodriguez MD Start: 01-09-2013 End: 01-15-2013 Thyrotropin [Units/volume] in Serum or Plasma Nitin Rodriguez MD Start: 01-09-2013 End: 01-15-2013 Thyroxine (T4) [Mass/volume] in Serum or Plasma Nitin Rodriguez MD Plan of Treatment Date Care Activity Detail Author Start: 07-09-2017 End: 07-09-2017 Appointment Appointment [facility] Work Phone: Start: 10-23-2016 End: 10-23-2016 Follow Up Appt 6 months Follow Up Appt 6 months [facility] Work Phone: Start: 10-23-2016 End: 10-23-2016 PFM PFM [facility] Work Phone: Start: 04-26-2016 End: 04-26-2016 Follow Up Appt 6 months Follow Up Appt 6 months [facility] Work Phone: Start: 04-26-2016 End: 04-26-2016 MMM MMM [facility] Work Phone: Start: 11-11-2015 End: 11-11-2015 Ecg routine ecg w/least 12 lds w/i&r EKG (In office) [facility] Work Phone: Start: 11-11-2015 End: 11-11-2015 Follow Up Appt 6 months Follow Up Appt 6 months [facility] Work Phone: Start: 11-11-2015 End: 11-11-2015 Follow Up Appt Other Follow Up Appt Other [facility] Work Phone: Start: 11-11-2015 End: 11-11-2015 PFM PFM [facility] Work Phone: Start: 04-26-2015 End: 04-26-2015 Follow Up Appt 6 months Follow Up Appt 6 months [facility] Work Phone: Start: 04-26-2015 End: 04-26-2015 MMM MMM [facility] Work Phone: Start: 10-21-2014 End: 10-26-2015 Follow Up Appt 6 months Follow Up Appt 6 months [facility] Work Phone: Start: 10-21-2014 End: 10-26-2015 PFM PFM [facility] Work Phone: Start: 04-22-2014 End: 04-22-2014 Ecg routine ecg w/least 12 lds w/i&r EKG (In office) [facility] Work Phone: Start: 04-22-2014 End: 04-22-2014 Follow Up Appt 6 months Follow Up Appt 6 months [facility] Work Phone: Start: 04-22-2014 End: 10-26-2015 Follow Up Appt Other Follow Up Appt Other [facility] Work Phone: Start: 04-22-2014 End: 04-22-2014 MMM MMM [facility] Work Phone: Start: 10-14-2013 End: 10-14-2013 Follow Up Appt 6 months Follow Up Appt 6 months [facility] Work Phone: Start: 10-14-2013 End: 10-14-2013 PFM PFM [facility] Work Phone: Start: 04-11-2013 End: 04-11-2013 Follow Up Appt 6 months Follow Up Appt 6 months [facility] Work Phone: Start: 04-11-2013 End: 04-11-2013 MMM MMM [facility] Work Phone: Start: 01-09-2013 End: 01-15-2013 *BMP *BMP [facility] Work Phone: Start: 01-09-2013 End: 01-09-2013 *CBC with Differential *CBC with Differential [facility] Work Phone: Start: 01-09-2013 End: 01-15-2013 Chest x-ray X-Ray, Chest, PA & Lateral [facility] Work Phone: Start: 01-09-2013 End: 01-09-2013 Ecg routine ecg w/least 12 lds w/i&r EKG (In office) [facility] Work Phone: Start: 01-09-2013 End: 01-09-2013 Follow Up Appt 3 months Follow Up Appt 3 months [facility] Work Phone: Start: 01-09-2013 End: 01-09-2013 Left Heart Cath Left Heart Cath [facility] Work Phone: Start: 01-09-2013 End: 01-09-2013 PFM PFM [facility] Work Phone: Start: 01-09-2013 End: 01-15-2013 T4 [Mass/Vol] *T4 (Total) [facility] Work Phone: Start: 01-09-2013 End: 01-15-2013 TSH Qn *TSH [facility] Work Phone: 24 Hour ECG [facility] Catheterization of l eft heart [facility] Radionuclide imaging of perfusion of myocardium under exercise stress [facility] Payers Date Payer Category Payer Self-pay [id number] 2020 Private Health Insurance 101 [id number] 2009 Medicare MEDICARE PART A B [id number] 2009 Unknown SHARAD [id number] Unknown [id number] Unknown [id number] Unknown [id number] Unknown [id number] Unknown [id number] Unknown [id number] Unknown [id number] Unknown [id number] Unknown [id number] Unknown [id number] Social History Date Type Detail Facility Start: 01-23-2022 End: 03-16-2023 Tobacco smoking status DEIS Unknown if ever smoked [facility] Start: 1945 Sex Assigned At Female W [facility] Start: 11-15-2023 Tobacco smoking stat us DEIS Never smoked tobacco (finding) [facility] Evaluation note 12-30-2024 Note Date & Type Note Facility 12-30-2024 Evaluation note Diagnosis Onset Date Resolution Mixed hyperlipidemia acute December 30, 2024 12:50pm Atherosclerotic heart disease of [place] coronary artery without angina pectoris chronic December 30, 2024 12:50pm Essential hypertension chronic Ju ly 2024 12:50pm Ventricular tachyarrhythmia chronic December 30, 2024 12:50pm [facility] Work Phone: Evaluation note Note Date & Type Note Facility Evaluation note Diagnosis Onset Date Mixed hyperlipidemia acute Atherosclerotic heart diseas e of [place] coronary artery without angina pectoris chronic Essential hypertension chron ic Ventricular tachyarrhythmia [facility] Work Phone: Evaluation note Note Date & Type Note Facility Evaluation note No assessment information availa ble [facility] Work Phone: Evaluation note Note Date & Type Note Facility Evaluation note Diagnosis Onset Date Resolution Mixed hyperlipidemia acute December 30, 2024 12:50pm Atherosclerotic heart disease of [place] coronary artery without angina pectoris chronic December 30, 2024 12:50pm Essential hypertension chronic Ju ly 2024 12:50pm Ventricular tachyarrhythmia chronic December 30, 2024 12:50pm [facility] Work Phone: Reason for referral (narrative) Note Date & Type Note Facility Reason for referral (narrative) No reason for referral information available [facility] Work Phone: Chief Complaint and Reason for Visit Chief Complaint Admit Date SEE NOTES IN MAILBOX December 30, 2024 12: 50pm DYSPNEA ON EXERTION January 02, 2025 8:10 am Reason for Visit Admit Date Mixed hyperlipidemia December 30, 2024 12: 50pm Atherosclerotic heart diseas e of [place] coronary artery without angina pectoris December 30, 2024 12:50pm Essential hypertension December 30, 2024 1 2:50pm Ventricular tachyarrhythmia December 30, 12:50pm Chief Complaint 1 Y FU Reason for Visit Mixed hyperlipidemia Atherosclerotic heart disease of [place] coronary artery without angina pectoris Essential hypertension Ventricular tachyarrhythmia Chief Complaint 1 Y FU SCREENING Reason for Visit Mixed hyperlipidemia Atherosclerotic heart disease of [place] coronary artery without angina pectoris Essential hypertension Ventricular tachyarrhythmia Chief Complaint SCREENING 1 Y FU Reason for Visit Mixed hyperlipidemia Atherosclerotic heart disease of [place] coronary artery without angina pectoris Essential hypertension Ventricular tachyarrhythmia Chief Complaint Admit Date SEE NOTES IN MAILBOX December 30, 2024 12: 50pm Chief Complaint Admit Date SEE NOTES IN MAILBOX December 30, 2024 12: 50pm DYSPNEA ON EXERTION January 02, 2025 8:10 am ROUTINE January 02, 2025 8:31 am Family History No Family History Records Found Relationship Condition Age at Onset Recorded Date/T camille mother Coronary artery disease Unknown Malignant neoplasm Unknown grandmother Cerebrovascular accident (CVA) Unknown grandfather Cerebrovascular accident (CVA) Unknown brother Cardiac disease Unknown Coronary artery disease Unknown Myocardial infarction Unknown sister Coronary artery disease Unknown son Malignant neoplasm Unknown Advance Directives No Advanced Directives Records Found Advance Directive Response Recorded Date/ Time Advance Directives Yes August 14 8:03am Living Will Yes February 17 11:41am Power of Washing Machine Operator Yes February 18, 2020 11:41am Advance Directive Response Recorded Date/ Time Advance Directives Yes August 14 7:03am Living Will Yes February 17 10:41am Power of Washing Machine Operator Yes February 18, 2020 10:41am Advance Directive Response Recorded Date/ Time Advance Directives Yes August 14 8:03am Summary Purpose Additional Source Comments Goals (unrecognized section and content) Goals may be documented in a n alternate sectionGoals may be documented in an alternate sectionGoals may be documented in an alternate sectionGoals may be documented in an alternate sectionGoals may be documented in an alternate sectionGoals may be documented in an alternate sectionGoals may be documented in an alternate sectionGoals may be documented in an alternate sectionGoals may be documented in an alternate sectionGoals may be documented in an alternate section Care Teams (unrecognized sec tion and content) Team Status: Active Member Role Status Dates Dr. Nitin Blair MD Family Provider Active Dr. Nitin Blair MD Primary Care Provider Active Team Status: Inactive Member Role Status Dates Dr. Nitin Blair MD Primary Care Provi amaris, Attending Provider, Referring Provider Active Team Status: Inactive Member Role Status Dates Dr. Nitin Blair MD Primary Care Provider, Referring Provider Active Shawna Henriquez ECHOCARDIOGRAPHY TECH, ECHOCARDIOGRAPHY TECH-C Attending Provider Active Team Status: Inactive Member Role Status Dates Dr. Nitin Blair MD Primary Care Provider, Attending Provider Active Team Status: Active Member Role/Relationship Status Dates Dr. Nitin Blair MD Family Provider Active Dr. Nitin Blair MD Primary Care Provider Active Team Status: Active Member Role/Relationship Status Dates Dr. Nitin Blair MD Primary Care Provider Active Start: December 25, 2024 Dr. Nitin Blair MD Attending Provider Active Start: December 25, 2024 Dr. Nitin Blair MD Referring Provider Active Start: December 25, 2024 Team Status: Active Member Role/Relationship Status Dates Dr. Nitin Blair MD Primary Care Provider Active Start: December 29, 2024 Dr. Nitin Blair MD Attending Provider Active Start: December 29, 2024 Dr. Nitin Blair MD Referring Provider Active Start: December 29, 2024 Team Status: Inactive Member Role/Relationship Status Dates Dr. Nitin Blair MD Primary Care Provider Active Start: December 30, 2024 End: December 30, 2024 Dr. Nitin Blair MD Referring Provider Active Start: December 30, 2024 End: December 30, 2024 Marisela Bernardo PA, PA Attending Provider Active Start: December 30, 2024 End: December 30, 2024 Team Status: Inactive Member Role/Relationship Status Dates Dr. Nitin Blair MD Primary Care Provider Active Start: December 25, 2024 End: December 25, 2024 Dr. Nitin Blair MD Attending Provider Active Start: December 25, 2024 End: December 25, 2024 Dr. Nitin Blair MD Referring Provider Active Start: December 25, 2024 End: December 25, 2024 Team Status: Active Member Role/Relationship Status Dates Dr. Nitin Blair MD Primary Care Provider Active Team Status: Inactive Member Role/Relationship Status Dates Dr. Nitin Blair MD Primary Care Provider Active Start: December 29, 2024 End: December 29, 2024 Dr. Nitin Blair MD Attending Provider Active Start: December 29, 2024 End: December 29, 2024 Dr. Nitin Blair MD Referring Provider Active Start: December 29, 2024 End: December 29, 2024 Team Status: Active Member Role/Relationship Status Dates Dr. Nitin Blair MD Primary Care Provider Active Start: January 02, 2025 Marisela MERRITT PA Attending Provider Active Start: January 02, 2025 Marisela MERRITT PA Referring Provider Active Start: January 02, 2025 Team Status: Inactive Member Role/Relationship Status Dates Dr. Nitin Blair MD Primary Care Provider Active Start: January 02, 2025 End: January 02, 2025 Marisela MERRITT PA Attending Provider Active Start: January 02, 2025 End: January 02, 2025 Marisela MERRITT PA Referring Provider Active Start: January 02, 2025 End: January 02, 2025 Team Status: Active Member Role/Relationship Status Dates Dr. Nitin Blair MD Primary Care Provider Active Start: January 02, 2025 Dr. Nitin Blair MD Referring Provider Active Start: January 02, 2025 Dr. Theo Hernandez MD Attending Provider Active S tart: January 02, 2025 INFORMATION SOURCE (unrecogn ized section and content) DATE CREATED AUTHOR 01/16/2025 [facility] FOR RECORDS PERTAINING TO PATIENTS WHO ARE OR HAVE BEEN ENROLLED IN A CHEMICAL DEPENDENCY/SUBSTANCEABUSE PROGRAM, SOME INFORMATION MAY BE OMITTED. This clinical summary was aggregated from multiple sources. Caution should be exercised in using it in the provision of clinical care. This summary normalizes information from multiple sources, and as a consequence, information in this document may materially change the coding, format and clinical context of patient data. In addition, data may be omitted in some cases. CLINICAL DECISIONS SHOULD BE BASED ON THE PRIMARY CLINICAL RECORDS. [employer] provides no warranty or guarantee of the accuracy or completeness of information in this document.
--- NOTE | 2025-01-23 06:39 | ECHOD_ITS ---
Reason For Study Reason For Study: Arrhythmia Procedure This was a 2D Doppler, Color Flow transthoracic echocardiogram. Exam performed in department. Left Ventricle Normal LV size. Mild concentric left ventricular hypertrophy. The left ventricular ejection fraction is 65 %. No regional wall motion abnormalities noted. Right Ventricle Normal RV size. Normal systolic function. Atria Normal left atrium. Normal right atrium. Mitral Valve There is moderate mitral annular calcification. Mild (1+) eccentric mitral valve insufficiency. Tricuspid Valve Normal tricuspid valve. Mild to moderate (1-2+) tricuspid valve insufficiency. Pulmonary artery systolic pressure is 30 mmHg. Aortic Valve Trisinus/trileaflet aortic valve. Pulmonic Valve Normal pulmonic valve. Great Vessels Normal aortic root. The pulmonary artery is normal size. Inferior vena cava collapse with respiration. Pericardium/Pleural No pericardial effusion. MMode/2D Measurements & Calculations LVIDd: 3.7 cm IVSd: 1.2 cm Ao root diam: 3.1 cm LVIDs: 2.1 cm LVPWd: 1.2 cm RVDd: 3.1 cm FS: 42.9 % LAV(MOD-bp): 47.4 ml LVAd ap4: 20.6 cm2 LVAd ap2: 23.1 cm2 LAV(MOD-bp) Indexed: 27.8 ml/m2 LVLd ap4: 6.6 cm LVLd ap2: 7.0 cm LAV(MOD-sp2): 43.8 ml EDV(MOD-sp4): 53.1 ml EDV(MOD-sp2): 62.6 ml LAV(MOD-sp4): 52.9 ml EDV(sp4-el): 54.9 ml EDV(sp2-el): 64.6 ml LVAs ap4: 12.5 cm2 LVAs ap2: 11.4 cm2 LVLs ap4: 5.9 cm LVLs ap2: 6.1 cm ESV(MOD-sp4): 21.6 ml ESV(MOD-sp2): 18.6 ml ESV(sp4-el): 22.6 ml ESV(sp2-el): 18.3 ml EF(MOD-sp4): 59.2 % EF(MOD-sp2): 70.3 % EF(sp4-el): 58.9 % SV(MOD-sp4): 31.4 ml SV(MOD-sp2): 44.0 ml SV(sp4-el): 32.3 ml SI(MOD-sp4): 18.4 ml/m2 SI(MOD-sp2): 25.8 ml/m2 LA A4 area: 18.8 cm2 LA dimension(2D): 3.6 cm RA A4 area: 10.1 cm2 TAPSE: 1.7 cm Time Measurements MV dec time: 0.19 sec Doppler Measurements & Calculations MV E max deion: 90.6 cm/sec Lat Peak E' Deion: 8.4 cm/sec Med Peak E' Deion: 7.7 cm/sec MV A max deion: 56.7 cm/sec E/E' lat: 10.8 E/E' med: 11.7 MV E/A: 1.6 Ao V2 max: 105.8 cm/sec LV V1 max: 89.6 cm/sec MV dec slope: 484.0 cm/sec2 Ao max P.5 mmHg LV V1 max P.2 mmHg PA V2 max: 82.7 cm/sec TR max deion: 262.5 cm/sec TR max P.6 mmHg ECHO/Echo Complete Interpretation Summary The left ventricular ejection fraction is 65 %. Normal LV size. Mild to moderate (1-2+) tricuspid valve insufficiency. There is moderate mitral annular calcification. Ordering Physician: Marisela Bernardo Referring Physician: Nitin Blair Performed By: Darling Robles RDCS
--- NOTE | 2025-01-23 18:34 | STRESSREP ---
Stress Test Report Exercise myocardial perfusion stress test. 79-year-old with a history of dyspnea and PVCs. Stress protocol: Resting EKG demonstrates normal sinus rhythm with a rate of 61 bpm resting blood pressure is 130/70 mmHg. The patient exercised according to the regular Miguelangel protocol for a total duration of 4 minutes and 15 seconds attaining a maximum heart rate of 164 bpm which was 117% of maximum predicted heart rate; the maximum workload was 7 metabolic equivalents. At rest there were no ST or T wave changes noted to suggest ischemia and at peak exercise [address] depression were noted in leads II, III and aVF and V5 and V6. Above changes suggestive of ischemia. No clinical angina was noted the test was terminated due to the target heart rate being achieved/fatigue. The peak blood pressure was 158/72 mmHg. Rate-pressure product was 18,000. Myocardial perfusion protocol. 10.6 mCi of technetium 99m sestamibi was injected at rest. The patient exercised according to regular Miguelangel protocol for total duration of 4 minutes and 15 seconds and at peak exercise 32.8 mCi of technetium 99m sestamibi was injected stress images were obtained stress and rest images were reconstructed in comparing the short axis vertical long and horizontal long axis. Gated images were also obtained. Perfusion SPECT analysis: Review of the stress images demonstrate normal uptake of tracer noted in all areas of the myocardium. The resting images similarly demonstrate normal uptake of tracer noted in all areas of the myocardium. No areas of reversibility are noted to suggest ischemia no previous infarct was noted. Gated SPECT analysis: The gated ejection fraction is normal %. Conclusion: Normal exercise myocardial perfusion stress test EKG changes noted which were not different from prior EKG .
== END | disposition home or self-care (01) ==
PROVIDERS: PCP Family Medicine; Referring Provider Physician Assistant Medical; Visit Provider Physician Assistant Medical
DX: R00.2 Palpitations (principal); R06.09 Other forms of dyspnea; R93.89 Abnormal findings on diagnostic imaging of other specified body structures; I49.3 Ventricular premature depolarization
CPT/HCPCS: 78452; 93017; 93306; A9500; A4216

== ENCOUNTER → 2025-03-19 | Outpatient (CLI) | payer MEDICARE, SELFPAY ==
[2025-03-19 11:05] LABS: Anion Gap 10 (5-15); BUN 21 mg/dL (4-19); BUN/Creat Ratio 21.1 RATIO (10-20); Calcium,Total 8.9 mg/dL (7.6-11.0); Carbon Dioxide 25.5 mmol/L (21.0-32.0); Chloride 102 mmol/L (98-108); Glucose 91 mg/dL (70-99); Potassium 3.9 mmol/L (3.3-5.1)
== END | disposition home or self-care (01) ==
LOC: MTLAB 07:16
PROVIDERS: PCP Family Medicine; Referring Provider Physician Assistant Medical; Visit Provider Physician Assistant Medical
DX: I10 Essential (primary) hypertension (principal); I47.29 Other ventricular tachycardia; I25.10 Atherosclerotic heart disease of native coronary artery without angina pectoris
CPT/HCPCS: 36415; 80048

== ENCOUNTER → 2025-04-02 | Outpatient (CLI) | payer MEDICARE, SELFPAY ==
[2025-04-02 11:02] LABS: Cholesterol 143 mg/dL (<=200); Low Density Lipoprotein Calc. 74 mg/dL; Triglycerides 72 mg/dL; Very Low Density Lipoprotein 14 mg/dL (5-40); cholesterol:hdl ratio screen 2.61
[2025-04-02 11:18] LABS: AST(SGOT) 18 U/L (<=31); Alanine Aminotransfer ALT/SGPT 13 U/L (<=34); Albumin, Serum 4.1 g/dL (3.4-4.8); Alkaline Phosphatase 45 U/L (35-104); Anion Gap 11 (5-15); BUN 26 mg/dL (4-19); BUN/Creat Ratio 27.1 RATIO (10-20); Calcium,Total 9.3 mg/dL (7.6-11.0); Carbon Dioxide 26.2 mmol/L (21.0-32.0); Chloride 103 mmol/L (98-108); Globulin 3.0 g/dL (2.2-4.2); Glucose 110 mg/dL (70-99); Potassium 3.9 mmol/L (3.3-5.1)
== END | disposition home or self-care (01) ==
PROVIDERS: PCP Family Medicine; Referring Provider Family Medicine; Visit Provider Family Medicine
DX: E11.9 Type 2 diabetes mellitus without complications (principal)
CPT/HCPCS: 36415; 80053; 80061

== ENCOUNTER 2025-04-13 10:05 | Emergency (ER) | payer MEDICARE, SELFPAY ==
[2025-04-13 10:05] VITALS: BP 144/71; PULSE 78; RESP 16; TEMP 36.8; O2SAT 100; BMI 24.7
--- NOTE | 2025-04-13 10:47 | ED.RN ---
Pt denies need for ice packs at this time
--- NOTE | 2025-04-13 11:10 | RAD_ITS ---
PROCEDURE: RAD/Knee 4 or More Views
--- NOTE | 2025-04-13 11:10 | RAD_ITS ---
PROCEDURE: RAD/Knee 4 or More Views
--- NOTE | 2025-04-13 11:10 | RAD_ITS ---
PROCEDURE: RAD/HIP, UNI W/ Pelvis 2-3 Views
--- NOTE | 2025-04-13 11:15 | EX.ED.GENINJ ---
HPI History of Present Illness Chief Complaint: Fall Informant: patient and family Narrative Narrative: 79-year-old female presenting to the emergency room for the evaluation of fall. Patient states that last night she missed a step going out to her family's garage to put away ice cream. She landed on the bilateral knees and twisted also injuring the left hip. She was able to get up and ambulate. She notes abrasions and contusions to the bilateral knees and soreness to the left hip. She also notes some low back pain which she states is normal for her. She denies striking her head or having any neck injury. She has been able to ambulate. [facility] Medical History Fracture of proximal phalanx of left little finger Fracture of fifth metatarsal bone of left foot Essential hypertension Abnormal stress test Chest discomfort Abnormal myocardial perfusion study Ventricular tachyarrhythmia CAD in [place] artery Diabetes mellitus Atherosclerotic heart disease of [place] coronary artery without angina pectoris Home Medications ?Medication ?Instructions ?Recorded ?Last Taken ?Type metformin 1,000 mg tablet 1,000 mg PO BID 90 days #180 tabs 07/15/18 Unknown History pravastatin 40 mg tablet 40 mg PO DAILY 90 days #90 tabs 08/26/18 Unknown History cholecalciferol (vitamin D3) 125 125 mcg PO DAILY 08/01/19 Unknown History mcg (5,000 unit) capsule dapagliflozin propanediol 5 mg 5 mg PO DAILY 08/01/19 Unknown History tablet (Farxiga) esomeprazole magnesium 20 mg 20 mg PO DAILY 08/01/19 Unknown History capsule,delayed release (Nexium) nvofgiu-kyxwemrilkeif-aghfnhjm 250 1 tab PO DAILY PRN 01/23/22 Unknown History mg-250 mg-65 mg tablet (Excedrin Extra Strength) calcium acetate PO QDAY 03/18/24 Unknown History insulin glargine 100 unit/mL (3 15 unit subcut DAILY 03/18/24 Unknown History mL) subcutaneous pen (Basaglar KwikPen U-100 Insulin) losartan 100 mg tablet 100 mg PO QDAY 12/30/24 Unknown History metoprolol succinate 25 mg 25 mg PO QDAY 12/30/24 Unknown History tablet,extended release 24 hr spironolactone 25 mg tablet 25 mg PO DAILY #90 tabs 03/06/25 Unknown Rx Allergy/AdvReac Type Severity Reaction Status Date / Time exenatide (From By[place]) AdvReac Severe hives, Verified 04/13/25 10:05 nausea, vomiting codeine AdvReac Intermediate Vomiting Verified 04/13/25 10:05 liraglutide (From Victoza) AdvReac Intermediate Nausea,vomi Verified 04/13/25 10:05 ting Family History Mother CAD (coronary artery disease) Hx CABG Cancer Lung cancer Grandmother CVA (cerebral vascular accident) Grandfather CVA (cerebral vascular accident) Brother Heart disease CAD (coronary artery disease) Hx CABG Myocardial infarction Cancer pancreas, stomach Sister CAD (coronary artery disease) Cancer breast Son , age 53 Cancer lung Surgical History History of bladder repair surgery History of partial colectomy History of fusion of cervical spine History of carpal tunnel surgery of right wrist Hx of cholecystectomy History of hysterectomy History of appendectomy Social History Smoking Status: Never smoker alcohol intake: never substance use type: does not use caffeine: Yes Type: coffee Number of servings: 1 what type of physical activity do you participate in: none seatbelt use: always do you feel safe at home: Yes ROS ROS ED Constitutional Constitutional ED: Reports weight loss; Denies chills or fever(s) Eyes Eyes: Denies change in vision or diplopia ENT ENT ED: Denies ear pain, rhinorrhea or sore throat Cardiovascular Cardiovascular: Denies chest pain, orthopnea, palpitations or racing heartbeat Respiratory/Chest Respiratory/Chest: Denies cough, dyspnea or orthopnea Gastrointestinal Gastrointestinal: Denies abdominal pain, diarrhea, nausea or vomiting Genitourinary Genitourinary ED: Denies dysuria, hematuria or urinary frequency Musculoskeletal Musculoskeletal: Reports back pain and other Details: See history of present illness ; Denies arthralgias, myalgias or neck pain Integumentary Reports Abrasions; Denies abscess or rash Neurologic Neurologic: Denies headache(s), paresthesias or weakness Psychiatric Psychiatric: Denies anxiety, depression, suicidal ideation or suicidal thoughts Endocrine Endocrinology: Denies polydipsia, polyphagia or polyuria Allergic/Immunologic Allergic/Immunologic ED: Denies mouth swelling, tongue swelling or urticaria EXAM Physical Exam Const Vital Signs: 04/13/25 10:05 04/13/25 10:27 04/13/25 12:49 Temperature 98.3 F Temperature Source Oral Pulse Rate 78 68 Respiratory Rate 16 16 Respiratory Effort Normal Respiratory Depth Normal Respiratory Pattern Normal Blood Pressure 144/71 H 107/60 Blood Pressure Mean 95 75 Pulse Ox 100 100 Oxygen Delivery Method Room Air Room Air Room Air Positive well nourished and well developed General Appearance ED: well developed and NAD HEENT Reports normocephalic, head/scalp atraumatic and moist mucous membranes Eyes PERRL and EOMs intact bilaterally Neck no lymphadenopathy, supple and no JVD Resp normal respiratory effort and clear to auscultation bilaterally Cardio regular rate, regular rhythm and no murmurs GI normal to inspection, nondistended, normoactive bowel sounds and non-tender Palpation: soft Back/Spine no CVA tenderness and normal ROM Extremity Extremity Narrative: Tenderness to palpation ecchymosis and abrasions to the bilateral anterior knees. Mild tenderness to palpation over the lateral left hip. No contusion noted there. Extensor mechanism is intact. Ligaments appear stable General Extremety ED: Negative for edema General Extremity: Negative for edema Neuro oriented x3 and CN's II-XII intact bilaterally Sensorium / Orientation: alert Motor Exam: strength 5/5 throughout Psych mental status grossly normal Mood & Affect: Negative for depressed or tearful Skin no rashes or lesions noted and no wounds MDM MDM MDM Narrative Medical decision making narrative: Differential diagnosis includes but not limited to contusion fracture ligamentous injury joint effusion abrasion tendon injury My independent interpretation of the bilateral knee films is no acute fracture. There is a linear lucency in the intercondylar eminences on the left knee film possibly correlating with a tibial plateau fracture. Therefore a CT of the knee was obtained which does not demonstrate acute fracture. Patient will be treated conservatively at home is to expect soreness would recommend Tylenol ice and rest. Return if worsening or concerns or follow-up with primary care if not improving History & Record Review Discussion w/independent historian: Patient and Significant other Radiography Diagnostic Testing: Clinical Impression(s) from Imaging Studies Hip/Pelvis X-Ray 04/13/25 11:10 IMPRESSION: Prominent degenerative changes are seen of the visualized lower lumbar spine. Minimal sacroiliac joint degenerative changes are noted. The bilateral hip joints show mild degenerative changes, without associated joint narrowing. No evidence of femoral head osteonecrosis. No acute fracture or dislocation is seen. If clinical concern persists, short-term follow-up imaging may be obtained to rule out a currently occult fracture. Reading Location: [place] [address] Knee X-Ray 04/13/25 11:10 IMPRESSION: No significant joint effusion is seen on either side. On the right, mild degenerative changes are most apparent at the medial and patellofemoral compartments. At least mild patellofemoral joint narrowing is also noted. No acute fracture or dislocation is seen. If clinical concern persists, short-term follow-up imaging may be obtained to rule out a currently occult fracture. On the left, on frontal imaging, a linear lucency is seen between the intercondylar eminences. This may represent a chronic process or normal variant, but cannot exclude a nondisplaced fracture of the tibial plateau. Further imaging may be obtained if and as clinically appropriate. Otherwise, on the left, mild degenerative changes are most apparent at the patellofemoral and medial compartments. Probable mild joint space narrowing of both medial compartment and patellofemoral compartments, as well. Reading Location: [place] [address] Knee X-Ray 04/13/25 11:10 IMPRESSION: No significant joint effusion is seen on either side. On the right, mild degenerative changes are most apparent at the medial and patellofemoral compartments. At least mild patellofemoral joint narrowing is also noted. No acute fracture or dislocation is seen. If clinical concern persists, short-term follow-up imaging may be obtained to rule out a currently occult fracture. On the left, on frontal imaging, a linear lucency is seen between the intercondylar eminences. This may represent a chronic process or normal variant, but cannot exclude a nondisplaced fracture of the tibial plateau. Further imaging may be obtained if and as clinically appropriate. Otherwise, on the left, mild degenerative changes are most apparent at the patellofemoral and medial compartments. Probable mild joint space narrowing of both medial compartment and patellofemoral compartments, as well. Reading Location: [place] [address] 04/13/25 12:10 IMPRESSION: 1. No fracture site is seen. 2. Additional findings as noted. Reading Location: [place] [address] Discharge Plan Triage Chief Complaint: Fall ED Provider: Antoni Cotton Dx/Rx/DC Orders Clinical Impression: Fall, Contusion of knee, Contusion of hip Prescriptions: No Action metformin 1,000 mg tablet 1,000 mg PO BID 90 Days Qty: 180 Patient Comments: pravastatin 40 mg tablet 40 mg PO DAILY 90 Days Qty: 90 Patient Comments: Farxiga 5 mg tablet 5 mg PO DAILY esomeprazole magnesium [Nexium] 20 mg capsule,delayed release(DR/EC) 20 mg PO DAILY cholecalciferol (vitamin D3) 125 mcg (5,000 unit) capsule 125 mcg PO DAILY Basaglar KwikPen U-100 Insulin 100 unit/mL (3 mL) insulin pen 15 unit SC DAILY Excedrin Extra Strength 250-250-65 mg tablet 1 tab PO DAILY PRN calcium acetate PO QDAY losartan 100 mg tablet 100 mg PO QDAY metoprolol succinate 25 mg tablet extended release 24 hr 25 mg PO QDAY spironolactone 25 mg tablet 25 mg PO DAILY Qty: 90 3RF Primary Care Provider: Nitin Blair Referrals: Nitin Blair MD [Primary Care Provider, Family Practice] - As Needed Print Language: Indonesian Disposition Disposition: Home, Self Care Discharge Date/Time: 04/13/25 12:50
--- NOTE | 2025-04-13 12:10 | CT_ITS ---
PROCEDURE: CT/Extremity Lower without Contra
[2025-04-13 12:49] VITALS: BP 107/60; PULSE 68; RESP 16; O2SAT 100
== END 2025-04-13 12:50 | disposition home or self-care (01) ==
PROVIDERS: Emergency Provider Emergency Medicine; PCP Family Medicine; Visit Provider Emergency Medicine
DX: S70.00XA Contusion of unspecified hip, initial encounter (principal); E11.9 Type 2 diabetes mellitus without complications; Z79.4 Long term (current) use of insulin; I10 Essential (primary) hypertension; I25.10 Atherosclerotic heart disease of native coronary artery without angina pectoris; W10.9XXA Fall (on) (from) unspecified stairs and steps, initial encounter; Y93.89 Activity, other specified; Y92.59 Other trade areas as the place of occurrence of the external cause; Z79.84 Long term (current) use of oral hypoglycemic drugs; Z79.899 Other long term (current) drug therapy; Z90.49 Acquired absence of other specified parts of digestive tract; Z90.710 Acquired absence of both cervix and uterus; S80.00XA Contusion of unspecified knee, initial encounter
CPT/HCPCS: 73502; 73564; 73700; 99282

== ENCOUNTER → 2025-06-02 | Outpatient (CLI) | payer MEDICARE, SELFPAY ==
--- NOTE | 2025-06-02 08:15 | BI_ITS ---
EXAM: SCRN MAMM (CAD)W/BEBO BILAT DATE: 06/02/2025 CLINICAL HISTORY: F, Age 79 y/o , ANNUAL TECHNIQUE: Procedure Code: [id number] Modality: MG Procedure: SCRN MAMM (CAD)W/BEBO BILAT COMPARISON: Prior exam(s) were compared FINDINGS: TISSUE DENSITY: The breasts are heterogeneously dense, which may obscure small masses. Bilateral Breast Mammographic Findings: No significant masses, calcifications or other abnormalities are identified. BI/SCRN MAMM (CAD)W/BEBO BILAT IMPRESSION: No mammographic evidence of malignancy. OVERALL FINAL ASSESSMENT BI-RADS 1: NEGATIVE. RECOMMENDATION: Routine annual follow-up in 1 Year Additional Recommendation none A letter with findings and recommendations will be mailed to the patient. Reading Location: [id number]
--- OUTSIDE RECORDS SUMMARY | 2025-06-02 08:32 | XMS RPT_ITS | CCD ---
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 Nitin Blair Primary Care Provider Dr. Nitin Blair Referring Provider Dr. Nitin Rodriguez Attending Provider Dr. Nitin Blair Primary Care Provider Dr. Nitin Blair Referring Provider Martinez BECKETT, ISAC Matos Attending Provider Dr. Nitin Blair MD Primary Care Provider Dr. Nitin Blair MD Attending Provider Dr. Nitin Blair MD Referring Provider Marisela Staton Attending Provider Marisela Staton Referring Provider Dr. Theo Hernandez MD Attending Provider Marisela Staton Other Provider Dr. Nitin Blair MD Primary Care Physician Dr. Nitin Blair MD Attending Physician Marisela Staton Attending Physician Dr. Theo Hernandez MD Attending Physician Marisela Staton Nurse Practitioner Nitin Blair Primary Care Unavailable Theo Hernandez Attending Unavailable Nicholas Dominguez Attending Unavailable Nitin Blair Primary Care Unavailable Nitin Blair Referring Unavailable Blair, Nitin Primary Care Unavailable Blair, Nitin Referring Unavailable Marisela Staton Attending Unavail able Blair, Nitin Primary Care Unavailable Marisela Staton Referring Unavail able Marisela Staton Attending Unavail able Blair, Nitin Primary Care Unavailable Blair, Nitin Referring Unavailable Blair, Nitin Attending Unavailable Blair, Nitin Primary Care Unavailable Blair, Nitin Referring Unavailable David, Theo Attending Unavailable Blair, Nitin Attending Unavailable Blair, Nitin Primary Care Unavailable Blair, Nitin Referring Unavailable Antoni Cotton Attending Unavailable Blair, Nitin Primary Care Unavailable Blair, Nitin Primary Care Unavailable Blair, Nitin Referring Unavailable Blair, Nitin Attending Unavailable Blair, Nitin Primary Care Unavailable Blair, Nitin Referring Unavailable Blair, Nitin Attending Unavailable Blair, Nitin Primary Care Unavailable Blair, Nitin Referring Unavailable Blair, Nitin Attending Unavailable Blair, Nitin Primary Care Unavailable Blair, Nitin Referring Unavailable Marisela Staton Attending Unavail able Blair, Nitin Primary Care Unavailable Marisela Staton Attending Unavail able Marisela Staton Consulting Unavail able Marisela Staton Referring Unavail able Blair, Nitin Primary Care Unavailable Marisela Staton Referring Unavail able Marisela Staton Attending Unavail able Marisela Staton Consulting Unavail able Johnnie, Nitin Primary Care Unavailable Marisela Staton Referring Unavail able David, [place] Attending Unavailable Allergies Allergy Classification Reported Allergen(s) Allergy Type Date of Onset Reaction(s) Facility (14 sources) Codeine; Translations: [codeine] Drug Allergy 3 vomiting [facility] Work Phone: (1 source) exenatide Drug Allergy 3 hives, nausea, vomitting [facility] Work Phone: (1 source) liraglutide Drug Allergy 3 nausea & vomitting [facility] Work Phone: (12 sources) exenatide Drug Allergy 2 hives, nausea, vomiting [facility] (12 sources) liraglutide Drug Allergy 2 Nausea,vomiting [facility] (1 source) exenatide Drug Allergy 5 [facility] (1 source) liraglutide Drug Allergy [facility] Medications Current Medications Medication Drug Class(es) Dates Sig (Normalized) Sig (Original) acetaminophen 250 mg / aspirin 250 mg / caffeine 65 mg oral tablet (12 sources) Platelet Aggregation Inhibitor, Nonsteroidal Anti-inflammatory Drug, Central Nervous System Stimulant, Methylxanthine Start: 01-23-2022 Aspirin-Acetamin ophen-Caffeine (Excedrin Extra Strength) 250-250-65 mg tablet Active 1 {tbl} PO DAILY as needed January 23, 2022 12:00am Complies with drug therapy calcium acetate (6 sources) Start: 03-18-2024 calcium acetate Active PO daily March 18, 2024 12:00am Complies with drug therapy Start: 03-18-2024 calcium acetat e Active PO daily March 18, 2024 12:00am cholecalciferol 0.125 mg oral capsule (20 sources) Vitamin D Start: 08-01-2019 take 1 capsule by mouth once daily Cholecalciferol (Vitamin D3) 125 mcg (5,000 unit) capsule Active 125 ug PO DAILY August 01, 2019 1:00am Complies with drug therapy Start: 08-26-2018 End: 08-01-2019 take 1 capsule by mouth once daily Cholecalciferol (Vitamin D3) 2,000 unit capsule Discontinued 2000 U PO DAILY August 26, 2018 12:00am August 01, 2019 11:00am dapagliflozin 5 mg oral tablet (12 sources) Sodium-Glucose Cotransporter 2 Inhibitor Start: 08-01-2019 take 1 tablet by mouth once daily Dapagliflozin Propanediol (Farxiga) 5 mg tablet Active 5 mg PO DAILY August 01, 2019 1:00am Complies with drug therapy esomeprazole 20 mg delayed release oral capsule (12 sources) Proton Pump Inhibitor Start: 08-01-2019 take 1 capsule by mouth once daily Esomeprazole Magnesium (Nexium) 20 mg capsule,delayed release(DR/EC) Active 20 mg PO DAILY August 01, 2019 1:00am Complies with drug therapy 3 ml insulin glargine 100 unt/ml pen injector (20 sources) Insulin Analog Start: 03-18-2024 Insulin Glargine (Basaglar Kwikpen U-100 Insulin) 100 unit/mL (3 mL) insulin pen Active 15 U SC DAILY March 18, 2024 8:35am Complies with drug therapy Start: 03-16-2023 End: 03-18-2024 Insulin Glargine (Basaglar [...] UNI T/ML SOLN as directed INSULIN GLARGINE [id number] Marisela Bernardo PA-C losartan potassium 100 mg oral tablet (20 sources) Angiotensin 2 Receptor Ethel Start: 12-30-2024 take 1 tablet by mouth once daily Losartan 100 mg tablet Active 100 mg PO daily December 30, 2024 12:00am Complies with drug therapy Start: 11-20-2023 End: 12-30-2024 take 2 tablets [...] One tablet by mouth daily LOSARTAN POTASSIUM [id number] Marisela Bernardo PA-C Start: 10-14-2013 take 1 tablet by mariana th once daily LOSARTAN POTASSIUM 50 MG TABS One tablet by mouth daily LOSARTAN POTASSIUM [id number] Marisela Bernardo PA-C metFORMIN hydrochloride 1000 mg oral tablet (20 sources) Biguanide Start: 05-15-2017 End: 07-15-2018 take 1 tablet by mouth twice daily Metformin 1,000 mg tablet Active 1000 mg PO TWICE A DAY 180 90 0 July 15, 2018 10:07am Complies with drug therapy Start: 05-15-2017 End: 07-15-2018 Metformin 1,000 mg tablet Discontinued PO 90 0 May 15, 2017 1:00am July 15, 2018 10:08am Start: 01-09-2013 take 1 tablet by mariana th twice daily METFORMIN HCL 1000 MG TABS One tablet by mouth twice daily METFORMIN HCL [id number] Eileen Aguirre RN 24 hr metoprolol succinate 25 mg extended release oral tablet (20 sources) beta-Adrenergic Ethel Start: 12-30-2024 take 1 tablet by mouth once daily Metoprolol Succinate 25 mg tablet extended release 24 hr Active 25 mg PO daily December 30, 2024 12:00am Complies with drug therapy Start: 01-23-2022 End: 12-30-2024 take 1 tablet [...] tablet by mouth twice daily METOPROLOL TARTRATE [id number] Janice Fried DISC RULER OPERATOR Multivitamin preparation (6 sources) Start: 08-01-2019 take 1 tablet by mouth once daily Multivitamin Active 1 TABLET PO DAILY August 01, 2019 12:00am Start: 08-01-2019 take 1 tablet by mariana th once daily Multivitamin Active 1 TABLET PO DAILY August 01, 2019 1:00am pravastatin sodium 40 mg oral tablet (20 sources) HMG-CoA Reductase Inhibitor Start: 08-26-2018 take 1 tablet by mouth once daily Pravastatin 40 mg tablet Active 40 mg PO DAILY 90 90 0 August 26, 2018 10:30am Complies with drug therapy Start: 05-15-2017 End: 08-26-2018 Pravastatin 40 mg tablet Discontinued 1 {tbl} PO EVERY OTHER DAY 90 0 May 15, 2017 1:00am August 26, 2018 10:32am Start: 01-09-2013 take 1 tablet by mariana th at bedtime PRAVASTATIN SODIUM 40 MG TABS One tablet by mouth at bedtime. PRAVASTATIN SODIUM [id number] Eileen Aguirre RN spironolactone 25 mg oral tablet (1 source) Aldosterone Antagonist Start: 03-06-2025 take 1 tablet by mouth once daily Spironolactone 25 mg tablet Active 25 mg PO DAILY 90 3 March 06, 2025 12:00am Complies with drug therapy Completed/Discontinued Medications Medication Drug Class(es) Dates Sig (Normalized) Sig (Original) aspirin 81 mg delayed release oral tablet (14 sources) Platelet Aggregation Inhibitor, Nonsteroidal Anti-inflammatory Drug Start: 05-15-2017 End: 03-18-2024 Aspirin (Adult Low Dose Aspirin) 81 mg tablet,delayed release (DR/EC) Discontinued 81 mg PO daily May 15, 2017 1:00am March 18, 2024 8:34am Start: 01-09-2013 take 1 tablet by mariana th once daily ASPIRIN 81 MG CHEW One tablet by mouth daily ASPIRIN [id number] Nitin Rodriguez MD Start: 01-09-2013 take 1 tablet by mariana th once daily ASPIRIN EC 81 MG TBEC One tablet by mouth daily ASPIRIN [id number] Marisela Smith RN calcium carbonate 1500 mg / cholecalciferol 200 unt oral tablet (2 sources) Vitamin D Start: 01-09-2013 End: 04-22-2014 take 1 tablet by mouth once daily CALCIUM + D 600-200 MG-UNIT TABS One tablet by mouth daily CALCIUM CARBONATE-VITAMIN D [id number] Nitin Rodriguez MD canagliflozin 100 mg oral tablet (13 sources) Sodium-Glucose Cotransporter 2 Inhibitor Start: 07-03-2017 End: 08-01-2019 take 1 tablet by mouth once daily Canagliflozin (Invokana) 100 mg tablet Discontinued 100 mg PO daily July 03, 2017 1:00am August 01, 2019 11:00am Start: 04-11-2013 take 1 tablet by mariana th once daily INVOKANA 100 MG TABS One tablet by mouth daily CANAGLIFLOZIN [id number] Marisela Bernardo PA-C cephalexin 500 mg oral capsule (12 sources) Cephalosporin Antibacterial Start: 10-13-2017 End: 07-15-2018 [...] One tablet by mouth daily CETIRIZINE HCL [id number] Nitin oRdriguez MD clopidogrel 75 mg oral tablet (20 [...] TABS One tablet by mouth daily EMPAGLIFLOZIN [id number] Nitin Rodriguez MD glipiZIDE er 5 mg 24 hr extended release oral tablet (13 sources) Sulfonylurea Start: 07-15-2018 End: 01-26-2021 take 1 tablet by mouth once daily Glipizide 5 mg tablet extended release 24hr Discontinued 5 mg PO DAILY July 15, 2018 1:00am January 26, 2021 10:30am Start: 01-09-2013 take 1 tablet by mariana th once daily GLIPIZIDE 5 MG TABS One tablet by mouth daily GLIPIZIDE [id number] Marisela Bernardo PA-C glyBURIDE 5 mg oral tablet (13 sources) Sulfonylurea Start: 05-15-2017 End: 07-15-2018 Glyburide 5 mg tablet Discontinued PO 90 0 May 15, 2017 1:00am July 15, 2018 10:06am Start: 05-15-2017 End: 07-15-2018 Glyburide Discontinued PO 90 May 15, 2017 1:00am July 15, 2018 10:06am Start: 01-09-2013 take 1 tablet by mariana th twice daily GLYBURIDE 5 MG TABS One tablet by mouth twice daily GLYBURIDE [id number] Eileen Aguirre RN lisinopril 10 mg oral tablet (2 sources) Angiotensin Converting Enzyme Inhibitor Start: 01-09-2013 End: 10-23-2016 take 1 tablet by mouth once daily LISINOPRIL 10 MG TABS One tablet by mouth daily LISINOPRIL [id number] Eileen Aguirre RN MULTIPLE VITAMIN (2 sources) Start: 01-09-2013 End: 04-26-2016 take 1 tablet by mouth once daily MULTIVITAMINS TABS One tablet by mouth daily MULTIPLE VITAMIN [id number] Nitin Rodriguez MD Start: 01-09-2013 take 1 tablet by mariana th once daily MULTIVITAMINS TABS One tablet by mouth daily MULTIPLE VITAMIN [id number] Nitin Rodriguez MD Multivitamin tablet (6 sources) Start: 08-01-2019 End: 12-30-2024 Multivitamin tablet Discontinued 1 {tbl} PO DAILY August 01, 2019 1:00am December 30, 2024 1:00pm nitroglycerin 0.4 mg sublingual tablet (12 sources) Nitrate Vasodilator Start: 08-12-2018 End: 11-20-2023 [...] One tablet by mouth daily OMEPRAZOLE MAGNESIUM [id number] Nitin Rodriguez MD potassium chloride 20 meq extended release oral tablet (12 sources) Start: 01-23-2022 End: 03-06-2025 take 1 tablet by mouth once daily Potassium Chloride 20 mEq tablet extended release Discontinued 20 meq PO DAILY January 23, 2022 12:00am March 06, 2025 9:02am SITagliptin 100 mg oral tablet (13 sources) Dipeptidyl Peptidase 4 Inhibitor Start: 05-15-2017 End: 08-01-2017 Sitagliptin Phosphate 100 mg tablet Discontinued PO 30 May 15, 2017 1:00am August 01, 2017 12:38pm Start: 05-15-2017 End: 08-01-2017 Sitagliptin Phosphate Discon tinued PO May 15, 2017 1:00am August 01, 2017 12:38pm Start: 04-11-2013 take 1 tablet by mariana th once daily JANUVIA 100 MG TABS One tablet by mouth daily SITAGLIPTIN PHOSPHATE [id number] Nitin Rodriguez MD valsartan 160 mg oral tablet (2 sources) Angiotensin 2 Receptor Ethel Start: 01-09-2013 End: 10-14-2013 take 1 tablet by mouth once daily DIOVAN 160 MG TABS One tablet by mouth daily VALSARTAN [id number] Marisela Bernardo PA-C Problems Active Problems Problem Classification Problem Date Documented Date Episodic/Chronic Cardiac dysrhythmias (20 sources) Ventricular tachycardia; Translations: [Ventricular tachycardia] Onset: 01-09-2013 01-09-2013 Chronic Cardiac dysrhythmias (1 source) Palpitations; Translations: [Palpitations] Onset: 01-30-2025 Episodic Coronary atherosclerosis and other heart disease (20 sources) Atherosclerotic heart disease of [place] coronary artery without angina pectoris; Translations: [Coronary arteriosclerosis] Onset: 04-11-2013 04-19-2016 Chronic Diabetes mellitus with complications (1 source) Type 2 diabetes mellitus with hyperglycemia; Translations: [Type 2 diabetes mellitus with hyperglycemia] Onset: 01-02-2025 Chronic Diabetes mellitus without complication (15 sources) Diabetes mellitus; Translations: [Type 2 diabetes mellitus without complications] Onset: 01-09-2013 10-21-2014 Chronic Disorders of lipid metabolism (20 sources) Hyperlipidemia; Translations: [Mixed hyperlipidemia] Onset: 01-09-2013 01-09-2013 Chronic E Codes: Fall (6 sources) Fall; Translations: [Unspecified fall, initial encounter] 11-23-2023 Episodic Essential hypertension (20 sources) Hypertensive disorder; Translations: [Essential hypertension] Onset: 01-09-2013 01-09-2013 Chronic Fracture of lower limb (12 sources) Displaced fracture of fifth metatarsal bone, left foot, initial encounter for closed fracture; Translations: [Fracture of fifth metatarsal bone of left foot] 11-20-2023 Episodic Fracture of upper limb (12 sources) Fracture of phalanx of finger; Translations: [Fracture of unspecified phalanx of unspecified finger, initial encounter for closed fracture] 11-23-2023 Episodic Nonspecific chest pain (20 sources) Chest discomfort; Translations: [Other chest pain] Onset: 01-09-2013 01-09-2013 Episodic Other aftercare (6 sources) Patient encounter status; Translations: [Other correction (current) drug therapy] 07-25-2017 Episodic Other aftercare (6 sources) Long-term current use of drug therapy; Translations: [Other correction (current) drug therapy] 07-25-2017 Episodic Other nutritional; endocrine; and metabolic disorders (1 source) Body mass index 25-29 - overweight; Translations: [Overweight] Onset: 04-11-2013 11-11-2015 Chronic Other screening for suspected conditions (not mental disorders or infectious disease) (1 source) Abnormal findings on diagnostic imaging of other specified body structures; Translations: [Abnormal findings on diagnostic imaging of other specified body structures] Onset: 12-30-2024 Chronic Unclassified (2 sources) Long-term drug therapy; Translations: [Other correction (current) drug therapy] Onset: 10-21-2014 11-11-2015 Past or Other Problems Problem Classification Problem Date Documented Date Episodic/Chronic Conditions associated with dizziness or vertigo (14 sources) Dizziness; Translations: [Dizziness and giddiness] Onset: 01-09-2013 01-09-2013 Episodic Other lower respiratory disease (1 source) Other forms of dyspnea; Translations: [Other forms of dyspnea] Onset: 12-30-2024 Episodic Other nutritional; endocrine; and metabolic disorders (1 source) Body mass index (BMI) 26.0-26.9, adult; Translations: [Body mass index (BMI) 26.0-26.9, adult] Onset: 04-11-2013 04-11-2013 Episodic Other screening for suspected conditions (not mental disorders or infectious disease) (20 sources) Electrocardiogram abnormal; Translations: [Cardiovascular stress test abnormal] Onset: 01-09-2013 01-09-2013 Episodic Residual codes; unclassified (2 sources) Family [...] Test Name Value Interpretation Reference Range Facility Cardiology Visit Reporton Cardiology Visit Report [facility] [address] [place] [address] OFFICE VISIT Date of Service: 04/14/25 MR#: [id number] Acct: [id number] Name: LAW STAHL Rep #: [id number] : 1945 Provider: Dr. Nicholas lyons MD Age/Sex: 79/F Location: [facility] [place] Status: Signed HPI HPI History of Present Illness Details: Patient is a very pleasant 79-year-old white female that comes in today for monitoring of her cardiovascular status. Her daughter Marisela works with [employer] and her granddaughter [place] Patient carries a history of nonobstructive coronary disease on a catheterization done back in 2018. She had a Holter monitor done back in December 2024 that showed sinus rhythm sinus bradycardia and sinus tachycardia 103 bpm she had frequent supraventricular ectopic beats with 5 atrial runs of 15 beats the longest was 3 beats at 110 bpm. There was no atrial fibrillation documented. She noted 1 funny feeling while sitting with rapid heart rate which correlated with normal sinus rhythm and no ectopy. The patient had an echocardiogram done January 23, 2025 that showed normal EF of 65% normal LV size mild to moderate 1-2+ tricuspid regurgitation and moderate mitral annular calcification. She also did a normal exercise myocardial perfusion stress test. The perfusion scan showed normal tracer uptake in both the rest and stress scans. There was no evidence of ischemia. Patient reports that she was doing very well until this past Sunday she was at her daughter's house and was going out the back door and missed the last step and fell. She was able to gather self and get back to her own feet on her own. She is sore and she did get evaluated in the emergency department that showed no evidence of any kind of fractures. Patient has a history of hyperlipidemia which is well-controlled as of December 2024 her blood pressure was elevated when she was last evaluated here 2 months ago today it is excellent at 129/75. She was placed on spironolactone at that time. The patient has been on spironolactone since December 2024. Patient is diabetic her hemoglobin A1c last checked was 7.2. The patient is actually here to go over her stress test and echocardiogram results. 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: No Accompanied by: Self Is patient in pain?: No Allergies exenatide (From Byetta) Adverse Reaction (Severe, Verified 04/14/25 13:56) hives, nausea, vomiting codeine Adverse Reaction (Intermediate, Verified 04/14/25 13:56) Vomiting liraglutide (From Victoza) Adverse Reaction (Intermediate, Verified 04/14/25 13:56) Nausea,vomiting Medications ???Medication ???Instructions ???Recorded ???Confirmed ???Type metformin 1,000 mg tablet 1,000 mg PO BID 90 days #180 tabs 07/15/18 04/14/25 History pravastatin 40 mg tablet 40 mg PO DAILY 90 days #90 tabs 04/14/25 History cholecalciferol (vitamin D3) 125 125 mcg PO DAILY 08/01/19 04/14/25 History mcg (5,000 unit) capsule dapagliflozin propanediol 5 mg 5 mg PO DAILY 08/01/19 04/14/25 Hi story tablet (Farxiga) esomeprazole magnesium 20 mg 20 mg PO DAILY 08/01/19 04/14/25 H istory capsule,delayed release (Nexium) calcium acetate PO QDAY 03/18/24 04/14/25 History insulin glargine 100 unit/mL (3 15 unit subcut DAILY 03/18/2410/03 History mL) subcutaneous pen (Basaglar WesPen U-100 Insulin) losartan 100 mg tablet 100 mg PO QDAY 12/30/24 04/14/25 H istory metoprolol succinate 25 mg 25 mg PO QDAY 12/30/24 04/14/25 Hi story tablet,extended release 24 hr spironolactone 25 mg tablet 25 mg PO DAILY #90 tabs 03/06/25 1 06/14/24 Rx meloxicam 15 mg tablet 15 mg PO DAILY 04/14/25 04/14/25 H istory Ejection fraction %: 65 Have you fallen in the past year?: [facility] Fracture of proximal phalanx of left little finger Fracture of fifth metatarsal bone of left foot Essential hypertension Abnormal stress test Chest discomfort Abnormal myocardial perfusion study Ventricular tachyarrhythmia CAD in [place] artery Diabetes mellitus Atherosclerotic heart disease of [place] coronary artery without angina pectoris Surgical History History of bladder repair surgery History of partial colectomy History of fusion of cervical spine History of carpal tunnel surgery of right wrist Hx of chol (more content not included)... Normal [facility] Emergency Department Summary on 04-13-2025 Emergency Department Summary [facility] Medical Records Department [address] [place] [id number] Emergency Department Summary 04/13/25 MR#: [id number] Acct: [id number] Name: LAW STAHL Rep #: [id number] : 1945 79 From: Antoni Cotton DO PCP: Dr. Nitin Blair MD Status:DEP ER Location: ED HPI History of Present Illness Chief Complaint: Fall Informant: patient and family Narrative Narrative: 79-year-old female presenting to the emergency room for the evaluation of fall. Patient states that last night she missed a step going out to her family's garage to put away ice cream. She landed on the bilateral knees and twisted also injuring the left hip. She was able to get up and ambulate. She notes abrasions and contusions to the bilateral knees and soreness to the left hip. She also notes some low back pain which she states is normal for her. She denies striking her head or having any neck injury. She has been able to ambulate. [facility] Medical History Fracture of proximal phalanx of left little finger Fracture of fifth metatarsal bone of left foot Essential hypertension Abnormal stress test Chest discomfort Abnormal myocardial perfusion study Ventricular tachyarrhythmia CAD in [place] artery Diabetes mellitus Atherosclerotic heart disease of [place] coronary artery without angina pectoris Home Medications ???Medication ???Instructions ???Recorded ???Last Taken ???Type metformin 1,000 mg tablet 1,000 mg PO BID 90 days #180 tabs 07/15/18 Unknown History pravastatin 40 mg tablet 40 mg PO DAILY 90 days #90 tabs Unknown History cholecalciferol (vitamin D3) 125 125 mcg PO DAILY 08/01/19 Unknown History mcg (5,000 unit) capsule dapagliflozin propanediol 5 mg 5 mg PO DAILY 08/01/19 Unknown His tory tablet (Farxiga) esomeprazole magnesium 20 mg 20 mg PO DAILY 08/01/19 Unknown Hi story capsule,delayed release (Nexium) aspirin-acetaminophen- caffeine 250 1 tab PO DAILY PRN 01/23/22 Unkn own History mg-250 mg-65 mg tablet (Excedrin Extra Strength) calcium acetate PO QDAY 03/18/24 Unknown History insulin glargine 100 unit/mL (3 15 unit subcut DAILY 03/18/24 Unkn own History mL) subcutaneous pen (Basaglar KwikPen U-100 Insulin) losartan 100 mg tablet 100 mg PO QDAY 12/30/24 Unknown Hi story metoprolol succinate 25 mg 25 mg PO QDAY 12/30/24 Unknown His tory tablet,extended release 24 hr spironolactone 25 mg tablet 25 mg PO DAILY #90 tabs 03/06/25 U nknown Rx Allergy/AdvReac Type Severity Reaction Status Date / Time exenatide (From Byetta) AdvReac Severe hives, Verified 04/13/25 10:05 nausea, vomiting codeine AdvReac Intermediate Vomiting Verified 04/13/25 10:05 liraglutide (From Victoza) AdvReac Intermediate Nausea,vomi Verified 04/13/25 10:05 ting Family History Mother CAD (coronary artery disease) Hx CABG Cancer Lung cancer Grandmother CVA (cerebral vascular accident) Grandfather CVA (cerebral vascular accident) Brother Heart disease CAD (coronary artery disease) Hx CABG Myocardial infarction Cancer pancreas, stomach Sister CAD (coronary artery disease) Cancer breast Son , age 53 Cancer lung Surgical History History of bladder repair surgery History of partial colectomy History of fusion of cervical spine History of carpal tunnel surgery of right wrist Hx of cholecystectomy History of hysterectomy History of appendectomy Social History Smoking Status: Never smoker alcohol intake: never substance use type: does not use caffeine: Yes Type: coffee Number of servings: 1 what type of physical activity do you participate in: none seatbelt use: always do you feel safe at home: Yes ROS ROS ED Constitutional Constitutional ED: Reports weight loss; Denies chills or fever(s) Eyes Eyes: Denies change in vision or diplopia ENT ENT ED: Denies ear pain, rhinorrhea or sore throat Cardiovascular Cardiovascular: Denies chest pain, orthopnea, palpitations or racing heartbeat Respiratory/Chest Respiratory/Chest: Denies cough, dyspnea or orthopnea Gastrointestinal Gastrointestinal: Denies abdominal pain, diarrhea, nausea or vomiting Genitourinary Genitourinary ED: Denies dysuria, hematuria or urinary frequency Musculoskeletal Musculoskeletal: Reports back pain and other Details: See history of present illness ; Denies arthralgias, myalgias or neck pain Integumentary Reports Abrasions; Denies abscess or rash Neurologic Neurologic: Denies headache(s), paresthesias or weakness Psychiatric Psychiatric: Denies a (more content not included)... Normal [facility] Extremity Lower without Cont raon 04-13-2025 Extremity Lower without Contra [facility] Imaging Services [address] [place], [place] [address] [address] Extremity Lower without Contra MR#: [id number] Acct: [id number] Name: LAW STAHL Rep #: [id number] : 1945 F 79 From: Rolando Wright PCP: Dr. Nitin Blair MD Status: REG ER Study: Extremity Lower without Contra Date of Exam: 06/13/24 Exam# [id number] Ordering Dr: Antoni Cotton DO PROCEDURE: EXTREMITY LOWER WITHOUT CONTRA 04/13/2025 REASON FOR EXAM: TRAUMA TECHNIQUE: Procedure Code: CTELWO Modality: CT Procedure: Noncontrasted CT of the left knee Coronal and Sagittal reconstruction series were provided. One or more dose reduction techniques were used (e.g., Automated exposure control, adjustment of the mA and/or kV according to patient size, use of iterative reconstruction technique). RADIATION DOSE SUMMARY: CTDlvol: 15.35 mGy DLP: 537.98 mGycm COMPARISON: Left knee study of 04/13/2025. FINDINGS: Tricompartmental left knee degenerative changes are seen, including mild medial joint narrowing and probable mild patellofemoral joint narrowing, as well. No substantial joint effusion is seen. A small Maher's cyst is noted. Disuse osteopenia is seen. No fracture or dislocation is evident. CT/Extremity Lower without Contra IMPRESSION: 1. No fracture site is seen. 2. Additional findings as noted. Reading Location: [place] [address] CC: Dr. Antoni Cotton DO; Dr. Nitin Blair MD Brain Wave Technician: Signed Normal [facility] HIP, UNI W/ Pelvis 2-3 Views on 04-13-2025 HIP, UNI W/ Pelvis 2-3 Views [facility] Services [address] [place] [address] HIP, UNI W/ Pelvis 2-3 Views MR#: [id number] Acct: [id number] Name: LAW STALH Rep #: [id number] : 1945 F 79 From: Rolando Wright PCP: Dr. Nitin Blair MD Status: REG ER Study: HIP, UNI W/ Pelvis 2-3 Views Date of Exam: 09/02 Exam# [id number] Ordering Dr: Antoni Cotton DO PROCEDURE: HIP, UNI W/ PELVIS 2-3 VIEWS 04/13/2025 REASON FOR EXAM: INJURY TECHNIQUE: Procedure Code: RADHP Modality: DX Procedure: HIP, UNI W/ PELVIS 2-3 VIEWS Laterality: Left COMPARISON: None. RAD/HIP, UNI W/ Pelvis 2-3 Views IMPRESSION: Prominent degenerative changes are seen of the visualized lower lumbar spine. Minimal sacroiliac joint degenerative changes are noted. The bilateral hip joints show mild degenerative changes, without associated joint narrowing. No evidence of femoral head osteonecrosis. No acute fracture or dislocation is seen. If clinical concern persists, short-term follow-up imaging may be obtained to rule out a currently occult fracture. Reading Location: [place] [address] CC: Dr. Antoni Cotton DO; Dr. Nitin Blair MD Brain Wave Technician: Signed Normal [facility] Knee 4 or More Viewson 04-13 Knee 4 or More Views [facility] Services [address] [place] [address] Knee 4 or More Views MR#: [id number] Acct: [id number] Name: LAW STAHL Rep #: [id number] : 1945 F 79 From: Rolando Wright PCP: Dr. Nitin Blair MD Status: REG ER Study: Knee 4 or More Views Date of Exam: 04/13/25 Exam# [id number] Ordering Dr: Antoni Cotton DO PROCEDURE: KNEE 4 OR MORE VIEWS 04/13/2025 REASON FOR EXAM: INJURY TECHNIQUE: Procedure Code: RADKN Modality: DX Procedure: KNEE 4 OR MORE VIEWS Laterality: Bilateral COMPARISON: None. RAD/Knee 4 or More Views IMPRESSION: No significant joint effusion is seen on either side. On the right, mild degenerative changes are most apparent at the medial and patellofemoral compartments. At least mild patellofemoral joint narrowing is also noted. No acute fracture or dislocation is seen. If clinical concern persists, short-term follow-up imaging may be obtained to rule out a currently occult fracture. On the left, on frontal imaging, a linear lucency is seen between the intercondylar eminences. This may represent a chronic process or normal variant, but cannot exclude a nondisplaced fracture of the tibial plateau. Further imaging may be obtained if and as clinically appropriate. Otherwise, on the left, mild degenerative changes are most apparent at the patellofemoral and medial compartments. Probable mild joint space narrowing of both medial compartment and patellofemoral compartments, as well. Reading Location: [place] [address] CC: Dr. Antoni Cotton DO; Dr. Nitin Blair MD Brain Wave Technician: Signed Normal [facility] Knee 4 or More Views [facility] Services [address] [place] [address] Knee 4 or More Views MR#: [id number] Acct: [id number] Name: LAW STAHL Rep #: [id number] : 1945 F 79 From: Rolando Wright PCP: Dr. Nitin Blair MD Status: REG ER Study: Knee 4 or More Views Date of Exam: 04/13/25 Exam# [id number] Ordering Dr: Antoni Cotton DO PROCEDURE: KNEE 4 OR MORE VIEWS 04/13/2025 REASON FOR EXAM: INJURY TECHNIQUE: Procedure Code: RADKN Modality: DX Procedure: KNEE 4 OR MORE VIEWS Laterality: Bilateral COMPARISON: None. RAD/Knee 4 or More Views IMPRESSION: No significant joint effusion is seen on either side. On the right, mild degenerative changes are most apparent at the medial and patellofemoral compartments. At least mild patellofemoral joint narrowing is also noted. No acute fracture or dislocation is seen. If clinical concern persists, short-term follow-up imaging may be obtained to rule out a currently occult fracture. On the left, on frontal imaging, a linear lucency is seen between the intercondylar eminences. This may represent a chronic process or normal variant, but cannot exclude a nondisplaced fracture of the tibial plateau. Further imaging may be obtained if and as clinically appropriate. Otherwise, on the left, mild degenerative changes are most apparent at the patellofemoral and medial compartments. Probable mild joint space narrowing of both medial compartment and patellofemoral compartments, as well. Reading Location: [place] [address] CC: Dr. Antoni Cotton DO; Dr. Nitin Blair MD Brain Wave Technician: Signed Normal [facility] Comprehensive Metabolic Prof ilon 04-02-2025 Albumin [Mass/Vol] 4.1 g/dL Normal 3.4-4.8 [facility] Comment on above: Performed By: #### L 500.4100, L500.4050 ####[facility] [address] [place], [address] Albumin/Globulin [Mass ratio] 1.4 {ratio} Normal 0.9-2.4 [facility] Comment on above: Performed By: #### L 500.4100, L500.4050 ####[facility] [address] [place], [address] ALK PHOS 45 U/L Normal 35-104 [facility] Comment on above: Performed By: #### L 500.4100, L500.4050 ####[facility] [address] [place], [address] ALT [Catalytic activity/Vol] 13 U/L Normal <=34 [facility] Comment on above: Performed By: #### L 500.4100, L500.4050 ####[facility] [address] [place], [address] AST [Catalytic activity/Vol] 18 U/L Normal <=31 [facility] Comment on above: Performed By: #### L 500.4100, L500.4050 ####[facility] [address] [place], [address] Bilirubin [Mass/Vol] 0.81 mg/dL Normal 0.00-1.30 [facility] Comment on above: Performed By: #### L 500.4100, L500.4050 ####[facility] [address] [place], [address] BUN/CRE 27.1 RATIO High 10-20 [facility] Comment on above: Performed By: #### L 500.4100, L500.4050 ####[facility] [address] [place], [address] Calcium [Mass/Vol] 9.3 mg/dL Normal 7.6-11.0 [facility] Comment on above: Performed By: #### L 500.4100, L500.4050 ####[facility] [address] [place], [address] Chloride [Moles/Vol] 103 mmol/L Normal 98-108 [facility] Comment on above: Performed By: #### L 500.4100, L500.4050 ####[facility] [address] [place], [address] CO2 [Moles/Vol] 26.2 mmol/L Normal 21.0-32.0 [facility] Comment on above: Performed By: #### L 500.4100, L500.4050 ####[facility] [address] [place], [address] Creatinine [Mass/Vol] 0.97 mg/dL Normal 0.70-1.20 [facility] Comment on above: Performed By: #### L 500.4100, L500.4050 ####[facility] [address] [place], [address] GAP 11 Normal 5-15 [facility] Comment on above: Performed By: #### L 500.4100, L500.4050 ####[facility] [address] [place], [address] GFR/1.73 sq M.predicted among non-blacks MDRD (S/P/Bld) [Vol rate/Area] 59 mL/min/{1.73_m2} Low >60 [facility] Comment on above: Result Comment: mL/m in/1.73m2 CKD-EPI Creatinine Equation (2020) Performed By: #### L 500.4100, L500.4050 ####[facility] [address] [place], [address] Globulin (S) [Mass/Vol] 3.0 g/dL Normal 2.2-4.2 [facility] Comment on above: Performed By: #### L 500.4100, L500.4050 ####[facility] [address] [place], [address] Glucose [Mass/Vol] 110 mg/dL High 70-99 [facility] Comment on above: Performed By: #### L 500.4100, L500.4050 ####[facility] [address] [place], [address] Potassium [Moles/Vol] 3.9 mmol/L Normal 3.3-5.1 [facility] Comment on above: Performed By: #### L 500.4100, L500.4050 ####[facility] [address] [place], [address] Sodium [Moles/Vol] 140 mmol/L Normal 133-145 [facility] Comment on above: Performed By: #### L 500.4100, L500.4050 ####[facility] [address] [place], [address] T PROT 7.1 g/dL Normal 5.9-8.4 [facility] Comment on above: Performed By: #### L 500.4100, L500.4050 ####[facility] [address] [place], [address] Urea nitrogen [Mass/Vol] 26 mg/dL High 4-19 [facility] Comment on above: Performed By: #### L 500.4100, L500.4050 ####[facility] [address] [place], [address] Lipid Profileon 04-02-2025 CHOL:HDL 2.61 Normal [facility] Comment on above: Performed By: #### L 500.4100, L500.4050 ####[facility] [address] [place], [address] Cholesterol [Mass/Vol] 143 mg/dL Normal <=200 [facility] Comment on above: Result Comment: Chol esterol level, Desirable <200 mg/dL Borderline high cholesterol 200-239 mg/dL High cholesterol >=240 mg/dL Recommendations of the NCEP Adult Treatment Panel for the following risk-cutoff thresholds for the [place] population. Performed By: #### L 500.4100, L500.4050 ####[facility] [address] [place], [address] Cholesterol in HDL [Mass/Vol] 55 mg/dL Normal [facility] Comment on above: Result Comment: [place] Cholesterol Education Program (NCEP) guidelines: <40 mg/dL: Low HDL-cholesterol (major risk factor for CHD) >= 60 mg/dL: High HDL-cholesterol (negative risk factor for CHD) HDL-cholesterol is affected by a number of factors, e.g. smoking, exercise, hormones, sex and age. Performed By: #### L 500.4100, L500.4050 ####[facility] [address] [place], [address] Cholesterol in LDL [Mass/Vol] 74 mg/dL Normal [facility] Comment on above: Result Comment: Bord tjvxbf=813-985 mg/dL Higher Uhdl=421 mg/dL or greater Loza Equation 2020 for LDL-C Performed By: #### L 500.4100, L500.4050 ####[facility] [address] [place], [address] Cholesterol in VLDL [Mass/Vol] 14 mg/dL Normal 5-40 [facility] Comment on above: Performed By: #### L 500.4100, L500.4050 ####[facility] [address] [place], [address] Triglyceride [Mass/Vol] 72 mg/dL Normal [facility] Comment on above: Result Comment: The drugs N-Acetylcysteine and Metamizole may falsely depress this assay. Normal range: <150 mg/dL Borderline High: 150-199 mg/dL High: 200-499 mg/dL Very High: >500 mg/dL Performed By: #### L 500.4100, L500.4050 ####[facility] [address] [place], [address] Basic Metabolic Profile (BMP )on 03-19-2025 BUN/CRE 21.1 RATIO High - [facility] Comment on above: Performed By: #### L 500.2500 #### [facility] [address] [place], [address] Calcium [Mass/Vol] 8.9 mg/dL Normal 7.6-11.0 [facility] Comment on above: Performed By: #### L 500.2500 #### [facility] [address] [place], [address] Chloride [Moles/Vol] 102 mmol/L Normal 98-108 [facility] Comment on above: Performed By: #### L 500.2500 #### [facility] [address] [place], [address] CO2 [Moles/Vol] 25.5 mmol/L Normal 21.0-32.0 [facility] Comment on above: Performed By: #### L 500.2500 #### [facility] [address] [place], [address] Creatinine [Mass/Vol] 1.01 mg/dL Normal 0.70-1.20 [facility] Comment on above: Performed By: #### L 500.2500 #### [facility] [address] [place], [address] GAP 10 Normal 5-15 [facility] Comment on above: Performed By: #### L 500.2500 #### [facility] [address] [place], [address] GFR/1.73 sq M.predicted among non-blacks MDRD (S/P/Bld) [Vol rate/Area] 56 mL/min/{1.73_m2} Low >60 [facility] Comment on above: Result Comment: mL/m in/1.73m2 CKD-EPI Creatinine Equation (2020) Performed By: #### L 500.2500 #### [facility] [address] [place], [address] Glucose [Mass/Vol] 91 mg/dL Normal 70-99 [facility] Comment on above: Performed By: #### L 500.2500 #### [facility] [address] [place], [address] Potassium [Moles/Vol] 3.9 mmol/L Normal 3.3-5.1 [facility] Comment on above: Performed By: #### L 500.2500 #### [facility] [address] [place], [address] Sodium [Moles/Vol] 138 mmol/L Normal 133-145 [facility] Comment on above: Performed By: #### L 500.2500 #### [facility] [address] [place], [address] Urea nitrogen [Mass/Vol] 21 mg/dL High 4-19 [facility] Comment on above: Performed By: #### L 500.2500 #### [facility] [address] [place], [address] Cardiology Visit Reporton Cardiology Visit Report [facility] [address] [place], [place] [address] OFFICE VISIT Date of Service: 03/06/25 MR#: [id number] Acct: [id number] Name: LAW STAHL Rep #: [id number] : 1945 Provider: NBA Butler Age/Sex: 79/F Location[facility] Status: Signed HPI HPI History of Present Illness Details: This is a 79-year-old white female with a history of underlying coronary artery calcification and nonobstructive CAD, nonsustained wide-complex tachycardia, hyperlipidemia, and hypertension. She had a stress test in 01/2025 that was negative for ischemia. Pt has not had any palpitations since she was here last. She does not have any chest pain or worsening SOB. She does not have any lightheadedness/dizzin ess. She does not have any chest pain. She is active. 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: No Is patient in pain?: No Allergies exenatide (From Byetta) Adverse Reaction (Severe, Verified 03/06/25 08:31) hives, nausea, vomiting codeine Adverse Reaction (Intermediate, Verified 03/06/25 08:31) Vomiting liraglutide (From Victoza) Adverse Reaction (Intermediate, Verified 03/06/25 08:31) Nausea,vomiting Medications ???Medication ???Instructions ???Recorded ???Confirmed ???Type metformin 1,000 mg tablet 1,000 mg PO BID 90 days #180 tabs 07/15/18 03/06/25 History pravastatin 40 mg tablet 40 mg PO DAILY 90 days #90 tabs 03/06/25 History cholecalciferol (vitamin D3) 125 125 mcg PO DAILY 08/01/19 03/06/25 History mcg (5,000 unit) capsule dapagliflozin propanediol 5 mg 5 mg PO DAILY 08/01/19 03/06/25 Hi story tablet (Farxiga) esomeprazole magnesium 20 mg 20 mg PO DAILY 08/01/19 03/06/25 H istory capsule,delayed release (Nexium) aspirin-acetaminophen- caffeine 250 1 tab PO DAILY PRN 01/23/2202/10 History mg-250 mg-65 mg tablet (Excedrin Extra Strength) calcium acetate PO QDAY 03/18/24 03/06/25 History insulin glargine 100 unit/mL (3 15 unit subcut DAILY 03/18/2402/10 History mL) subcutaneous pen (Basaglar KwikPen U-100 Insulin) losartan 100 mg tablet 100 mg PO QDAY 12/30/24 03/06/25 H istory metoprolol succinate 25 mg 25 mg PO QDAY 12/30/24 03/06/25 Hi story tablet,extended release 24 hr spironolactone 25 mg tablet 25 mg PO DAILY #90 tabs 03/06/25 0 03/06/25 Rx Ejection fraction %: 65 Have you fallen in the past year?: No PFSH Medical History (Updated 03/06/25 @ 09:11 by Marisela MERRITT, PA) Fracture of proximal phalanx of left little finger Fracture of fifth metatarsal bone of left foot Essential hypertension Abnormal stress test Chest discomfort Abnormal myocardial perfusion study Ventricular tachyarrhythmia CAD in [place] artery Diabetes mellitus Atherosclerotic heart disease of [place] coronary artery without angina pectoris Surgical History [...] home: Yes ROS Const Const: Positive for headache(s); Negative for fatigue, weakness or frequent falls Eyes Eyes: Negative for blurry vision ENT ENT: Positive for headache(s); Negative for dizziness or Nosebleed/epistaxis Cardio Chest Pain: No Palpitations: No Edema: None Muscle aches with walking: None Resp Respiratory: Negative for SOB with activity, SOB at rest or SOB orthopnea SOB lying down GI GI: Negative nausea, vomiting, heartburn, bright, red blood in stools or black,tarry stools : Negative for hematuria Celina (more content not included)... Normal [facility] Cardiovascular stress test r eportOrdered By: Theo Hernandez on 01-23-2025 Study report [facility] [address] [place] [address] MR#: [id number] Acct: [id number] Name: LAW STAHL Rep #: [id number] : 1945 79 From: Theo Hernandez MD Primary Care: Dr. Nitin Blair MD Status : REG CLI Referring Dr: Marisela Bernardo Sex : F C Stress Test Report Exercise myocardial perfusion stress test. 79-year-old with a history of dyspnea and PVCs. Stress protocol: Resting EKG demonstrates normal sinus rhythm with a rate of 61 bpm resting bloodpressure is 130/70 mmHg. The patient exercised according to the regular Miguelangel protocol for a total duration of 4 minutes and 15 seconds attaining a maximum heart rate of 164 bpm which was 117% of maximum predicted heart rate; the maximum workload was 7 metabolic equivalents. At rest there were no ST or T wavechanges noted to suggest ischemia and at peak exercise [address] depression were noted in leads II, III and aVF and V5 and V6. Above changes suggestive of ischemia. No clinical angina was noted the test was terminated due to the target heart rate being achieved/fatigue. The peak blood pressure uue360/72 mmHg. Rate-pressure product was 18,000. Myocardial perfusion protocol. 10.6 mCi of technetium 99m sestamibi was injected at rest. The patient exercisedaccording to regular Miguelangel protocol for total duration of 4 minutes and 15 seconds and at peak exercise 32.8 mCi of technetium 99m sestamibi was injected stress images were obtained stress and rest images were reconstructed in comparing the short axis vertical long and horizontal long axis. Gated images were also obtained. Perfusion SPECT analysis: Review of the stress images demonstrate normal uptake of tracer noted in all areas of the myocardium. The resting images similarly demonstrate normal uptake of tracer noted in all areas of the myocardium. No areas of reversibility are noted to suggest ischemia no previous infarct was noted. Gated SPECT analysis: The gated ejection fraction is normal %. Conclusion: Normal exercise myocardial perfusion stress test EKG changes noted which were not different from prior EKG . 01/23/251837 Date _ Theo Hernandez MD CC: Dr. Nitin Blair MD; NBA Brink ~ Date Dictated: 01/23/251833 Date Transcribed: 01/23/251833 Brain Wave Technician: [place] Signed [facility] Work Phone: Echo Azaleoson 01-23-2025 Echo Complete [facility] [address] [place] [address]. [place] [address] Echo Complete 01/23/25 0907 MR#: [id number] Acct: [id number] Name: LAW STAHL Rep #: [id number] : 1945 79 From: Theo Hernandez MD Attending Dr: NBA Brink Status: REG CLI Ordering Dr: Marisela Bernardo Date: 01/09 11/02 Location: [facility] Sex: F C Admitted: Reason For Study Reason For Study: Arrhythmia Procedure This was a 2D Doppler, Color Flow transthoracic echocardiogram. Exam performed in department. Left Ventricle Normal LV size. Mild concentric left ventricular hypertrophy. The left ventricular ejection fraction is 65 %. No regional wall motion abnormalities noted. Right Ventricle Normal RV size. Normal systolic function. Atria Normal left atrium. Normal right atrium. Mitral Valve There is moderate mitral annular calcification. Mild (1+) eccentric mitral valve insufficiency. Tricuspid Valve Normal tricuspid valve. Mild to moderate (1-2+) tricuspid valve insufficiency. Pulmonary artery systolic pressure is 30 mmHg. Aortic Valve Trisinus/trileaflet aortic valve. Pulmonic Valve Normal pulmonic valve. Great Vessels Normal aortic root. The pulmonary artery is normal size. Inferior vena cava collapse with respiration. Pericardium/Pleural No pericardial effusion. MMode/2D Measurements Calculations LVIDd: 3.7 cm IVSd: 1.2 cm Ao root diam: 3.1 cm LVIDs: 2.1 cm LVPWd: 1.2 cm RVDd: 3.1 cm FS: 42.9 % LAV(MOD-bp): 47.4 ml LVAd ap4: 20.6 cm2 LVAd ap2: 23.1 cm2 LAV(MOD-bp) Indexed: 27.8 ml/m2 LVLd ap4: 6.6 cm LVLd ap2: 7.0 cm LAV(MOD-sp2): 43.8 ml EDV(MOD-sp4): 53.1 ml EDV(MOD-sp2): 62.6 ml LAV(MOD-sp4): 52.9 ml EDV(sp4-el): 54.9 ml EDV(sp2-el): 64.6 ml LVAs ap4: 12.5 cm2 LVAs ap2: 11.4 cm2 LVLs ap4: 5.9 cm LVLs ap2: 6.1 cm ESV(MOD-sp4): 21.6 ml ESV(MOD-sp2): 18.6 ml ESV(sp4-el): 22.6 ml ESV(sp2-el): 18.3 ml EF(MOD-sp4): 59.2 % EF(MOD-sp2): 70.3 % EF(sp4-el): 58.9 % SV(MOD-sp4): 31.4 ml SV(MOD-sp2): 44.0 ml SV(sp4-el): 32.3 ml SI(MOD-sp4): 18.4 ml/m2 SI(MOD-sp2): 25.8 ml/m2 LA A4 area: 18.8 cm2 LA dimension(2D): 3.6 cm RA A4 area: 10.1 cm2 TAPSE: 1.7 cm Time Measurements MV dec time: 0.19 sec Doppler Measurements Calculations MV E max deion: 90.6 cm/sec Lat Peak E' Deion: 8.4 cm/sec Med Peak E' Deion: 7.7 cm/sec MV A max deion: 56.7 cm/sec E/E' lat: 10.8 E/E' med: 11.7 MV E/A: 1.6 Ao V2 max: 105.8 cm/sec LV V1 max: 89.6 cm/sec MV dec slope: 484.0 cm/sec2 Ao max P.5 mmHg LV V1 max P.2 mmHg PA V2 max: 82.7 cm/sec TR max deion: 262.5 cm/sec TR max P.6 mmHg ECHO/Echo Complete Interpretation Summary The left ventricular ejection fraction is 65 %. Normal LV size. Mild to moderate (1-2+) tricuspid valve insufficiency. There is moderate mitral annular calcification. Ordering Physician: Marisela Bernardo Referring Physician: Nitin Blair Performed By: Darling Robles RDCS 01/23/25 1744 Date Theo Hernandez MD CC: Dr. Nitin Blair MD; NBA Brink Date Dictated: 01/23/25906 Date Transcribed: 01/23/25 6576 Brain Wave Technician: Signed Normal [facility] Echocardiogram study reportO rdered By: Theo Hernandez on 01-23-2025 Study report [facility] Cardi[facility] [place] [address] Echo Complete 01/23/25906 MR#: [id number] Acct: [id number] Name: LAW STAHL Rep #:[id number] 1 : 1945 79 From: Theo Wright Attending Dr: NBA Brink Status: REG CLI Ordering Dr: Marisela Bernardo Date: 01/23/25 Location: [facility] Sex: F C Admitted: Reason For Study Reason For Study: Arrhythmia Procedure This was a 2D Doppler, Color Flow transthoracic echocardiogram. Exam performed in department. Left Ventricle Normal LV size. Mild concentric left ventricular hypertrophy. The left ventricular ejection fraction is 65 %. No regional wall motion abnormalities noted. Right Ventricle Normal RV size. Normal systolic function. Atria Normal left atrium. Normal right atrium. Mitral Valve There is moderate mitral annular calcification. Mild (1+) eccentric mitral valveinsufficiency. Tricuspid Valve Normal tricuspid valve. Mild to moderate (1-2+) tricuspid valve insufficiency. Pulmonary artery systolic pressure is 30 mmHg. Aortic Valve Trisinus/trileaflet aortic valve. Pulmonic Valve Normal pulmonic valve. Great Vessels Normal aortic root. The pulmonary artery is normal size. Inferior vena cava collapse with respiration. Pericardium/Pleural No pericardial effusion. MMode/2D Measurements & Calculations LVIDd: 3.7 cm IVSd: 1.2 cm Ao root diam: 3.1 cm LVIDs: 2.1 cm LVPWd: 1.2 cm RVDd: 3.1 cm FS: 42.9 % LAV(MOD-bp): 47.4 ml LVAd ap4: 20.6 cm2 LVAd ap2: 23.1 cm2 LAV(MOD-bp) Indexed: 27.8 ml/m2 LVLd ap4: 6.6 cm LVLd ap2: 7.0 cm LAV(MOD-sp2): 43.8 ml EDV(MOD-sp4): 53.1 ml EDV(MOD-sp2): 62.6 ml LAV(MOD-sp4): 52.9 ml EDV(sp4-el): 54.9 ml EDV(sp2-el): 64.6 ml LVAs ap4: 12.5 cm2 LVAs ap2: 11.4 cm2 LVLs ap4: 5.9 cm LVLs ap2: 6.1 cm ESV(MOD-sp4): 21.6 ml ESV(MOD-sp2): 18.6 ml ESV(sp4-el): 22.6 ml ESV(sp2-el): 18.3 ml EF(MOD-sp4): 59.2 % EF(MOD-sp2): 70.3 % EF(sp4-el): 58.9 % SV(MOD-sp4): 31.4 ml SV(MOD-sp2): 44.0 ml SV(sp4-el): 32.3 ml SI(MOD-sp4): 18.4 ml/m2 SI(MOD-sp2): 25.8 ml/m2 LA A4 area: 18.8 cm2 LA dimension(2D): 3.6 cm RA A4 area: 10.1 cm2 __ TAPSE: 1.7 cm Time Measurements MV dec time: 0.19 sec Doppler Measurements & Calculations MV E max deion: 90.6 cm/sec Lat Peak E' Deion: 8.4 cm/sec Med Peak E' Deion: 7.7 cm/sec MV A max deion: 56.7 cm/sec E/E' lat: 10.8 E/E' med: 11.7 MV E/A: 1.6 Ao V2 max: 105.8 cm/sec LV V1 max: 89.6 cm/sec MV dec slope: 484.0 cm/sec2 Ao max P.5 mmHg LV V1 max P.2 mmHg PA V2 max: 82.7 cm/sec TR max deion: 262.5 cm/sec TR max P.6 mmHg ECHO/Echo Complete Interpretation Summary The left ventricular ejection fraction is 65 %. Normal LV size. Mild to moderate (1-2+) tricuspid valve insufficiency. There is moderate mitral annular calcification. Ordering Physician: Marisela Bernardo Referring Physician: Nitin Blair Performed By: Darling Robles RDCS 01/23/251743 Date _ Theo Hernandez MD CC: Dr. Nitin Blair MD; NBA Brink ~ Date Dictated: 01/23/25906 Date Transcribed: 01/23/251743 Brain Wave Technician: Signed [facility] Work Phone: Stress Reporton 01-23-2025 Stress Report [facility] Cardi[facility] Services [address] [place] [id number] MR#: [id number] Acct: [id number] Name: LAW STAHL Rep #: [id number] : 1945 79 From: Theo Hernandez MD Primary Care: Dr. Nitin Blair MD Status: REG CLI Referring Dr: Marisela Bernardo PA Sex: F C Stress Test Report Exercise myocardial perfusion stress test. 79-year-old with a history of dyspnea and PVCs. Stress protocol: Resting EKG demonstrates normal sinus rhythm with a rate of 61 bpm resting blood pressure is 130/70 mmHg. The patient exercised according to the regular Miguelangel protocol for a total duration of 4 minutes and 15 seconds attaining a maximum heart rate of 164 bpm which was 117% of maximum predicted heart rate; the maximum workload was 7 metabolic equivalents. At rest there were no ST or T wave changes noted to suggest ischemia and at peak exercise [address] depression were noted in leads II, III and aVF and V5 and V6. Above changes suggestive of ischemia. No clinical angina was noted the test was terminated due to the target heart rate being achieved/fatigue. The peak blood pressure was 158/72 mmHg. Rate-pressure product was 18,000. Myocardial perfusion protocol. 10.6 mCi of technetium 99m sestamibi was injected at rest. The patient exercised according to regular Miguelangel protocol for total duration of 4 minutes and 15 seconds and at peak exercise 32.8 mCi of technetium 99m sestamibi was injected stress images were obtained stress and rest images were reconstructed in comparing the short axis vertical long and horizontal long axis. Gated images were also obtained. Perfusion SPECT analysis: Review of the stress images demonstrate normal uptake of tracer noted in all areas of the myocardium. The resting images similarly demonstrate normal uptake of tracer noted in all areas of the myocardium. No areas of reversibility are noted to suggest ischemia no previous infarct was noted. Gated SPECT analysis: The gated ejection fraction is normal %. Conclusion: Normal exercise myocardial perfusion stress test EKG changes noted which were not different from prior EKG . 01/23/251837 Date Theo Hernandez MD CC: Dr. Nitin Blair MD; NBA Brink Date Dictated: 01/23/251833 Date Transcribed: 01/23/251833 Brain Wave Technician: [place] Signed Normal [facility] Electrocardiogram reportOrde red By: Theo Hernandez on 01-05-2025 EKG study [facility] Cardiovascular Services [address] [place] [address] 12 Lead EKG 01/02/25 0831 MR#: [id number] Acct: [id number] Name: LAW STAHL Rep #:[id number] 1 : 1945 79 From: Theo Hernandez MD Attending Dr: NBA Brink Status: REG CLI Ordering Dr: Nitin Blair MD Date: Location: PSN Sex: F C Admitted: Test Reason : ROUTINE Blood Pressure : */* mmHG Vent. Rate : 66 BPM Atrial Rate : 80 BPM P-R Int : 170 ms QRS Dur : 90 ms QT Int : 422 ms P-R-T Axes : 44 58 71 degrees QTcB Int : 442 ms Sinus rhythm with marked sinus arrhythmia Otherwise normal ECG Confirmed by THEO HERNANDEZ MD ([id number]), EMERSON Velasquez ([id number]) on 01/05/2025 9:02:14 AM Referred By: Marisela Bernardo Confirmed By: THEO HERNANDEZ MD 01/05/25901 Date _ Theo Hernandez MD CC: Dr. Nitin Blair MD; NBA Brink ~ Signed [facility] Work Phone: 12 Lead EKGon 01-02-2025 12 Lead EKG [facility] Cardiovascular Services [address] [place] [address] 12 Lead EKG 01/02/25 0831 MR#: [id number] Acct: [id number] Name: LAW STAHL Rep #: [id number] : 1945 79 From: Theo Hernandez MD Attending Dr: NBA Brink Status: REG CLI Ordering Dr: Nitin Blair MD Date: 01/02/25 Location: [facility] Sex: F C Admitted: Test Reason : ROUTINE Blood Pressure : */* mmHG Vent. Rate : 66 BPM Atrial Rate : 80 BPM P-R Int : 170 ms QRS Dur : 90 ms QT Int : 422 ms P-R-T Axes : 44 58 71 degrees QTcB Int : 442 ms Sinus rhythm with marked sinus arrhythmia Otherwise normal ECG Confirmed by THEO HERNANDEZ MD ([id number]), EMERSON Velasquez ([id number]) on 01/05/2025 9:02:14 AM Referred By: Marisela Bernardo Confirmed By: THEO HERNANDEZ MD 01/05/25901 Date Theo Hernandez MD CC: Dr. Nitin Blair MD; NBA Brink Signed Normal [facility] Cardiology Visit Reporton Cardiology Visit Report [facility] [address] [place] [address] OFFICE VISIT Date of Service: 12/30/24 MR#: [id number] Acct: [id number] Name: LAW STAHL Rep #: [id number] : 1945 Provider: NBA Butler Age/Sex: 79/F Location: [facility] Status: Signed HPI HPI History of [...] Intake Visit Reasons: SEE NOTES IN MAILBOX Watershed Engineer Required: No Is patient in pain?: No [...] 08/01/19 12/30/24 H istory capsule,delayed release (Nexium) aspirin-acetaminophen- caffeine 250 1 tab PO DAILY PRN 01/23/2212/10 [...] myocardial perfusion study Ventricular tachyarrhythmia CAD in [place] artery Diabetes mellitus Atherosclerotic heart disease of [place] coronary artery without angina pectoris Surgical History [...] GI G (more content not included)... Normal [facility] Anion gap in Serum or Plasma Ordered By: Nitin Blari on 12-29-2024 Anion gap [Moles/Vol] 13 mmol/L 10-23 [facility] BUN/creatinine ratioOrdered By: Nitin Blair on 12-29-2024 Urea nitrogen/Creatinine [Mass ratio] 16.5 mg/mg 03-30 [facility] Basic Metabolic Profile (BMP )on 12-29-2024 BUN/CRE 16.5 RATIO Normal 03-30 [facility] Comment on above: Performed By: #### L 502.0250, L500.4100, L500.2500 #### [facility] [address] [place], [address] Calcium [Mass/Vol] 9.2 mg/dL Normal 7.6-11.0 [facility] Comment on above: Performed By: #### L 502.0250, L500.4100, L500.2500 #### [facility] [address] [place], [address] Chloride [Moles/Vol] 99 mmol/L Normal 98-108 [facility] Comment on above: Performed By: #### L 502.0250, L500.4100, L500.2500 #### [facility] [address] [place], [address] CO2 [Moles/Vol] 23.4 mmol/L Normal 21.0-32.0 [facility] Comment on above: Performed By: #### L 502.0250, L500.4100, L500.2500 #### [facility] [address] [place], [address] Creatinine [Mass/Vol] 0.99 mg/dL Normal 0.70-1.20 [facility] Comment on above: Performed By: #### L 502.0250, L500.4100, L500.2500 #### [facility] [address] [place], [address] GAP 13 Normal 5-15 [facility] Comment on above: Performed By: #### L 502.0250, L500.4100, L500.2500 #### [facility] [address] [place], [address] GFR/1.73 sq M.predicted among non-blacks MDRD (S/P/Bld) [Vol rate/Area] 58 mL/min/{1.73_m2} Low >60 [facility] Comment on above: Result Comment: mL/m in/1.73m2 CKD-EPI Creatinine Equation (2020) Performed By: #### L 502.0250, L500.4100, L500.2500 #### [facility] [address] [place], [address] Glucose [Mass/Vol] 97 mg/dL Normal 70-99 [facility] Comment on above: Performed By: #### L 502.0250, L500.4100, L500.2500 #### [facility] [address] [place], [address] Potassium [Moles/Vol] 4.0 mmol/L Normal 3.3-5.1 [facility] Comment on above: Performed By: #### L 502.0250, L500.4100, L500.2500 #### [facility] [address] [place], [address] Sodium [Moles/Vol] 136 mmol/L Normal 133-145 [facility] Comment on above: Performed By: #### L 502.0250, L500.4100, L500.2500 #### [facility] [address] [place], [place], [address] Urea nitrogen [Mass/Vol] 16 mg/dL Normal 4-19 [facility] Comment on above: Performed By: #### L 502.0250, L500.4100, L500.2500 #### [facility] [address] [place], [address] Calculated very low density lipoprotein (VLDL) cholesterol measurementOrdered By: Nitin Blair on 12-29-2024 Calculated very low density lipoprotein (VLDL) cholesterol measurement 15 mg/dL 5-40 [facility] Carbon dioxide, total [Moles /volume] in Central venous bloodOrdered By: Nitin Blair on 12-29-2024 CO2 [Moles/Vol] 23.4 mmol/L 21.0-32.0 [facility] Chloride assayOrdered By: Nba Blair on 12-29-2024 Chloride [Moles/Vol] 99 mmol/L 98-108 [facility] Glomerular filtration rate ( GFR) estimation/1.73 sq m using serum, plasma, or whole bOrdered By: Nitin Blair on 12-29-2024 GFR/1.73 sq M.predicted among non-blacks MDRD (S/P/Bld) [Vol rate/Area] 58 mL/min/{1.73_m2} Low >60 [facility] Comment on above: mL/min/1.73m2 CKD-EP I Creatinine Equation (2020) LDL calc ser/plasOrdered By: Nitin Blair on 12-29-2024 Cholesterol in LDL [Mass/Vol] 61 mg/dL [facility] Comment on above: Ugcaptpsch=328-626 m g/dL & Higher Qkao=424 mg/dL or greater Lipid Profileon 12-29-2024 CHOL:HDL 2.33 Normal [facility] Comment on above: Performed By: #### L 502.0250, L500.4100, L500.2500 #### [facility] [address] [place], [address] Cholesterol [Mass/Vol] 133 mg/dL Normal <=200 [facility] Comment on above: Result Comment: Chol esterol level, Desirable <200 mg/dL Borderline high cholesterol 200-239 mg/dL High cholesterol >=240 mg/dL Recommendations of the NCEP Adult Treatment Panel for the following risk-cutoff thresholds for the [place] population. Performed By: #### L 502.0250, L500.4100, L500.2500 #### [facility] [address] [place], [address] Cholesterol in HDL [Mass/Vol] 57 mg/dL Normal [facility] Comment on above: Result Comment: [place] Cholesterol Education Program (NCEP) guidelines: <40 mg/dL: Low HDL-cholesterol (major risk factor for CHD) >= 60 mg/dL: High HDL-cholesterol (negative risk factor for CHD) HDL-cholesterol is affected by a number of factors, e.g. smoking, exercise, hormones, sex and age. Performed By: #### L 502.0250, L500.4100, L500.2500 #### [facility] [address] [place], [address] Cholesterol in LDL [Mass/Vol] 61 mg/dL Normal [facility] Comment on above: Result Comment: Bord slghvy=341-076 mg/dL Higher Mysd=293 mg/dL or greater Performed By: #### L 502.0250, L500.4100, L500.2500 #### [facility] [address] [place], [address] Cholesterol in VLDL [Mass/Vol] 15 mg/dL Normal 5-40 [facility] Comment on above: Performed By: #### L 502.0250, L500.4100, L500.2500 #### [facility] [address] [place], [address] Triglyceride [Mass/Vol] 75 mg/dL Normal [facility] Comment on above: Result Comment: The drugs N-Acetylcysteine and Metamizole may falsely depress this assay. Normal range: <150 mg/dL Borderline High: 150-199 mg/dL High: 200-499 mg/dL Very High: >500 mg/dL Performed By: #### L 502.0250, L500.4100, L500.2500 #### [facility] [address] [place], [address] Microalb:Creat Ratio,Random URon 12-29-2024 Creatinine [Mass/Vol] 60.40 mg/dL Normal 28.00-217.00 [facility] Comment on above: Performed By: #### L 502.0250, L500.4100, L500.2500 #### [facility] [address] [place], [address] MALB:CREAT 28.3 mg/g CRE Normal <30 mg/g CRE [facility] Comment on above: Performed By: #### L 502.0250, L500.4100, L500.2500 #### [facility] [address] [place], [address] MICROALBUMIN,UR 17.1 mg/L Normal <20 mg/L [facility] Comment on above: Performed By: #### L 502.0250, L500.4100, L500.2500 #### [facility] [address] [place], [address] Potassium measurement (mass/ volume)Ordered By: Nitin Blair on 12-29-2024 Potassium (Unsp spec) [Mass/Vol] 4.0 mmol/L 3.3-5.1 [facility] Random urine creatinine km urement (mass/volume)Ordered By: Nitin Blair on 12-29-2024 Creatinine Unsp time (U) [Mass/Vol] 60.40 mg/dL 28.00-217.00 [facility] Screening total cholesterol/ high density lipoprotein (HDL) cholesterol ratioOrdered By: Nitin Blair on 12-29-2024 Cholesterol.total/Chol esterol in HDL [Mass ratio] 2.33 {ratio} [facility] Serum creatinine measurement (mass/volume)Ordered By: Nitin Blair on 12-29-2024 Creatinine [Mass/Vol] 0.99 mg/dL 0.70-1.20 [facility] Serum glucose measurement (m ass/volume)Ordered By: Nitin Blair on 12-29-2024 Glucose [Mass/Vol] 97 mg/dL 70-99 [facility] Serum or plasma calcium km urement (mass/volume)Ordered By: Nitin Blair on 12-29-2024 Calcium [Mass/Vol] 9.2 mg/dL 7.6-11.0 [facility] Serum or plasma cholesterol in HDL measurement (mass/volume)Ordered By: Nitin Blair on 12-29-2024 Cholesterol in HDL [Mass/Vol] 57 mg/dL >40 [facility] Comment on above: National Cholesterol Education Program (NCEP) guidelines:<40 mg/dL: Low HDL-cholesterol (major risk factor for CHD)>= 60 mg/dL: High HDL-cholesterol (negative risk factor for CHD)HDL-cholesterol is affected by a number of factors, e.g. smoking, exercise, hormones, sex and age. Serum or plasma cholesterol measurement (mass/volume)Ordered By: Nitin Blair on 12-29-2024 Cholesterol [Mass/Vol] 133 mg/dL <201 [facility] Comment on above: Cholesterol level, D esirable <200 mg/dLBorderline high cholesterol 200-239 mg/dLHigh cholesterol >=240 mg/dLRecommendations of the NCEP Adult Treatment Panel for the following risk-cutoff thresholds for the [place] population. Serum or plasma urea nitroge n measurement (mass/volume)Ordered By: Nitin Blair on 12-29-2024 Urea nitrogen [Mass/Vol] 16 mg/dL 4-19 [facility] Sodium levelOrdered By: Nitin Blair on 12-29-2024 Sodium [Moles/Vol] 136 mmol/L 133-145 [facility] Triglycerides measurementOrd ered By: Nitin Blair on 12-29-2024 Triglyceride [Mass/Vol] 75 mg/dL <199 [facility] Comment on above: The drugs N-Acetylcy steine and Metamizole may falsely depress this assay. Normal range: <150 mg/dLBorderline High: 150-199 mg/dLHigh: 200-499 mg/dLVery High: >500 mg/dL Urine albumin measurement wi th detection limit of 20 mg/L or less (mass/volume)Ordered By: Nitin Blair on 12-29-2024 Albumin DL <= 20 mg/L (U) [Mass/Vol] 17.1 mg/L <20 mg/L [facility] Microalb:Creat Ratio,Random URon 12-25-2024 Creatinine [Mass/Vol] 59.30 mg/dL Normal 28.00-217.00 [facility] Comment on above: Performed By: #### L 502.0250 #### [facility] [address] [place], [place], [id number] MALB:CREAT 22.9 mg/g CRE Normal <30 mg/g CRE [facility] Comment on above: Performed By: #### L 502.0250 #### [facility] [address] [place], [place], [address] MICROALBUMIN,UR 13.6 mg/L Normal <20 mg/L [facility] Comment on above: Performed By: #### L 502.0250 #### [facility] [address] [place], [place], [address] Random urine creatinine km urement (mass/volume)Ordered By: Nitin Blair on 12-25-2024 Creatinine Unsp time (U) [Mass/Vol] 59.30 mg/dL 28.00-217.00 [facility] Urine albumin measurement wi th detection limit of 20 mg/L or less (mass/volume)Ordered By: Nitin Blair on 12-25-2024 Albumin DL <= 20 mg/L (U) [Mass/Vol] 13.6 mg/L <20 mg/L [facility] Comprehensive Metabolic Prof ilon 06-30-2024 Albumin [Mass/Vol] 3.6 g/dL Normal 3.2-5.0 [facility] Comment on above: Performed By: #### L 501.0900, L500.4100, L500.4050 #### [facility] [address] [place], [address] Albumin/Globulin [Mass ratio] 1.0 {ratio} Normal 0.9-2.4 [facility] Comment on above: Performed By: #### L 501.0900, L500.4100, L500.4050 #### [facility] [address] [place], [address] ALK P 47 U/L Normal 45-117 [facility] Comment on above: Performed By: #### L 501.0900, L500.4100, L500.4050 #### [facility] [address] [place], [address] ALT [Catalytic activity/Vol] 16 U/L Normal 13-56 [facility] Comment on above: Performed By: #### L 501.0900, L500.4100, L500.4050 #### [facility] [address] [place], [address] AST [Catalytic activity/Vol] 13 U/L Low 15-37 [facility] Comment on above: Performed By: #### L 501.0900, L500.4100, L500.4050 #### [facility] [address] [place], [address] Bilirubin [Mass/Vol] 1.00 mg/dL Normal 0.20-1.00 [facility] Comment on above: Result Comment: For patients on eltrombopag therapy, use of Dimension [place] TBIL is not recommended. Performed By: #### L 501.0900, L500.4100, L500.4050 #### [facility] [address] [place], [address] BUN/CRE 20.9 RATIO High 10-20 [facility] Comment on above: Performed By: #### L 501.0900, L500.4100, L500.4050 #### [facility] [address] [place], [address] CA,Total 9.2 mg/dL Normal 8.5-10.1 [facility] Comment on above: Performed By: #### L 501.0900, L500.4100, L500.4050 #### [facility] [address] [place], [address] Chloride [Moles/Vol] 103 mmol/L Normal 98-107 [facility] Comment on above: Performed By: #### L 501.0900, L500.4100, L500.4050 #### [facility] [address] [place], [address] CO2 [Moles/Vol] 28.0 mmol/L Normal 21.0-32.0 [facility] Comment on above: Performed By: #### L 501.0900, L500.4100, L500.4050 #### [facility] [address] [place], [address] Creatinine [Mass/Vol] 0.91 mg/dL Normal 0.55-1.02 [facility] Comment on above: Result Comment: The validity of the calculated GFR GFRAA in patients over 70 years has not been determined. Clinical correlation is essential. Performed By: #### L 501.0900, L500.4100, L500.4050 #### [facility] [address] [place], [address] EST GFR - AA 77 mL/min Normal >60 [facility] Comment on above: Result Comment: Afri can [place] GFR Calc Performed By: #### L 501.0900, L500.4100, L500.4050 #### [facility] [address] [place], [address] GAP 5 Normal 5-15 [facility] Comment on above: Performed By: #### L 501.0900, L500.4100, L500.4050 #### [facility] [address] [place], [address] GFR/1.73 sq M.predicted among non-blacks MDRD (S/P/Bld) [Vol rate/Area] 63 mL/min/{1.73_m2} Normal >60 [facility] Comment on above: Result Comment: Non- GFR Calc Performed By: #### L 501.0900, L500.4100, L500.4050 #### [facility] [address] [place], [address] Globulin (S) [Mass/Vol] 3.7 g/dL Normal 2.2-4.2 [facility] Comment on above: Performed By: #### L 501.0900, L500.4100, L500.4050 #### [facility] [address] [place], [address] Glucose [Mass/Vol] 102 mg/dL Normal 74-106 [facility] Comment on above: Result Comment: Fast ing Glucose result from 100 to 125 mg/dL suggests IMPAIRED HOMEOSTASIS per A.D.A. criteria. Performed By: #### L 501.0900, L500.4100, L500.4050 #### [facility] [address] [place], [address] Potassium [Moles/Vol] 3.5 mmol/L Normal 3.5-5.1 [facility] Comment on above: Performed By: #### L 501.0900, L500.4100, L500.4050 #### [facility] [address] [place], [address] Sodium [Moles/Vol] 136 mmol/L Normal 136-145 [facility] Comment on above: Performed By: #### L 501.0900, L500.4100, L500.4050 #### [facility] [address] [place], [address] T PROT 7.3 g/dL Normal 6.4-8.2 [facility] Comment on above: Performed By: #### L 501.0900, L500.4100, L500.4050 #### [facility] [address] [place], [address] Urea nitrogen [Mass/Vol] 19 mg/dL High 7-18 [facility] Comment on above: Performed By: #### L 501.0900, L500.4100, L500.4050 #### [facility] [address] [place], [address] Lipid Profileon 06-30-2024 Cholesterol [Mass/Vol] 130 mg/dL Normal 200 [facility] Comment on above: Result Comment: <200 mg/dL Desirable 200-240 mg/dL Borderline >240 mg/dL High Risk Performed By: #### L 501.0900, L500.4100, L500.4050 #### [facility] [address] [place], [address] Cholesterol in HDL [Mass/Vol] 59 mg/dL Normal [facility] Comment on above: Result Comment: The drugs N-Acetylcysteine and Metamizole may falsely depress this assay. Reference Range HDL <40 mg/dL Low HDL Cholesterol HDL >or= 60 mg/dL High HDL Cholesterol Performed By: #### L 501.0900, L500.4100, L500.4050 #### [facility] [address] [place], [address] Cholesterol in LDL [Mass/Vol] 56 mg/dL Normal 0-130 [facility] Comment on above: Performed By: #### L 501.0900, L500.4100, L500.4050 #### [facility] [address] [place], [address] Cholesterol in VLDL [Mass/Vol] 15 mg/dL Normal 5-40 [facility] Comment on above: Performed By: #### L 501.0900, L500.4100, L500.4050 #### [facility] [address] [place], [address] Triglyceride [Mass/Vol] 73 mg/dL Normal [facility] Comment on above: Result Comment: The drugs N-Acetylcysteine and Metamizole may falsely depress this assay. Serum Triglycerides Reference Interval Normal <150 mg/dL Borderline high 150 - 199 mg/dL High 200 - 499 mg/dL Very High > or = 500 mg/dL Performed By: #### L 501.0900, L500.4100, L500.4050 #### [facility] [address] [place], [address] Protein+Creatinine Ratio,Uri neon 06-30-2024 PROT:CRE RATIO 299 mg/g CRE High 0-200 [facility] Comment on above: Performed By: #### L 501.0900, L500.4100, L500.4050 #### [facility] [address] [place], [address] Protein (U) [Mass/Vol] 22.7 mg/dL High <11.9 [facility] Comment on above: Performed By: #### L 501.0900, L500.4100, L500.4050 #### [facility] [address] [place], [address] UR CREAT 76.00 mg/dL Normal NO RANGE EST. [facility] Comment on above: Performed By: #### L 501.0900, L500.4100, L500.4050 #### [facility] [address] [place], [address] SCRN MAMM (CAD)W/BEBO BILATo n 05-12-2024 SCRN MAMM (CAD)W/BEBO BILAT [facility] Imaging Services [address] [place] [address] SCRN MAMM (CAD)W/BEBO BILAT MR#: [id number] Acct: [id number] Name: LAW STAHL Rep #: [id number] : 1945 F [id number] From: Addi hamlin MD PCP: Dr. Nitin Blair MD Status: [facility] Study: SCRN MAMM (CAD)W/BEBO BILAT Date of Exam: 08/04 Exam# [id number] Ordering Dr: Nitin Blair MD [id number] MAMMOGRAPHY - BILATERAL SCREENING REASON FOR EXAM: [...] delay biopsy of a clinically suspicious abnormality. [id number] Electronically Signed: Addi Azar MD at 10:13 EST , CC: Dr. Nitin Blair MD Brain Wave Technician: Signed Normal [facility] Basophil percentageOrdered B y: Nitin Blair on 09-26-2023 Bilirubin [Mass/Vol] 0.90 mg/dL 0.20-1.00 [facility] Comment on above: For patients on eltr ombopag therapy, use of Dimension [place] TBIL is not recommended. Chloride [Moles/Vol] 101 mmol/L 98-107 [facility] Glucose [Mass/Vol] 211 mg/dL 74-106 [facility] Comment on above: Glucose result great er than or equal to 200 mg/dLsuggests DIABETES MELLITUS per A.D.A. criteria. Potassium [Moles/Vol] 4.1 mmol/L 3.5-5.1 [facility] Protein [Mass/Vol] 7.2 g/dL 6.4-8.2 [facility] Sodium [Moles/Vol] 134 mmol/L 136-145 [facility] Laboratory - Chemistry and C hemistry - challengeOrdered By: Nitin Blair on 09-26-2023 Albumin/Globulin [Mass ratio] 1.1 {ratio} 0.9-2.4 [facility] ALP [Catalytic activity/Vol] 49 U/L 45-117 [facility] ALT [Catalytic activity/Vol] 22 U/L 13-56 [facility] CO2 [Moles/Vol] 26.0 mmol/L 21.0-32.0 [facility] Globulin (S) [Mass/Vol] 3.4 g/dL 2.2-4.2 [facility] Urea nitrogen/Creatinine [Mass ratio] 16.8 mg/mg 10-20 [facility] No Panel InformationOrdered By: Nitin Blair on 09-26-2023 Estimated GFR (MDRD) Amer 60 mL/min >60 [facility] Comment on above: GFR Calc Estimated GFR (MDRD) Non-Af Amer 49 mL/min >60 [facility] Comment on above: Non- GFR Calc Serum or plasma calcium km urement (mass/volume)Ordered By: Nitin Blair on 09-26-2023 Calcium [Mass/Vol] 9.1 mg/dL 8.5-10.1 [facility] Serum or plasma creatinine m easurement (mass/volume)Ordered By: Nitin Blair on 09-26-2023 Creatinine [Mass/Vol] 1.13 mg/dL 0.55-1.02 [facility] Comment on above: The validity of the calculated GFR & GFRAA in patients over 70 years has not been determined. Clinical correlation is essential. Serum or plasma urea nitroge n measurement (mass/volume)Ordered By: Nitin Blair on 09-26-2023 Urea nitrogen [Mass/Vol] 19 mg/dL 7-18 [facility] Thin prep Papanicolaou smear with manual screeningOrdered By: Nitin Blair on 09-26-2023 Thin prep Papanicolaou smear with manual screening 3.8 g/dL 3.2-5.0 [facility] Thin prep Papanicolaou smear with manual screening 19 U/L 15-37 [facility] Thin prep Papanicolaou smear with manual screening 7 5-15 [facility] Basophil percentageOrdered B y: Nitin Blair on 05-24-2023 Chloride [Moles/Vol] 104 mmol/L 98-107 [facility] Cholesterol [Mass/Vol] 132 mg/dL <200 [facility] Comment on above: <200 mg/dL Desirable 200-240 mg/dL Borderline >240 mg/dL High Risk Glucose [Mass/Vol] 122 mg/dL 74-106 [facility] Comment on above: Fasting Glucose resu lt from 100 to 125 mg/dL suggests IMPAIRED HOMEOSTASIS per A.D.A. criteria. Potassium [Moles/Vol] 3.7 mmol/L 3.5-5.1 [facility] Sodium [Moles/Vol] 136 mmol/L 136-145 [facility] Triglyceride [Mass/Vol] 91 mg/dL <199 [facility] Comment on above: The drugs N-Acetylcy steine and Metamizole may falsely depress this assay.Serum Triglycerides Reference Interval Normal <150 mg/dL Borderline high 150 - 199 mg/dL High 200 - 499 mg/dL Very High > or = 500 mg/dL Laboratory - Chemistry and C hemistry - challengeOrdered By: Nitin Blair on 05-24-2023 CO2 [Moles/Vol] 25.0 mmol/L 21.0-32.0 [facility] Urea nitrogen/Creatinine [Mass ratio] 18.4 mg/mg 10-20 [facility] No Panel InformationOrdered By: Nitin Blair on 05-24-2023 Estimated GFR (MDRD) Amer 71 mL/min >60 [facility] Comment on above: GFR Calc Estimated GFR (MDRD) Non-Af Amer 58 mL/min >60 [facility] Comment on above: Non- GFR Calc Urine Microalbumin/Creatinin e Ratio 108.8 mg/g CRE <30 [facility] Serum or plasma calcium km urement (mass/volume)Ordered By: Nitin lBair on 05-24-2023 Calcium [Mass/Vol] 9.2 mg/dL 8.5-10.1 [facility] Serum or plasma cholesterol in HDL measurement (mass/volume)Ordered By: Nitin Blair on 05-24-2023 Cholesterol in HDL [Mass/Vol] 48 mg/dL >40 [facility] Comment on above: The drugs N-Acetylcy steine and Metamizole may falsely depress this assay. Reference Range HDL <40 mg/dL Low HDL Cholesterol HDL >or= 60 mg/dL High HDL Cholesterol Serum or plasma cholesterol in VLDL measurement (mass/volume)Ordered By: Nitin Blair on 05-24-2023 Cholesterol in VLDL [Mass/Vol] 18 mg/dL 5-40 [facility] Serum or plasma creatinine m easurement (mass/volume)Ordered By: Nitin Blair on 05-24-2023 Creatinine [Mass/Vol] 0.98 mg/dL 0.55-1.02 [facility] Comment on above: The validity of the calculated GFR & GFRAA in patients over 70 years has not been determined. Clinical correlation is essential. Serum or plasma low density lipoprotein (LDL) cholesterol measurement (mass/volume)Ordered By: Nitin Blair on 05-24-2023 Cholesterol in LDL [Mass/Vol] 66 mg/dL 0-130 [facility] Serum or plasma urea nitroge n measurement (mass/volume)Ordered By: Nitin Blair on 05-24-2023 Urea nitrogen [Mass/Vol] 18 mg/dL 7-18 [facility] Thin prep Papanicolaou smear with manual screeningOrdered By: Nitin Blair on 05-24-2023 Thin prep Papanicolaou smear with manual screening 7 - [facility] Thin prep Papanicolaou smear with manual screening 70.2 mg/L NO RANGE EST. [facility] Urine creatinine measurement (mass/volume)Ordered By: Nitin Blair on 05-24-2023 Creatinine (U) [Mass/Vol] 64.50 mg/dL NO RANGE EST. [facility] Basophil percentageOrdered B y: Dr. Blair on 08-23-2022 Chloride [Moles/Vol] 98 mmol/L 98-107 [facility] Glucose [Mass/Vol] 113 mg/dL 74-106 [facility] Comment on above: Fasting Glucose resu lt from 100 to 125 mg/dL suggests IMPAIRED HOMEOSTASIS per A.D.A. criteria. Potassium [Moles/Vol] 3.4 mmol/L 3.5-5.1 [facility] Sodium [Moles/Vol] 135 mmol/L 136-145 [facility] Laboratory - Chemistry and C hemistry - challengeOrdered By: Dr. Blair on 08-23-2022 CO2 [Moles/Vol] 27.0 mmol/L 21.0-32.0 [facility] Urea nitrogen/Creatinine [Mass ratio] 20.3 mg/mg 10-20 [facility] No Panel InformationOrdered By: Dr. Blair on 08-23-2022 Estimated GFR (MDRD) Amer 75 mL/min >60 [facility] Comment on above: GFR Calc Estimated GFR (MDRD) Non-Af Amer 62 mL/min >60 [facility] Comment on above: Non- GFR Calc Serum or plasma calcium km urement (mass/volume)Ordered By: Dr. Blair on 08-23-2022 Calcium [Mass/Vol] 9.1 mg/dL 8.5-10.1 [facility] Serum or plasma creatinine m easurement (mass/volume)Ordered By: Dr. Blair on 08-23-2022 Creatinine [Mass/Vol] 0.93 mg/dL 0.55-1.02 [facility] Comment on above: The validity of the calculated GFR & GFRAA in patients over 70 years has not been determined. Clinical correlation is essential. Serum or plasma urea nitroge n measurement (mass/volume)Ordered By: Dr. Blair on 08-23-2022 Urea nitrogen [Mass/Vol] 19 mg/dL 7-18 [facility] Thin prep Papanicolaou smear with manual screeningOrdered By: Dr. Blair on 08-23-2022 Thin prep Papanicolaou smear with manual screening 10 10-23 [facility] Basophil percentageon 2021 Chloride [Moles/Vol] 101 mmol/L 98-107 [facility] Work Phone: Glucose [Mass/Vol] 237 mg/dL 74-106 [facility] Work Phone: Comment on above: Glucose result great er than or equal to 200 mg/dLsuggests DIABETES MELLITUS per A.D.A. criteria. Potassium [Moles/Vol] 3.8 mmol/L 3.5-5.1 [facility] Work Phone: Sodium [Moles/Vol] 135 mmol/L 136-145 [facility] Work Phone: Laboratory - Chemistry and C hemistry - challengeon 03-23-2022 CO2 [Moles/Vol] 25.0 mmol/L 21.0-32.0 [facility] Work Phone: Urea nitrogen/Creatinine [Mass ratio] 16.3 mg/mg 03-30 [facility] Work Phone: No Panel Informationon 03-23 Estimated GFR (MDRD) Amer 54 mL/min >60 [facility] Work Phone: Comment on above: GFR Calc Estimated GFR (MDRD) Non-Af Amer 45 mL/min >60 [facility] Work Phone: Comment on above: Non- GFR Calc Serum or plasma calcium km urement (mass/volume)on 03-23-2022 Calcium [Mass/Vol] 9.0 mg/dL 8.5-10.1 [facility] Work Phone: Serum or plasma creatinine m easurement (mass/volume)on 03-23-2022 Creatinine [Mass/Vol] 1.23 mg/dL 0.55-1.02 [facility] Work Phone: Comment on above: The validity of the calculated GFR & GFRAA in patients over 70 years has not been determined. Clinical correlation is essential. Serum or plasma urea nitroge n measurement (mass/volume)on 03-23-2022 Urea nitrogen [Mass/Vol] 20 mg/dL 7-18 [facility] Work Phone: Thin prep Papanicolaou smear with manual screeningon 03-23-2022 Thin prep Papanicolaou smear with manual screening 9 - [facility] Work Phone: Basophil percentageon 2021 Chloride [Moles/Vol] 98 mmol/L 98-107 [facility] Work Phone: Cholesterol [Mass/Vol] 127 mg/dL <200 [facility] Work Phone: Comment on above: <200 mg/dL Desirable 200-240 mg/dL Borderline >240 mg/dL High Risk Glucose [Mass/Vol] 101 mg/dL 74-106 [facility] Work Phone: Comment on above: Fasting Glucose resu lt from 100 to 125 mg/dL suggests IMPAIRED HOMEOSTASIS per A.D.A. criteria. Potassium [Moles/Vol] 3.4 mmol/L 3.5-5.1 [facility] Work Phone: Sodium [Moles/Vol] 133 mmol/L 136-145 [facility] Work Phone: Triglyceride [Mass/Vol] 67 mg/dL <199 [facility] Work Phone: Comment on above: The drugs N-Acetylcy steine and Metamizole may falsely depress this assay.Serum Triglycerides Reference Interval Normal <150 mg/dL Borderline high 150 - 199 mg/dL High 200 - 499 mg/dL Very High > or = 500 mg/dL Laboratory - Chemistry and C hemistry - challengeon 02-23-2022 CO2 [Moles/Vol] 26.0 mmol/L 21.0-32.0 [facility] Work Phone: Urea nitrogen/Creatinine [Mass ratio] 19.4 mg/mg 10-20 [facility] Work Phone: No Panel Informationon 02-23 Estimated GFR (MDRD) Amer 63 mL/min >60 [facility] Work Phone: Comment on above: GFR Calc Estimated GFR (MDRD) Non-Af Amer 52 mL/min >60 [facility] Work Phone: Comment on above: Non- GFR Calc Serum or plasma calcium km urement (mass/volume)on 02-23-2022 Calcium [Mass/Vol] 8.7 mg/dL 8.5-10.1 [facility] Work Phone: Serum or plasma cholesterol in HDL measurement (mass/volume)on 02-23-2022 Cholesterol in HDL [Mass/Vol] 54 mg/dL >40 [facility] Work Phone: Comment on above: The drugs N-Acetylcy steine and Metamizole may falsely depress this assay. Reference Range HDL <40 mg/dL Low HDL Cholesterol HDL >or= 60 mg/dL High HDL Cholesterol Serum or plasma cholesterol in VLDL measurement (mass/volume)on 02-23-2022 Cholesterol in VLDL [Mass/Vol] 13 mg/dL 5-40 [facility] Work Phone: Serum or plasma creatinine m easurement (mass/volume)on 02-23-2022 Creatinine [Mass/Vol] 1.08 mg/dL 0.55-1.02 [facility] Work Phone: Comment on above: The validity of the calculated GFR & GFRAA in patients over 70 years has not been determined. Clinical correlation is essential. Serum or plasma low density lipoprotein (LDL) cholesterol measurement (mass/volume)on 02-23-2022 Cholesterol in LDL [Mass/Vol] 60 mg/dL 0-130 [facility] Work Phone: Serum or plasma urea nitroge n measurement (mass/volume)on 02-23-2022 Urea nitrogen [Mass/Vol] 21 mg/dL 7-18 [facility] Work Phone: Thin prep Papanicolaou smear with manual screeningon 02-23-2022 Thin prep Papanicolaou smear with manual screening 9 5-15 [facility] Work Phone: Replaced Document: Belia Koenig CG Observationson 11-11-2015 EKG QRS axis 55 deg [place] [facility] Work Phone: [phone] Interpretation Sinus Rhythm WITHIN NORMAL LIMITS [facility] Work Phone: [phone] P [place] 66 deg [place] [facility] Work Phone: [phone] AL Interval 146 ms [place] [facility] Work Phone: [phone] QRS Duration 90 ms [place] [facility] Work Phone: [phone] QT Interval new path ms [facility] Work Phone: [phone] QTc Baxter 414 ms [place] [facility] Work Phone: [phone] T [place] 63 deg [place] [facility] Work Phone: [phone] Clinical Lists Update: 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 of credit clerk 11-09-2015 Left ventricular Ejection fraction 65 % [place] [facility] Work Phone: [phone] Office Visit: [facility] 10-22-19 15 cardiac risk group C [facility] Work Phone: [phone] General cardiovascular disease 10Y risk [#] [place] N/A [place] [facility] Work Phone: [phone] Tobacco smoking status NHIS Never smoker [facility] Work Phone: [phone] Tobacco smoking status NHIS Never [facility] [facility] Work Phone: [phone] External Other: Preferred Me thod of Contacton 04-22-2014 methcontact secmsg [place] [facility] Work Phone: [phone] Clinical Lists Update: 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 of credit clerk 02-18-2013 Glucose [Mass/Vol] 99 mg/dL [facility] Work Phone: [phone] Calcium [Mass/Vol] 9.1 mg/dL [facility] Work Phone: [phone] Chloride [Moles/Vol] 102 mmol/L [facility] Work Phone: [phone] Cholesterol [Mass/Vol] 151 mg/dL [facility] Work Phone: [phone] Cholesterol in HDL [Mass/Vol] 49 mg/dL [facility] Work Phone: [phone] Cholesterol in LDL [Mass/Vol] 88 mg/dL [place] [facility] Work Phone: [phone] CO2 (BldV) [Partial pressure] 27.0 mmol/L [facility] Work Phone: [phone] Creatinine [Mass/Vol] 1.0 mg/dL [facility] Work Phone: [phone] Lipoprotein.pre-beta [Mass/Vol] 14 mg/dL [facility] Work Phone: [phone] Potassium [Moles/Vol] 3.8 mmol/L [facility] Work Phone: [phone] Sodium [Moles/Vol] 139 mmol/L [facility] Work Phone: [phone] Triglyceride [Mass/Vol] 70 mg/dL [facility] Work Phone: [phone] Urea nitrogen [Mass/Vol] 21 mg/dL [facility] Work Phone: [phone] Lab Report: CBCDon 3 Hematocrit (Bld) [Volume fraction] 33.4 % Low 37-47 [facility] Work Phone: [phone] Hemoglobin (Bld) [Mass/Vol] 11.6 g/dL Low 12.0-15.0 [facility] Work Phone: [phone] Platelets (Bld) [#/Vol] 207 10*3/mm3 Normal 150-450 [place] [facility] Work Phone: [phone] RBC (Bld) [#/Vol] 3.85 10*6/uL Low 4.2-5.4 [facility] Work Phone: [phone] WBC (Bld) [#/Vol] 4.8 10*3/uL Normal 4.4-11.0 [facility] Work Phone: [phone] Lab Report: T4on 01-09-2013 T4 [Mass/Vol] 11.3 ug/dL Normal 4.8-13.9 [facility] Work Phone: [phone] Lab Report: TSHon 01-09-2013 TSH Qn 1.27 u[iU]/mL Normal 0.358-3.74 [facility] Work Phone: [phone] Clinical Lists Update: 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 of credit clerk 08-07-2012 ALP (Bld) [Catalytic activity/Vol] 53 U/L [facility] Work Phone: [phone] ALT [Catalytic activity/Vol] 22 U/L [facility] Work Phone: [phone] Anion gap [Moles/Vol] 9 mmol/L [facility] Work Phone: [phone] AST [Catalytic activity/Vol] 13 U/L [facility] Work Phone: [phone] Bilirubin [Mass/Vol] 1.10 mg/dL [facility] Work Phone: [phone] Urea nitrogen/Creatinine [Mass ratio] 18.0 mg/mg [facility] Work Phone: [phone] Vital Signs Date Time Vital Sign Value Performing Clinician Faci hermanny 03-06-2025 07:43-0400 Body mass index (BMI) [Ratio] 25 kg/m2 Dr. Nitin Blair MD Work Phone: [facility] 03-06-2025 07:43-0400 Body weight 66.[address] Nitin Blair MD Work Phone: [phone] [place] [address] 03-06-2025 07:43-0400 Diastolic blood pressure 75 mm[Hg] Dr. Nitin Blair MD Work Phone: [facility] 03-06-2025 07:43-0400 Heart rate 73 /min Dr. Nitin Blair MD Work Phone: [phone] [place] [address] 03-06-2025 07:43-0400 Respiratory rate 18 /min Dr. Nitin Blair MD Work Phone: [phone] [place] [address] 03-06-2025 07:43-0400 SaO2% (BldA) [Mass fraction] 100 % Dr. Nitin Blair MD Work Phone: [phone] [place] [address] 03-06-2025 07:43-0400 Systolic blood pressure 160 mm[Hg] Dr. Nitin Blair MD Work Phone: [phone] [place] [address] 12-30-2024 13:03-0400 Diastolic blood pressure 67 mm[Hg] Dr. Nitin Blair MD Work Phone: [phone] [place] [address] 12-30-2024 13:03-0400 Heart rate 71 /min Dr. Nitin Blair MD Work Phone: [phone] [place] [address] 12-30-2024 13:03-0400 Systolic blood pressure 171 mm[Hg] Dr. Nitin Blair MD Work Phone: [phone] [place] [address] 12-30-2024 12:51-0400 Body height 162.[address] Nitin Blair MD Work Phone: [phone] [place] [address] 12-30-2024 12:51-0400 Body mass index (BMI) [Ratio] 24.9 kg/m2 Dr. Nitin Blair MD Work Phone: [phone] [place] [address] 12-30-2024 12:51-0400 Body weight 65.[address] Nitin Blair MD Work Phone: [phone] [address] 12-30-2024 12:51-0400 Respiratory rate 16 /min Dr. Nitin Blair MD Work Phone: [facility] 03-16-2023 10:49-0400 Body height 160.[address] Nitin Blair Work Phone: [facility] 03-16-2023 10:49-0400 Body mass index (BMI) [Ratio] 28.5 kg/m2 Dr. Nitin Blair Work Phone: [facility] 03-16-2023 10:49-0400 Body weight 73.[address] Nitin Blair Work Phone: [facility] 03-16-2023 10:49-0400 Diastolic blood pressure 73 mm[Hg] Dr. Nitin Blair Work Phone: [facility] 03-16-2023 10:49-0400 Heart rate 80 /min Dr. Nitin Blair Work Phone: [facility] 03-16-2023 10:49-0400 Respiratory rate 18 /min Dr. Nitin Blair Work Phone: [facility] 03-16-2023 10:49-0400 SaO2% (BldA) [Mass fraction] 97 % Dr. Nitin Blair Work Phone: [facility] 03-16-2023 10:49-0400 Systolic blood pressure 159 mm[Hg] Dr. Nitin Blair Work Phone: [facility] 01-23-2022 11:39-0400 Body height 160.[address] Nitin Blair Work Phone: [facility] Work Phone: 01-23-2022 11:39-0400 Body mass index (BMI) [Ratio] 27.7 kg/m2 Dr. Nitin Blair Work Phone: [facility] Work Phone: 01-23-2022 11:39-0400 Body weight 70.[address] Nitin Blair Work Phone: [facility] Work Phone: 01-23-2022 11:39-0400 Diastolic blood pressure 70 mm[Hg] Dr. Nitin Blair Work Phone: [facility] Work Phone: 01-23-2022 11:39-0400 Heart rate 68 /min Dr. Nitin Blair Work Phone: [facility] Work Phone: 01-23-2022 11:39-0400 Respiratory rate 16 /min Dr. Nitin Blair Work Phone: [facility] Work Phone: 01-23-2022 11:39-0400 Systolic blood pressure 150 mm[Hg] Dr. Nitin Blair Work Phone: [facility] Work Phone: 10-23-2016 14:22-0400 BMI (Body Mass Index) 27.1 kg/m2 [facility] Work Phone: 10-23-2016 14:22-0400 Body weight 71.62 kg [facility] Work Phone: 10-23-2016 14:22-0400 BP Diastolic 70 mm[Hg] [facility] Work Phone: 10-23-2016 14:22-0400 BP Systolic 142 mm[Hg] [facility] Work Phone: 10-23-2016 14:22-0400 Height 162.56 cm [facility] Work Phone: 10-23-2016 14:22-0400 Pulse (Heart Rate) 57 /min [facility] Work Phone: 10-23-2016 14:22-0400 Pulse Oximetry 100 % [facility] Work Phone: 04-26-2016 14:09-0500 BSA (Body Surface Area) 1.75 m2 [facility] Work Phone: 04-26-2016 14:09-0500 Respiratory Rate 16 /min [facility] Work Phone: 11-11-2015 09:12-0400 Heart rate 81 /min [facility] Work Phone: 01-09-2013 12:15-0400 Heart rate 410 ms [facility] Work Phone: Encounters Encounter Date Encounter Type Care Provider Facility Start: 04-14-2025 End: 04-14-2025 ambulatory Nicholas Dominguez [place] [place]: 04-13-2025 End: 04-13-2025 Emergency department patient visit Antoni Cotton Facility:[facility] Start: 04-02-2025 End: 04-02-2025 ambulatory [facility] Facility:[facility] Start: 03-19-2025 End: 03-19-2025 ambulatory [facility] Facility:[facility] Start: 03-06-2025 End: 03-06-2025 Patient encounter procedure Marisela MERRITT -[facility] Work Phone: Start: 03-06-2025 End: 03-06-[address] Nitin Blair MD Work Phone: -[facility] Start: 01-23-2025 ambulatory Nitin Blair Facility:[facility] Start: 01-23-2025 Non-patient / Non-visit Dr. Venegas Of [facility] -[facility] Start: 01-23-2025 End: 01-23-[address] Nitin Blair MD Work Phone: -[facility] Services Start: 01-23-2025 End: 01-23-2025 Patient encounter procedure Marisela Bernardo PA -[facility] Work Phone: Start: 01-23-2025 End: 01-23-2025 ambulatory Nitin Blair Facility:[facility] Start: 01-02-2025 Non-patient / Non-visit Dr. Venegas Of [facility] -[facility] Work Phone: Start: 01-02-2025 End: 01-02-[address] Nitin Blair MD Work Phone: -Pulmonary Services/Neurology Start: 01-02-2025 End: 01-02-2025 Patient encounter procedure Marisela MERRITT -Pulmonary Services/Neurology Work Phone: Start: 01-02-2025 End: 01-02-2025 ambulatory Nitin Blair Facility:[facility] Start: 12-30-2024 End: 12-30-2024 Patient encounter procedure Marisela MERRITT -[facility] Work Phone: Start: 12-30-2024 End: 12-30-[address] Nitin Blair MD Work Phone: -[facility] Start: 12-29-2024 End: 12-29-[address] Nitin Blair MD Work Phone: -Laboratory [facility] Start: 12-29-2024 End: 12-29-[address] Nitin Blair MD -Laboratory [facility] Start: 12-29-2024 End: 12-29-2024 ambulatory Nitin Blair Facility:[facility] Start: 12-25-2024 End: 12-25-[address] Nitin Blair MD Work Phone: -[facility] Start: 12-25-2024 End: 12-25-[address] Nitin Blair MD -Laboratory [place] Work Phone: Start: 12-25-2024 End: 12-25-2024 ambulatory Nitin Blair Facility:[facility] Start: 06-30-2024 End: 06-30-2024 ambulatory Nitin Blair Facility:[facility] Start: 05-12-2024 End: 05-12-2024 ambulatory Nitin Blair Facility:[facility] Start: 09-26-2023 End: 09-26-2023 ambulatory [facility] Work Phone: Start: 09-26-2023 End: 09-26-2023 Patient encounter procedure [facility] Start: 05-24-2023 End: 05-24-[address] Nitin Blair Work Phone: [facility] Work Phone: Start: 05-24-2023 End: 05-24-[address] Nitin Blair Work Phone: [facility] Start: 03-16-2023 End: 03-16-[address] Nitin Blair Work Phone: [facility] Work Phone: Start: 03-16-2023 End: 03-16-[address] Nitin Blair Work Phone: [facility] Work Phone: Start: 08-23-2022 End: 08-23-2022 ambulatory [facility] Work Phone: Start: 08-23-2022 End: 08-23-2022 Patient encounter procedure [facility] Start: 03-23-2022 End: 03-23-[address] Nitin Blair Work Phone: [facility] Work Phone: Start: 03-23-2022 End: 03-23-[address] Nitin Blair Work Phone: [facility] Start: 03-13-2022 End: 03-13-[address] Nitin Blair Work Phone: [facility] Work Phone: Start: 03-13-2022 End: 03-13-[address] Nitin Blair Work Phone: [facility] Start: 02-23-2022 End: 02-23-[address] Nitin Blair Work Phone: [facility] Work Phone: Start: 02-23-2022 End: 02-23-[address] Nitin Blair Work Phone: [facility] Start: 01-23-2022 End: 01-23-[address] Nitin Blair Work Phone: [facility] Procedures Date Procedure Procedure Detail Performing Clinician Start: 01-23-2025 Radionuclide imaging of perfusion of myocardium under exercise stress Dr. Nitin Blair MD Work Phone: Start: 12-29-2024 Urine microalbumin/creatinine ratio measurement Dr. Nitin Blair MD Work Phone: Start: 12-25-2024 Urine microalbumin/creatinine ratio measurement Dr. Nitin Blair MD Work Phone: Start: 03-16-2023 Screening mammography D dori Blair Work Phone: Start: 03-13-2022 Screening mammography Kyle Blair Work Phone: Start: 10-23-2016 End: 10-23-2016 [...] PA-C Work Phone: Start: 10-21-2014 End: 10-26-2015 PF Marisela Bernardo PA-C Work Phone: Start: 04-22-2014 [...] 6 months Follow Up Appt 6 months [facility] Work Phone: Start: 10-23-2016 End: 10-23-2016 PFM PFM [facility] Work Phone: Start: 04-26-2016 End: 04-26-2016 Follow Up Appt 6 months Follow Up Appt 6 months [facility] Work Phone: Start: 04-26-2016 End: 04-26-2016 MMM MMM [facility] Work Phone: Start: 11-11-2015 End: 11-11-2015 Ecg routine ecg w/least 12 lds w/i&r EKG (In office) [facility] Work Phone: Start: 11-11-2015 End: 11-11-2015 Follow Up Appt 6 months Follow Up Appt 6 months [facility] Work Phone: Start: 11-11-2015 End: 11-11-2015 Follow Up Appt Other Follow Up Appt Other [facility] Work Phone: Start: 11-11-2015 End: 11-11-2015 PFM PFM [facility] Work Phone: Start: 04-26-2015 End: 04-26-2015 Follow Up Appt 6 months Follow Up Appt 6 months [facility] Work Phone: Start: 04-26-2015 End: 04-26-2015 MMM MMM [facility] Work Phone: Start: 10-21-2014 End: 10-26-2015 Follow Up Appt 6 months Follow Up Appt 6 months [facility] Work Phone: Start: 10-21-2014 End: 10-26-2015 PFM PFM [facility] Work Phone: Start: 04-22-2014 End: 04-22-2014 Ecg routine ecg w/least 12 lds w/i&r EKG (In office) [facility] Work Phone: Start: 04-22-2014 End: 04-22-2014 Follow Up Appt 6 months Follow Up Appt 6 months [facility] Work Phone: Start: 04-22-2014 End: 10-26-2015 Follow Up Appt Other Follow Up Appt Other [facility] Work Phone: Start: 04-22-2014 End: 04-22-2014 MMM MMM [facility] Work Phone: Start: 10-14-2013 End: 10-14-2013 Follow Up Appt 6 months Follow Up Appt 6 months [facility] Work Phone: Start: 10-14-2013 End: 10-14-2013 PFM PFM [facility] Work Phone: Start: 04-11-2013 End: 04-11-2013 Follow Up Appt 6 months Follow Up Appt 6 months [facility] Work Phone: Start: 04-11-2013 End: 04-11-2013 MMM MMM [facility] Work Phone: Start: 01-09-2013 End: 01-15-2013 *BMP *BMP [facility] Work Phone: Start: 01-09-2013 End: 01-09-2013 *CBC with Differential *CBC with Differential [facility] Work Phone: Start: 01-09-2013 End: 01-15-2013 Chest x-ray X-Ray, Chest, PA & Lateral [facility] Work Phone: Start: 01-09-2013 End: 01-09-2013 Ecg routine ecg w/least 12 lds w/i&r EKG (In office) [facility] Work Phone: Start: 01-09-2013 End: 01-09-2013 Follow Up Appt 3 months Follow Up Appt 3 months [facility] Work Phone: Start: 01-09-2013 End: 01-09-2013 Left Heart Cath Left Heart Cath [facility] Work Phone: Start: 01-09-2013 End: 01-09-2013 PFM PFM [facility] Work Phone: Start: 01-09-2013 End: 01-15-2013 T4 [Mass/Vol] *T4 (Total) [facility] Work Phone: Start: 01-09-2013 End: 01-15-2013 TSH Qn *TSH [facility] Work Phone: 24 Hour ECG [facility] Basic metabolic 2008 panel with ionized calcium - Serum or Plasma [facility] Catheterization of l eft heart [facility] Radionuclide imaging of perfusion of myocardium under exercise stress [facility] Heart [facility] Payers Date Payer Category Payer Self-pay [id number] 2020 Private Health Insurance 101 [id number] 2009 Medicare MEDICARE PART A B [id number] 2009 Unknown SHARAD [id number] Unknown [id number] Unknown [id number] Unknown [id number] Unknown [id number] Unknown [id number] Unknown [id number] Unknown [id number] Unknown [id number] Unknown [id number] Unknown [id number] Unknown [id number] Unknown [id number] Unknown [id number] Unknown [id number] Unknown [id number] Social History Date Type Detail Facility Start: 01-23-2022 End: 03-16-2023 Tobacco smoking status NHIS Unknown if ever smoked [facility] Start: 1945 Sex Assigned At Female W [facility] Start: 11-15-2023 Tobacco smoking stat us NHIS Never smoked tobacco (finding) [facility] Sex Female [facility] Progress note 03-06-2025 Note Date & Type Note Facility 03-06-2025 Progress note [facility] Evaluation note 12-30-2024 Note Date & Type Note Facility 12-30-2024 Evaluation note Diagnosis Onset Date Resolution Mixed hyperlipidemia acute December 30, 2024 12:50pm Atherosclerotic heart disease of [place] coronary artery without angina pectoris chronic December 30, 2024 12:50pm Essential hypertension chronic Ju 2024 12:50pm Ventricular tachyarrhythmia chronic December 30, 2024 12:50pm [facility] Work Phone: Evaluation note 12-30-2024 Note Date & Type Note Facility 12-30-2024 Evaluation note Diagnosis Onset Date Resolution Mixed hyperlipidemia acute December 30, 2024 12:50pm Atherosclerotic heart disease of [place] coronary artery without angina pectoris chronic December 30, 2024 12:50pm Essential hypertension chronic Ju ly 2024 12:50pm Ventricular tachyarrhythmia chronic December 30, 2024 12:50pm Mixed hyperlipidemia acute Feb emb2024 8:27am PAC (premature atrial contraction) acute March 06, 2025 8:27am Atherosclerotic heart disease of [place] coronary artery without angina pectoris chronic March 06, 2025 8:27am Essential hypertension chronic Se ptember 2024 8:27am Ventricular tachyarrhythmia chronic March 06, 2025 8:27am [facility] Work Phone: Evaluation note Note Date & Type Note Facility Evaluation note Diagnosis Onset Date Mixed hyperlipidemia acute Atherosclerotic heart diseas e of [place] coronary artery without angina pectoris chronic Essential hypertension chron ic Ventricular tachyarrhythmia [facility] Work Phone: Evaluation note Note Date & Type Note Facility Evaluation note No assessment information availa [facility] Work Phone: Evaluation note Note Date & Type Note Facility Evaluation note Diagnosis Onset Date Resolution Mixed hyperlipidemia acute December 30, 2024 12:50pm Atherosclerotic heart disease of [place] coronary artery without angina pectoris chronic December 30, 2024 12:50pm Essential hypertension chronic Ju ly 2024 12:50pm Ventricular tachyarrhythmia chronic December 30, 2024 12:50pm [facility] Work Phone: Progress note Note Date & Type Note Facility Progress note Note Date/Time March 06, 2025 9:06am [facility] [address] [place], [place] [id number] OFFICE VISIT Date of Service: 03/06/25 MR#: [id number] Acct: [id number] Name: LAW STAHL Rep #: [id number] : 1945 Provider: NBA Brink Age/Sex: 79/F Location: [facility] [place] Status: Signed HPI HPI History of Present Illness Details: This is a 79-year-old white female with a history of underlying coronary artery calcification and nonobstructive CAD, nonsustained wide-complex tachycardia, hyperlipidemia, and hypertension. She had a stress test in 01/2025 that was negative for ischemia. Pt has not had any palpitations since she was here last. She does not have any chest pain or worsening SOB. She does not have any lightheadedness/dizziness. She does not have any chest pain. She is active. 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: No Is patient in pain?: No Allergies exenatide (From Byetta) Adverse Reaction (Severe, Verified 03/06/25 08:31) hives, nausea, vomiting codeine Adverse Reaction (Intermediate, Verified 03/06/25 08:31) Vomiting liraglutide (From Victoza) Adverse Reaction (Intermediate, Verified 03/06/25 08:31) Nausea,vomiting Medications ?Medication ?Instructions ?Recorded ?Confirmed ?Type metformin 1,000 mg tablet 1,000 mg PO BID 90 days #180 tabs 07/15/18 03/06/25 History pravastatin 40 mg tablet 40 mg PO DAILY 90 days #90 t abs 08/26/18 03/06/25 History cholecalciferol (vitamin D3) 125 125 mcg PO DAILY 07/1303/06/25 History mcg (5,000 unit) capsule dapagliflozin propanediol 5 mg 5 mg PO DAILY 08/01/19 03/06/25 History tablet (Farxiga) esomeprazole magnesium 20 mg 20 mg PO DAILY 08/01/19 0 03/06/25 History capsule,delayed release (Nexium) togbhga-hnjenqaspppzd-uzrfzytr 250 1 tab PO DAILY PRN 01/23/22 03/06/25 History mg-250 mg-65 mg tablet (Excedrin Extra Strength) calcium acetate PO QDAY 03/18/24 03/06/25 Hi story insulin glargine 100 unit/mL (3 15 unit subcut DAILY 1 03/06/25 History mL) subcutaneous pen (Basaglar KwikPen U-100 Insulin) losartan 100 mg tablet 100 mg PO QDAY 12/30/2402/10 History metoprolol succinate 25 mg 25 mg PO QDAY 12/30/2402/10 History tablet,extended release 24 hr spironolactone 25 mg tablet 25 mg PO DAILY #90 tabs 03/06/25 Rx Ejection fraction %: 65 Have you fallen in the past year?: No PFSH Medical History (Updated 03/06/25 @ 09:11 by Marisela MERRITT, PA) Fracture of proximal phalanx of left little finger Fracture of fifth metatarsal bone of left foot Essential hypertension Abnormal stress test Chest discomfort Abnormal myocardial perfusion study Ventricular tachyarrhythmia CAD in [place] artery Diabetes mellitus Atherosclerotic heart disease of [place] coronary artery without angina pectoris Surgical History [...] home: Yes ROS Const Const: Positive for headache(s); Negative for fatigue, weakness or frequent falls Eyes Eyes: Negative for blurry vision ENT ENT: Positive for headache(s); Negative for dizziness or Nosebleed/epistaxis Cardio Chest Pain: No Palpitations: No Edema: None Muscle aches with walking: None Resp Respiratory: Negative for SOB with activity, SOB at rest or SOB orthopnea\SOB lying down GI GI: Negative nausea, vomiting, heartburn, bright, red blood in stools or black,tarry stools : Negative for hematuria Neuro Neuro: Positive for headache(s); Negative for dizziness, lightheadedness, near syncope, syncope, frequent falls, weakness or blurry vision Endo Endo: Negative for fatigue Cardiology Exam Const Appearance: cooperative, healthy appearing, comfortable, no acute distress, welldeveloped and well groomed Nutritional Appearance: average body habitus Orientation: alert, awake and oriented x3 Head Head: normal to inspection, normocephalic and atraumatic Ears: hearing grossly normal bilaterally Nose: external nose normal Face and Sinus: face symmetric Eyes Eyelids: eyelids normal Conjunctivae: conjunctivae normal Pupils: PERRL EOM: EOM intact bilaterally Neck Neck: normal visual inspection and full ROM Carotids: normal carotid upstroke Chest Chest inspection: normal inspection of the chest, symmetric chest movement and normal respiratory effort Auscultation: Bilateral: Clear to Auscultation Cardio Rate: regular rate Rhythm: regular rhythm and ectopic beats Heart sounds: S1 normal and S2 normal; Negative rub, gallop or murmur GI GI: normal to inspection and soft Neuro General: patient alert, patient awake, patient oriented x3, gait normal and moves all extremities Skin Skin: no rashes or lesions noted Extremities Pulses: Normal: Right Radial Pulse and Left Radial Pulse Lower Extremity Edema: None: Bilateral Psych Psychological: normal affect Supplemental Info Supplemental Information Echocardiogram from December 2012: Ejection fraction 65%, trivial mitral valve insufficiency, trivial tricuspid valve insufficiency, and an RVSP of 22 mmHg. Exercise myocardial perfusion stress test 01/2025 79-year-old with a history of dyspnea and PVCs. Stress protocol: Resting EKG demonstrates normal sinus rhythm with a rate of 61 bpm resting bloodpressure is 130/70 mmHg. The patient exercised according to the regular Miguelangel protocol for a total duration of 4 minutes and 15 seconds attaining a maximum heart rate of 164 bpm which was 117% of maximum predicted heart rate; the maximum workload was 7 metabolic equivalents. At rest there were no ST or T wavechanges noted to suggest ischemia and at peak exercise [address] depression were noted in leads II, III and aVF and V5 and V6. Above changes suggestive of ischemia. No clinical angina was noted the test was terminated due to the target heart rate being achieved/fatigue. The peak blood pressure bos572/72 mmHg. Rate-pressure product was 18,000. Myocardial perfusion protocol. 10.6 mCi of technetium 99m sestamibi was injected at rest. The patient exercisedaccording to regular Miguelangel protocol for total duration of 4 minutes and 15 seconds and at peak exercise 32.8 mCi of technetium 99m sestamibi was injected stress images were obtained stress and rest images were reconstructed in comparing the short axis vertical long and horizontal long axis. Gated images were also obtained. Perfusion SPECT analysis: Review of the stress images demonstrate normal uptake of tracer noted in all areas of the myocardium. The resting images similarly demonstrate normal uptake of tracer noted in all areas of the myocardium. No areas of reversibility are noted to suggest ischemia no previous infarct was noted. Gated SPECT analysis: The gated ejection fraction is normal %. Conclusion: Normal exercise myocardial perfusion stress test EKG changes noted which were not different from prior EKG . Nuclear stress test from 08/06/18: Impression: 1. Technically adequate (percent predicted maximal heart rate greater than 85%)exercise tolerance test 2. Peak exercise ECG demonstrated approximately 1-[address] segmentdepression in leads II, III, and aVF, and approximately 1 mm of horizontal/upsloping ST segment depression in leads V4 through V6 with gradual resolution towards baseline and recovery 3. There were occasional PACs and PVCs pretest, during exercise, and recovery 4. Nuclear images pending Impression: 1. Rest and stress SPECT Cardiolite nuclear imaging demonstrate A small area ofsubtle diminished tracer uptake in the distal inferior/inferoapical areas statuspost stress potentially compatible with shifting soft tissue attenuation/artifact although a small area of stress induced myocardial ischemiacannot necessarily be excluded . 2. The gated Cardiolite study reports an LVEF of 86 %. Cardiac cath: 08/14/2018 CONCLUSIONS Elevated Left Ventricular End Diastolic Pressure (mild) Normal LV size, wall motion,and systolic function LVEF: by LV gram 65 % [place] Multivessel CAD (non angiographically significant) RECOMMENDATIONS Risk factor modification Medical therapy Follow up with primary care physician for non cardiac evaluation of symptoms CORONARY ANGIOGRAPHY DOMINANCE: Right Dominant LEFT HEART ASSESSMENT Left Ventricular Ejection Fraction: by LV Gram 65 % Normal LV wall motion Elevated Left Ventricular End Diastolic Pressure LVEDP: 15 mmHg LEFT MAIN: Angiographically normal LEFT ANTERIOR DECENDING ARTERY: Mild luminal irregularities PROX LAD: Moderate calcification MID LAD: Moderate calcification CIRCUMFLEX ARTERY: OSTIAL CIRC: Eccentric: 10 % Stenosis RIGHT CORONARY ARTERY: Mild luminal irregularities PROX RCA: Mild calcification, Eccentric: 10 % Stenosis MID RCA: Mild calcification VALVE FINDINGS: Normal Aortic Valve function Normal Mitral Valve function AORTIC ROOT: Angiographically normal Labs: LDL Cholesterol, (0-130) 56 mg/dL HDL Cholesterol, (40-) 57 mg/dL Cholesterol, (<=200) 133 mg/dL Triglycerides, (-199) 75 mg/dL Diagnostics: Electrocardiogram Echocardiogram Stress Test Stress Test Nuclear Medicine Cardiac Catheterization Chest X-Ray Past Visits: Cardiology Visit Today Assessment and Plan Assessment and Plan (1) Atherosclerotic heart disease of [place] coronary artery without angina pectoris: Status: Chronic Qualifiers: [place] vs. transplanted heart: [place] heart Qualified Code(s): I25.10 -Atherosclerotic heart disease of [place] coronary artery without angina pectoris Plan: Patient has a history of coronary artery disease. Her cardiac catheterization from 2018 demonstrated nonobstructive coronary artery disease. She does have moderate disease. With her increase in fatigue and concern over increase in ventricular burden we will obtain a stress test to evaluate for underlying ischemia. (2) Ventricular tachyarrhythmia: Status: Chronic Plan: Patient has a history of ventricular tachyarrhythmia. HM in 12/2024 demonstratedSR with frequent PAC's/PVCs. She will continue with current dose of metoprolol. (3) Mixed hyperlipidemia: Status: Acute Plan: Patient has a history of hyperlipidemia. Her PCP monitors this. She will continue pravastatin 40mg daily, along with aggressive risk factor and lifestylemodifications. Laboratory Tests 12/29/24 08:47 Triglycerides 75 Cholesterol 133 LDL Cholesterol, Calc 61 HDL Cholesterol 57 (4) Essential hypertension: Status: Chronic Plan: Patient has a history of hypertension. Blood pressure is elevated today. Will add spironolactone. She will stop her potassium. She will get a BMP in 2 weeks. At that time we will discuss her blood pressure readings. (5) PAC (premature atrial contraction): Status: Acute Plan: Patient does continue to have frequent PACs. She is not symptomatic with this. She was advised to let us know if this changes. She will continue with her current dose of metoprolol. Orders: Orders Basic Metabolic Profile (BMP) 2 Weeks E78.2 - Mixed hyperlipidemia, I10 - Essential (primary) hypertension, I25.10 - Atherosclerotic heart disease of [place] coronary artery without angina pectoris, I47.2 - Ventricular tachycardia Medications: New spironolactone 25 mg PO DAILY 90 tabs 3RF Discontinued potassium chloride ER Discontinued Reason: Order Completed 20 mEq PO DAILY Patient Instructions: Stop your potassium, start spirolactone Get your blood work in 2 weeks- at that time I will see what your Bp has been running. Plan Details Additional Comments: Thank you for allowing me to participate in the care of your patient. Please don't hesitate to call if any issues arise. This note was generated using a voice recognition system and there may be incorrect words, spelling, or punctuation that were not noted when reviewing theoffice note prior to saving. Portions of this documentation were copied and pasted from previous office visitnotes to provide a cohesive continuity of the history. The note has been reviewed, edited, and updated, as necessary. Follow Up: 03/06/25 (was supposed to see delon soon, please get on his schedule for April. Previous PFM) Coding Level of Care Code Off vis,est,level 4 Diagnoses Atherosclerosis of [place] coronary artery of [place] heart without angina pectoris I25.10 [place] vs. transplanted heart: [place] heart Ventricular tachyarrhythmia I47.2 Mixed hyperlipidemia E78.2 Essential hypertension I10 PAC (premature atrial contraction) I49.1 Coding Level of Care Code Off vis,est,level 4 Diagnoses Atherosclerosis of [place] coronary artery of [place] heart without angina pectoris I25.10 [place] vs. transplanted heart: [place] heart Ventricular tachyarrhythmia I47.2 Mixed hyperlipidemia E78.2 Essential hypertension I10 PAC (premature atrial contraction) I49.1 Clinical Quality Measures Falls Risk Screening/Assistive Devices Have you fallen in the past year?: No Cardiac Ejection fraction %: 65 03/06/25 0911 <Electronically signed by Marisela Berg> Date _ Marisela MERRITT Cosigner Signature: Date (if applicable) CC: ~ [facility] Work Phone: Reason for referral (narrative) Note Date & Type Note Facility Reason for referral (narrative) No reason for referral information available [facility] Work Phone: Chief Complaint and Reason for Visit Chief Complaint Admit Date SEE NOTES IN MAILBOX December 30, 2024 12: 50pm DYSPNEA ON EXERTION January 02, 2025 8:10 am Reason for Visit Admit Date Mixed hyperlipidemia December 30, 2024 12: 50pm Atherosclerotic heart diseas e of [place] coronary artery without angina pectoris December 30, 2024 12:50pm Essential hypertension December 30, 2024 1 2:50pm Ventricular tachyarrhythmia December 30, 12:50pm Chief Complaint 1 Y FU Reason for Visit Mixed hyperlipidemia Atherosclerotic heart disease of [place] coronary artery without angina pectoris Essential hypertension Ventricular tachyarrhythmia Chief Complaint 1 Y FU SCREENING Reason for Visit Mixed hyperlipidemia Atherosclerotic heart disease of [place] coronary artery without angina pectoris Essential hypertension Ventricular tachyarrhythmia Chief Complaint SCREENING 1 Y FU Reason for Visit Mixed hyperlipidemia Atherosclerotic heart disease of [place] coronary artery without angina pectoris Essential hypertension Ventricular tachyarrhythmia Chief Complaint Admit Date SEE NOTES IN MAILBOX December 30, 2024 12: 50pm Chief Complaint Admit Date SEE NOTES IN MAILBOX December 30, 2024 12: 50pm DYSPNEA ON EXERTION January 02, 2025 8:10 am ROUTINE January 02, 2025 8:31 am Chief Complaint Admit Date SEE NOTES IN MAILBOX December 30, 2024 12: 50pm DYSPNEA ON EXERTION January 02, 2025 8:10 am ROUTINE January 02, 2025 8:31 am DYSPNEA ON EXERTION January 02, 2025 8:42 am ARRYHTHMIA January 23, 2025 6: 32am Chief Complaint Admit Date SEE NOTES IN MAILBOX December 30, 2024 12: 50pm DYSPNEA ON EXERTION January 02, 2025 8:10 am ROUTINE January 02, 2025 8:31 am DYSPNEA ON EXERTION January 02, 2025 8:42 am ARRYHTHMIA January 23, 2025 6: 32am 2 M FU March 06, 2025 8:27am Reason for Visit Admit Date Mixed hyperlipidemia December 30, 2024 12: 50pm Atherosclerotic heart diseas e of [place] coronary artery without angina pectoris December 30, 2024 12:50pm Essential hypertension December 30, 2024 1 2:50pm Ventricular tachyarrhythmia December 30 025 12:50pm Mixed hyperlipidemia March 06 8:27am PAC (premature atrial contraction) Septe mber 2024 8:27am Atherosclerotic heart diseas e of [place] coronary artery without angina pectoris March 06, 2025 8:27am Essential hypertension March 06 025 8:27am Ventricular tachyarrhythmia March [id number] 8:27am Family History No Family History Records Found [...] Will Yes February 17 11:41am Power of Installment Loan Collector Yes February 18, 2020 11:41am Advance Directive Response Recorded Date/ Time Advance Directives Yes August 14 7:03am Living Will Yes February 17 10:41am Power of Installment Loan Collector Yes February 18, 2020 10:41am Advance Directive [...] Active Member Role Status Dates Dr. Nitin Blari MD Family Provider Active Dr. Nitin Blair MD Primary Care Provider Active Team Status: Inactive Member Role Status Dates Dr. Nitin Blair MD Primary Care Provi amaris, Attending Provider, Referring Provider Active Team Status: Inactive Member Role Status Dates Dr. Nitin Blair MD Primary Care Provider, Referring Provider Active Shawna Henriquez NP, DISC RULER OPERATOR[employer]iC Attending Provider Active Team Status: Inactive Member [...] Provider Active Start: January 02, 2025 Marisela Bernardo PA, PA Attending Provider Active Start: January 02, 2025 Marisela Bernardo PA, PA Referring Provider Active Start: January 02, 2025 Team Status: Inactive Member Role/Relationship Status Dates Dr. Nitin Blair MD Primary Care Provider Active Start: January 02, 2025 End: January 02, 2025 Marisela Bernardo PA, PA Attending Provider Active Start: January 02, 2025 End: January 02, 2025 Marisela Bernardo PA, PA Referring Provider Active Start: January 02, 2025 End: January 02, 2025 Team Status: Active Member Role/Relationship Status Dates Dr. Nitin Blair MD Primary Care Provider Active Start: January 02, 2025 Dr. Nitin Blair MD Referring Provider Active Start: January 02, 2025 Dr. Theo Hernandez MD Attending Provider Active S tart: January 02, 2025 Team Status: Active Member Role/Relationship Status Dates Dr. Nitin Blair MD Primary Care Provider Active Start: January 02, 2025 Dr. Theo Hernandez MD Attending Provider Active S tart: January 02, 2025 Marisela Bernardo PA, PA Referring Provider Active Start: January 02, 2025 Team Status: Inactive Member Role/Relationship Status Dates Dr. Nitin Blair MD Primary Care Provider Active Start: January 23, 2025 End: January 23, 2025 Marisela Bernardo PA, PA Attending Provider Active Start: January 23, 2025 End: January 23, 2025 Marisela Bernardo PA, PA Referring Provider Active Start: January 23, 2025 End: January 23, 2025 Marisela Bernardo PA, PA Other Provider Active Start: January 23, 2025 End: January 23, 2025 Team Status: Active Member Role/Relationship Status Dates Dr. Nitin Blair MD Primary Care Provider Active Start: January 23, 2025 Dr. Theo Hernandez MD Attending Provider Active S tart: January 23, 2025 Team Status: Active Member Role/Relationship Status Dates Dr. Nitin Blair MD Primary care physician Active Team Status: Inactive Member Role/Relationship Status Dates Dr. Nitin Blair MD Primary care physician Active Start: December 25, 2024 End: December 25, 2024 Dr. Nitin Blair MD Attending physician Active Start: December 25, 2024 End: December 25, 2024 Dr. Nitin Blair MD Referring Provider Active Start: December 25, 2024 End: December 25, 2024 Team Status: Inactive Member Role/Relationship Status Dates Dr. Nitin Blair MD Primary care physician Active Start: December 29, 2024 End: December 29, 2024 Dr. Nitin Blair MD Attending physician Active Start: December 29, 2024 End: December 29, 2024 Dr. Nitin Blair MD Referring Provider Active Start: December 29, 2024 End: December 29, 2024 Team Status: Inactive Member Role/Relationship Status Dates Dr. Nitin Blair MD Primary care physician Active Start: December 30, 2024 End: December 30, 2024 Dr. Nitin Blair MD Referring Provider Active Start: December 30, 2024 End: December 30, 2024 Marisela MERRITT PA Attending physician Active Start: December 30, 2024 End: December 30, 2024 Team Status: Inactive Member Role/Relationship Status Dates Dr. Nitin Blair MD Primary care physician Active Start: January 02, 2025 End: January 02, 2025 Marisela MERRITT, PA Attending physician Active Start: January 02, 2025 End: January 02, 2025 Marisela MERRITT, PA Referring Provider Active Start: January 02, 2025 End: January 02, 2025 Team Status: Active Member Role/Relationship Status Dates Dr. Nitin Blair MD Primary care physician Active Start: January 02, 2025 Dr. Nitin Blair MD Referring Provider Active Start: January 02, 2025 Dr. Theo Hernandez MD Attending physician Active Start: January 02, 2025 Team Status: Active Member Role/Relationship Status Dates Dr. Nitin Blair MD Primary care physician Active Start: January 02, 2025 Dr. Theo Hernandez MD Attending physician Active Start: January 02, 2025 Marisela Bernardo PA, PA Referring Provider Active Start: January 02, 2025 Team Status: Inactive Member Role/Relationship Status Dates Dr. Nitin Blair MD Primary care physician Active Start: January 23, 2025 End: January 23, 2025 NBA Villanueva Attending physician Active Start: January 23, 2025 End: January 23, 2025 NBA Villaneuva Referring Provider Active Start: January 23, 2025 End: January 23, 2025 NBA Villanueva Nurse Practitioner Active Start: January 23, 2025 End: January 23, 2025 Team Status: Active Member Role/Relationship Status Dates Dr. Nitin Blair MD Primary care physician Active Start: January 23, 2025 Dr. Theo Hernandez MD Attending physician Active Start: January 23, 2025 Team Status: Inactive Member Role/Relationship Status Dates Dr. Nitin Blair MD Primary care physician Active Start: March 06, 2025 End: March 06, 2025 Dr. Nitin Blair MD Referring Provider Active Start: March 06, 2025 End: March 06, 2025 NBA Villanueva Attending physician Active Start: March 06, 2025 End: March 06, 2025 INFORMATION SOURCE (unrecogn ized section and content) DATE CREATED AUTHOR 04/15/2025 [facility] FOR RECORDS PERTAINING TO PATIENTS WHO ARE [...] BE BASED ON THE PRIMARY CLINICAL RECORDS. [employer] provides no warranty or guarantee of the accuracy or completeness of information in this document.
== END | disposition home or self-care (01) ==
LOC: OPBI 08:12
PROVIDERS: PCP Family Medicine; Referring Provider Family Medicine; Visit Provider Family Medicine
DX: Z12.31 Encounter for screening mammogram for malignant neoplasm of breast (principal)
CPT/HCPCS: 77063; 77067